=== PATIENT | male | born 1955 | race Caucasian/White ===

== ENCOUNTER 2020-05-22 19:19 | Day surgery (SDC) | payer MEDICARE, SELFPAY ==
[2020-05-22] VITALS (9 sets, daily range): BP systolic 108–142; BP diastolic 71–85; PULSE 72–84; RESP 18–20; TEMP 36.3–36.9; O2SAT 94–98; BMI 25.7
--- NOTE | 2020-05-22 20:31 | XRR_ITS ---
PROCEDURE INFORMATION: Exam: XR Left Femur Exam date and time: 05/22/2020 8:34 PM Age: 64 years old Clinical indication: Injury or trauma; Other: Chainsaw injury; Laceration; Thigh or upper leg; Left; Foreign body involvement not specified; Additional info: Chainsaw injury to left thigh. Laceration TECHNIQUE: Imaging protocol: XR Left femur. Views: 2 views. COMPARISON: No relevant prior studies available. FINDINGS: Bones/joints: No acute fracture or dislocation. Soft tissues: There is soft tissue edema and subcutaneous emphysema lateral left thigh. No foreign body. XR/XR femur LT min 2V* [id number] IMPRESSION: There is soft tissue edema and subcutaneous emphysema lateral left thigh. No foreign body.
[2020-05-22] MEDS: tetanus-dipt-pertussis 0.5 mL SDV IM (20:50)
[2020-05-22] MEDS: ondansetron 2 mg/ML SDV 2 mL 4 MG IVP (21:21)
[2020-05-22] MEDS: HYDROmorphone 1 mg/mL INJ 1 mL IVP (21:21)
--- NOTE | 2020-05-22 21:55 | W.ED.WOUNDLC ---
Documented by User: KEON Alvarez 05/22/20 22:53 HPI - Wound/Laceration General: Chief Complaint: Wound/Laceration Stated Complaint: LEFT LEG LAC Time Seen by Provider: 05/22/20 20:47 History of Present Illness: HPI narrative: Patient is a 64-year-old male comes to the ED with laceration to left thigh due to chainsaw. Patient says he was using a chainsaw cutting some wood and it kicked back and chainsaw struck his left upper thigh. He rates his pain an 8 out of 10. Patient said chainsaw slipped and cut into his left thigh. He says the laceration is deep and he could see that he cut through the muscle and thinks he could see bone. Patient taped wound to close up and minimize bleeding and then came to the ED. Patient needs an updated tetanus shot. Patient tetanus UTD: No Associated symptoms: Denies chills, fever(s), nausea or vomiting Review of Systems Const: Denies: fever(s), chills or fatigue Eyes: Denies: change in vision or eye discomfort ENMT: Denies: throat pain, odynophagia, nasal discharge or nasal congestion Card: Denies: chest pain, palpitations, edema, swelling of feet/ankles, dyspnea on exertion or orthopnea Resp: Denies: dyspnea, productive cough or non-productive cough GI: Denies: abdominal pain, nausea, vomiting, diarrhea, constipation or hematochezia : Denies: flank pain, difficulty urinating, dysuria or hematuria Musc: Reports: extremity pain (left thigh); Denies: neck pain, back pain or extremity swelling Skin/Breast: Reports: new lesions (left thigh deep laceration); Denies: rash Neuro: Denies: headache(s), numbness in extremities or weakness in extremities PFS ED PFSH: Medical History (Updated 05/22/20 @ 23:04 by Kalyan Segal MD) DJD (degenerative joint disease) H/O renal cell cancer Surgical History (Updated 05/22/20 @ 23:04 by Kalyan Segal MD) H/O hand surgery H/O laceration repair (05/22/20) H/O skin graft S/p nephrectomy Physical Exam Const: COMMON NORMALS: patient oriented x3 and alert GENERAL APPEARANCE: cooperative; not comfortable (uncomfortable due to pain) HENMT: COMMON NORMALS: normocephalic HEAD & SCALP: normocephalic MOUTH: Normal oral and palatal mucosa present THROAT: posterior oropharynx normal and uvula midline Neck/C-Spine: COMMON NORMALS: supple GENERAL: Yes normal visual inspection Resp: COMMON NORMALS: normal respiratory effort, No retractions, No use of accessory muscles and clear to auscultation bilaterally AUSCULTATION: clear to auscultation bilaterally Cardio: COMMON NORMALS: regular rate, regular rhythm, S1 normal heart sound present, S2 normal heart sound present, No gallops present (Cardio), No clicks present (Cardio), No murmurs present (Cardio) and Peripheral pulses 2+ throughout RATE: regular rate RHYTHM: regular rhythm HEART SOUNDS: S1 normal heart sound present and S2 normal heart sound present PERIPHERAL PULSES: Peripheral pulses 2+ throughout GI: COMMON NORMALS: Normal to inspection, nondistended, normoactive bowel sounds present, Soft to palpation, non-tender and no masses PALPATION: Yes Soft to palpation : COMMON NORMALS: Yes no CVA tenderness BLADDER/KIDNEY EXAM: Yes no CVA tenderness Back/Pelvis: COMMON NORMALS: no CVA tenderness Extremity: NARRATIVE EXTREMITY EXAM: Deep 14 cm linear laceration to the left upper thigh. It involves the muscle tissue. GENERAL: Yes normal exam except as noted Neuro: COMMON NORMALS: patient oriented x3 and moves all extremities SENSORIUM/ORIENTATION: Yes alert Skin: GENERAL SKIN EXAM: dry skin TRAUMA: laceration (14 cm linear deep laceration) linear, actively bleeding (minimal), contaminated (possibly contaminated with wood), involves subcutaneous tissue and involves muscle tissue Course Vital Signs: Vital signs: Vital Signs Temperature 98.5 F 05/22/20 22:31 Pulse Rate 76 05/22/20 22:33 Respiratory Rate 20 H 05/22/20 22:33 Blood Pressure 116/74 05/22/20 22:33 Pulse Oximetry 97 05/22/20 22:33 MDM - Wound/Laceration Imaging Data^: Xray Ortho: Attestation: I personally reviewed and interpreted this imaging study as follows: Radiologist's impression: [address] [address] XRay Report Signed Patient: Ezequiel Davis Unit #: [id number] : 1955 Age/Sex: 64 / M ADM Date: 05/22/20 Loc: ER Room/Bed: Attending Dr: Ordering Provider/Ordering MD: Misael Shaw Date of Service: 05/22/20 Procedure(s): XR femur LT min 2V* [id number] Accession Number(s): [id number] Report Number: [id number] PROCEDURE INFORMATION: Exam: XR Left Femur Exam date and time: 05/22/2020 8:34 PM Age: 64 years old Clinical indication: Injury or trauma; Other: Chainsaw injury; Laceration; Thigh or upper leg; Left; Foreign body involvement not specified; Additional info: Chainsaw injury to left thigh. Laceration TECHNIQUE: Imaging protocol: XR Left femur. Views: 2 views. COMPARISON: No relevant prior studies available. FINDINGS: Bones/joints: No acute fracture or dislocation. Soft tissues: There is soft tissue edema and subcutaneous emphysema lateral left thigh. No foreign body. XR/XR femur LT min 2V* [id number] IMPRESSION: There is soft tissue edema and subcutaneous emphysema lateral left thigh. No foreign body. Dictated By: Nohemi Valerio Signed By: Nohemi Valerio Signed Date/Time: 05/22/202099 DD/ 57 Discharge Plan Discharge Patient Disposition: Admitted As Inpatient Condition: Stable Discharge Diet: Advance as tolerated Discharge Activity: Increase activity as tolerated Coding Level of Care Code ED Memorial Adviser for Chg Fwd Exam Comprehensive Documented by User: Sanna Goldberg MD 05/22/20 23:18 HPI - Wound/Laceration General: Chief Complaint: Wound/Laceration Stated Complaint: LEFT LEG LAC Time Seen by Provider: 05/22/20 20:47 PFSH ED PFSH: Medical History (Updated 05/22/20 @ 23:04 by Kalyan Segal MD) DJD (degenerative joint disease) H/O renal cell cancer Surgical History (Updated 05/22/20 @ 23:04 by Kalyan Segal MD) H/O hand surgery H/O laceration repair (05/22/20) H/O skin graft S/p nephrectomy Procedures Nerve Block Nerve Block 1: Time out performed: Yes Local Anesthetic: lidocaine 1% Amount of anesthesia used (mL): 20 Side: left Nerve Blocks: femoral Procedure Successful: No (partial anesthesia to the thigh, but inadequate for procedure) Patient Tolerated Procedure: well and no complications Complications: none Course ED course: I saw this patient with KEON Alvarez. The lac is on the anterior thigh and is approx 20 cm in length - transverse to the leg. No bone involvement. Approx 1/2 - 3/4 of the quadriceps is cut. Many wood chips in the wood. I was not able to get adequate anesthesia to the wound to get adequate cleaning. Discussed with Dr. Londono - veterans rehabilitation counselor for ortho but as the bone was not involved he asked met [facility] general surgery. Dr. Segla will take him to the OR tonight. Vital Signs: Vital signs: Vital Signs Temperature 98.5 F 05/22/20 22:31 Pulse Rate 76 05/22/20 22:33 Respiratory Rate 20 H 05/22/20 22:33 Blood Pressure 116/74 05/22/20 22:33 Pulse Oximetry 97 05/22/20 22:33 Discharge Plan Discharge Patient Disposition: Admitted As Inpatient Condition: Stable Discharge Diet: Advance as tolerated Discharge Activity: Increase activity as tolerated Coding Level of Care Code ED Memorial Adviser for Chantale Fwd Exam Comprehensive
--- NOTE | 2020-05-22 22:38 | PM.HP ---
Providers/Chief Complaint Chief Complaint: LEFT LEG LAC History of Present Illness Ezequiel Davis is a 64 year old male who had a chainsaw accident around 6 PM and presented to the ER for further evaluation. Patient denies any history of alcohol consumption. He had a small amount of bleeding which subsequently stopped. Denies any loss of consciousness or any other injuries. X-ray of the left thigh did not reveal any bony injuries. An attempt was made at closure of the wound in the ER but was unsuccessful due to difficulty with pain control. Patient planes of pain but is able to bend his knee and denies any loss of sensation distal to the laceration. Review of Systems General: Reports: 10 or more systems reviewed and unremarkable except in HPI and below Medications/Allergies Allergies Allergy/AdvReac Type Severity Reaction Status Date / Time fentanyl Allergy ALGY-Rash Verified 05/22/20 21:05 morphine Allergy ALGY-Hives Verified 05/22/20 21:05 PFSH Acute PFSH: Medical History (Updated 05/22/20 @ 22:38 by Kalyan Segal MD) DJD (degenerative joint disease) H/O renal cell cancer Surgical History (Updated 05/22/20 @ 22:38 by Kalyan Segal MD) H/O hand surgery H/O skin graft S/p nephrectomy Vitals/I&O/Wt Last Vital Signs Temp 98.5 F 05/22/20 22:31 Pulse 76 05/22/20 22:33 Resp 20 H 05/22/20 22:33 BP 116/74 05/22/20 22:33 Pulse Ox 97 05/22/20 22:33 Weight last 48 hrs Weight 200 lb Physical Exam Narrative: EXAM NARRATIVE: HEENT: Normocephalic Eye: Sclera /conjunctiva normal Respiratory and chest: Bilateral clear breath sounds on auscultation Cardiovascular: Normal S1 and S2 heart sounds Abdomen: Soft to palpation, multiple scars, skin graft to the abdominal wall Neurological: Oriented to place person and time Skin: Intact, 20 cm laceration on the anterior aspect of the left thigh, no significant hematoma or cellulitis noted A&P Assessment and plan (1) Laceration: 64-year-old male with traumatic laceration on the left thigh from a chainsaw. Patient is currently hemodynamically stable Plan for washout and closure of left thigh wound under MAC today Procedure, risks, benefits and alternatives have been discussed with the patient who wishes to proceed with surgery. Status: Acute Attestations Medical Necessity Statement*: Left thigh laceration requiring surgery Coding Level of Care Code Acute Guest Service Host for Chantale Soria Diagnoses Laceration
--- NOTE | 2020-05-22 22:50 | ANES.PREANE2 ---
Pre-Anesthetic Assessment Pre-Anesthetic Assessment: Height/Weight: Height 1.88 m Weight 90.718 kg Temp Pulse Resp BP Pulse Ox 98.5 F 76 20 H 116/74 97 05/22/20 22:31 05/22/20 22:33 05/22/20 22:33 05/22/20 22:33 05/22/20 22:33 Preop Diagnosis: Laceration left leg Proposed Procedure: Operation Date: 05/22/20 22:45 Proposed Procedures p Laceration Repair Lower Extremity(Left) - Kalyan Segal MD Was Beta Clara taken within 24 hours: N/A Last intake: Intake Last Liquid Date 05/22/20 Last Liquid Time 11:00 Last Solid Date 05/22/20 Last Solid Time 11:00 Last Intake: 10:00 Social: Social History: Tobacco and No alcohol Exam: Pre-Anes Outpt Exam: alert, oriented x 3, clear to auscultation bilaterally and regular rate & rhythm Airway: Submandibular: WNL Cervical ROM: WNL MP: 2 Additional comments: Poor dentition Pulmonary: Pulmonary: COPD Anesthetic Plan: ASA status: 2E Anesthesia: General Risk of > 500 ml blood loss (7ml/kg in children): No PFSH Anesthesia PFSH: Medical History (Updated 05/22/20 @ 22:38 by Kalyan Segal MD) DJD (degenerative joint disease) H/O renal cell cancer Surgical History (Updated 05/22/20 @ 22:38 by Kalyan Segal MD) H/O hand surgery H/O skin graft S/p nephrectomy Data Anesthesia Cardiac Studies: No Data to Display
--- NOTE | 2020-05-22 23:04 | PM.OP ---
Operative Report Date of procedure: May 22, 2020 Pre-op Diagnosis: Laceration left thigh measuring 15 x 3 cm Post-op Diagnosis: Laceration left thigh measuring by 10 x 3 cm Laceration involving the rectus femoris muscle Procedure Done: Washout and repair of laceration left thigh measuring 15 x 3 x 5 cm Pathology: none sent Surgeon: Kalyan Segal Anesthesia: General Condition: stable Disposition: PACU Procedure: The patient was taken to the operating room and intubated under general anesthesia after IV antibiotic had been administered. The wound was irrigated with 6 L of saline using a Pulsavac. There is no significant bleeding noted. Examination of the laceration revealed a wound measuring 15 x 3 x 5 cm involving the mid thigh. The laceration extended through the rectus femoris muscle. The fascia of the rectus femoris muscle was closed using [id number] 0 Vicryl suture and the subcutaneous tissues approximated using interrupted 0 Vicryl suture and skin was closed with adams. Antibiotic cream, Telfa, ABD, Kerlix gauze and Farrukh wrap was used to cover the incision. The patient was transferred to recovery room in stable condition.
--- NOTE | 2020-05-22 23:55 | SUR.PHASEI ---
0093 PT VERY AWAKE ALERT ON RA PT TALKATIVE WITH STAFF , ASKING APPROP QUESTIONS TAKING SIPS OF SODA, VSS NO DISTRESS NOTED FAMILY IN TO OPS ROOM.
[2020-05-23 00:04] VITALS: BP 125/81; PULSE 74; RESP 18; O2SAT 94
[2020-05-23] MEDS: HYDROcodone-acetaminophen 5-325 mg Tablet 3 TAB PO (00:05)
--- NOTE | 2020-05-24 07:58 | ANE.PACU2 ---
Inpatient post-anesthesia follow up: Airway intact: Yes Vital signs: Temperature 98.5 F Pulse Rate [Left R adial] 72 Pulse Rate 74 Respiratory Rate 18 Blood Pressure [Ri ght Arm] 108/71 Blood Pressure 125/81 Pulse Oximetry 94 Oxygen Delivery Me thod Room Air Oxygen Flow Rate 8 Fraction of Inspir ed Oxygen Hydration adequate: Yes Nausea and vomiting: No Pain level: 1 Mental status: Baseline
== END 2020-05-23 00:24 | disposition home or self-care (01) ==
LOC: ER 20:50 → OPS 23:00
PROVIDERS: Emergency Provider Emergency Medicine; Family Provider Family Medicine; Visit Provider Surgery
PROC: (CPT 12035; principal; 2020-05-22 22:45)
DX: S71.112A Laceration without foreign body, left thigh, initial encounter (principal); W29.3XXA Contact with powered garden and outdoor hand tools and machinery, initial encounter; M19.90 Unspecified osteoarthritis, unspecified site
CPT/HCPCS: 12035; 12345; 73552; 90471; 90715; 99282; J0131; J0690; J1100; J1170; J2405; J2704; J3010; J3490

== ENCOUNTER → 2023-07-17 14:00 | Outpatient (BNVA) | payer MEDICARE, SELFPAY | PROVIDERS: Family Provider Family Medicine; PCP Family Medicine; Visit Provider Nurse Practitioner Family | DX: K21.9 Gastro-esophageal reflux disease without esophagitis | CPT/HCPCS: 80053; 85025 ==

== ENCOUNTER 2023-07-22 13:13 | Emergency (ER) | payer MEDICARE, SELFPAY ==
[2023-07-22 13:19] VITALS: BP 131/98; PULSE 109; RESP 18; TEMP 36.4; O2SAT 94
--- NOTE | 2023-07-22 13:29 | ED_ITS ---
HPI - Abdominal Pain 2 General: Chief Complaint: Abdominal Pain Stated Complaint: blood in stool, fall Time Seen by Provider: 07/22/23 13:16 Source: patient Mode of arrival: wheelchair Limitations: no limitations History of Present Illness: Patient is a 67-year-old male who presents to ED today along with his friend for concerns of upper abdominal pain as well as other worrisome symptoms. Patient states he is having severe acid reflux. No prior history of this per patient. He has a history of a hernia mesh in his abdomen. He states approximately 1.5 weeks ago he tripped and fell while he was unloading a motorcycle. He states immediately after the fall he felt like something in his abdomen knotted up and he has had significant discomfort since-feels like he messed up my mesh . He feels like most of his pain is epigastric region but states it radiates into his chest. Patient states he has not been able to eat or drink anything as he immediately vomits it up. He has not been passing much stool or gas although admitting has not ate much. He has had small amounts of stool that he describes as black and tarry. His friend that accompanies him states that patient has been bed bound over the past week as he is getting weak secondary to not eating. He states he has lost close to 20 pounds. He arrives tachycardic but otherwise with stable vitals. He was seen at a clinic on 07/16 and given Pantoprazole and Carafate which he states he has been taking. MD elicited complaint: abdominal pain Pertinent past history: other (acid reflux, hernia mesh) Onset (ago): day(s) Pain Consistency: constant Location: Diffuse, Chest and Epigastric Severity: severe Quality: sharp Radiation: none Migration to: no migration Exacerbating factors: eating Relieving factors: nothing Associated Symptoms: Reports change in bowel habits, melena, nausea and vomiting; Denies chills, dysuria, fever(s), hematemesis and syncope Review of Systems 2 Const: Denies: fever(s), chills, body aches, fatigue or malaise Card: Reports: chest pain; Denies: palpitations, irregular heart rhythm, edema, swelling of feet/ankles, lightheadedness, syncope, pre-syncope, dyspnea on exertion, orthopnea, leg pain with exertion or acrocyanosis Resp: Denies: dyspnea, productive cough, non-productive cough, wheezing, pain on inspiration, hemoptysis or chest congestion GI: Reports: abdominal pain, nausea, vomiting, change in bowel habits and melena; Denies: hematemesis : Denies: flank pain, difficulty urinating, dysuria, urinary frequency, urinary urgency or urinary hesitancy Musc: Denies: neck pain, back pain, extremity pain or joint pain Skin/Breast: Denies: rash Neuro: Reports: other (generalized weakness); Denies: headache(s), numbness in extremities, weakness in extremities, sensory changes or dizziness PFSH ED 2 PFSH: Medical History DJD (degenerative joint disease) H/O renal cell cancer Surgical History H/O laceration repair (05/22/20) H/O hand surgery S/p nephrectomy H/O skin graft Physical Exam 2 Const: COMMON NORMALS: average body habitus, patient oriented x3, healthy appearing, alert and well nourished GENERAL APPEARANCE: cooperative and in distress (appears weak/uncomfortable) HENMT: COMMON NORMALS: normocephalic and atraumatic HEAD & SCALP: normal to inspection, normocephalic and atraumatic Eye: COMMON NORMALS: no scleral icterus Neck/C-Spine: COMMON NORMALS: full ROM, no lymphadenopathy, supple and no meningeal signs Chest: COMMONS NORMALS: normal inspection of the chest Resp: COMMON NORMALS: normal respiratory effort and clear to auscultation bilaterally AUSCULTATION: clear to auscultation bilaterally Cardio: COMMON NORMALS: regular rate RATE: regular rate and tachycardic GI: COMMON NORMALS: No hepatosplenomegaly present and no masses INSPECTION: Yes normal to inspection and Yes scar (large-lower abdomen that he states is from previous skin graft) AUSCULTATION: Yes Absent bowel sounds PALPATION: Yes Tenderness to palpation present (GI) (across upper/mid abdomen ), No Guarding due to palpation present (GI), No Rigid due to palpation and Yes No hepatosplenomegaly present : COMMON NORMALS: Yes no CVA tenderness BLADDER/KIDNEY EXAM: Yes no CVA tenderness Back/Pelvis: COMMON NORMALS: no CVA tenderness and thoracic and lumbar spine normal to inspection Extremity: COMMON NORMALS: normal to inspection, capillary refill normal, no clubbing, cyanosis or edema, no calf tenderness and no pedal edema GENERAL: Y es normal exam except as noted Neuro: ELIAZAR COMA SCALE: document GCS findings Eliazar coma scale eye opening: Spontaneous Clancy coma scale verbal response: Orientated Clancy coma scale motor response: Obey commands Clancy coma scale total score: 15 COMMON NORMALS: patient oriented x3, moves all extremities, no focal motor deficits and no sensory deficits noted SENSORIUM/ORIENTATION: Yes alert MENINGEAL SIGNS: Yes no meningeal signs Skin: COMMON NORMALS: no rashes or lesions noted GENERAL SKIN EXAM: no rashes or lesions noted Course 2 Vital Signs: Vital signs: Vital Signs Temperature 97.6 F 07/22/23 13:19 Pulse Rate 97 07/22/23 16:29 Respiratory Rate 18 07/22/23 13:19 Blood Pressure 131/98 07/22/23 13:19 Pulse Oximetry 93 07/22/23 16:29 Oxygen Delivery Me thod Room Air 07/22/23 16:29 MDM - Abdominal Pain Medical Decision Making Patient is a 67-year-old male here for complaints of abdominal pain over the past week and a half or so. Also complaining of pain radiating into his chest. He feels like symptoms started following a fall. Because of history of trauma and nonimprovement on the PPI/Carafate he was placed in the walk-in clinic, CT imaging obtained to rule out more ominous etiology. CT scan is essentially normal apart from findings consistent with gastritis. Patient's blood work shows a normal white count. He does have elevations to his BUN/Cr 26/1.3 (unknown baseline but had labs done a few days ago while at the walk in clinic and these have not changed much). He does have a solitary kidney. He is reporting decreased urination due to lack of oral intake at home. Patient was given a liter of fluids here. He was given GI cocktail but vomited it up. Did hold down some water/applesauce. Given his entire clinical picture of non- improving/worsening gastritis despite PPI/Carafate and possibility of mild acute kidney injury (again no baseline labs) in the presence of a solitary kidney, I did recommend hospitalization but patient declines and would like to go home. Recommend he continue taking his pantoprazole (start taking twice daily if he has not already) and the Carafate. [place] liquid diet and advance as tolerated. If he is not significantly better in the next 24-48 he states he will return to ED. I will go ahead and place case management referral to get him set up with general surgery/GI for evaluation for endoscopy. Medical Records I reviewed the patient's medical records. Lab Data I reviewed the patient's lab results. 07/22/23 13:56 07/22/23 13:56 Labs/Radiology: Radiology Impressions Chest/Abdomen/Pelvis CT 07/22/23 13:32 IMPRESSION: No acute findings. IMPRESSION: Findings consistent with gastritis Laboratory Results WBC 8.74 10^3/uL (3.29-11.43) 07/22/23 13:56 RBC 5.26 10^6/uL (3.85-5.65) 07/22/23 13:56 Hgb 16.70 g/dL (11.27-16.99) 07/22/23 13:56 Hct 50.2 % (37-53) 07/22/23 13:56 MCV 95.4 fl (82-101) 07/22/23 13:56 MCH 31.7 pg (27-33) 07/22/23 13:56 MCHC 33.3 g/dL (30-55) 07/22/23 13:56 RDW 12.4 % (12.1-15.1) 07/22/23 13:56 Plt Count 448 10^3/cmm (157-399) H 07/22/23 13:56 MPV 10.5 fL (7.4-10.4) H 07/22/23 13:56 Neut % (Auto) 67.4 % 07/22/23 13:56 Lymph % (Auto) 21.2 % 07/22/23 13:56 Dewitt % (Auto) 6.3 % 07/22/23 13:56 Eos % (Auto) 3.8 % 07/22/23 13:56 Baso % (Auto) 0.8 % 07/22/23 13:56 Neut # (Auto) 5.90 10^3/uL (1.8-7.7) 07/22/23 13:56 Lymph # (Auto) 1.9 10^3/uL (0.8-4.8) 07/22/23 13:56 Dewitt # (Auto) 0.6 10^3/uL (0.2-0.9) 07/22/23 13:56 Eos # (Auto) 0.3 10^3/uL (0.0-0.8) 07/22/23 13:56 Baso # (Auto) 0.1 10^3/uL (0.0-0.1) 07/22/23 13:56 Nucleated RBC % (auto) 0 % 07/22/23 13:56 Nucleated RBCs # 0.0 /100WBC 07/22/23 13:56 PT 13.40 SECONDS (12.1-14.9) 07/22/23 13:56 INR 0.99 (0.8-1.2) 07/22/23 13:56 APTT 28.2 SECONDS (23.9-36.7) 07/22/23 13:56 Sodium 135 mmol/L (136-145) L 07/22/23 13:56 Potassium 4.0 mmol/L (3.5-5.1) 07/22/23 13:56 Chloride 96 mmol/L (98-107) L 07/22/23 13:56 Carbon Dioxide 21 mmol/L (22-29) L 07/22/23 13:56 Anion Gap 22.0 (5-19) H 07/22/23 13:56 BUN 26 mg/dL (8-23) H 07/22/23 13:56 Creatinine 1.3 mg/dL (0.7-1.2) H 07/22/23 13:56 GFR Calculation 54.9 mL/min (90-130) L 07/22/23 13:56 Glucose 100 mg/dL (65-115) 07/22/23 13:56 Calculated Osmolality 285 mOsm/kg (285-295) 07/22/23 13:56 Lactic Acid 1.6 mmol/L (0.5-2.2) 07/22/23 13:56 Calcium 9.8 mg/dL (8.5-10.5) 07/22/23 13:56 Total Bilirubin 0.5 mg/dL (0.15-1.2) 07/22/23 13:56 AST 11 U/L (0-40) 07/22/23 13:56 ALT 11 U/L (0-41) 07/22/23 13:56 Alkaline Phosphatase 163 U/L (40-130) H 07/22/23 13:56 Total Protein 8.2 g/dL (6.6-8.7) 07/22/23 13:56 Albumin 4.3 g/dL (3.5-5.2) 07/22/23 13:56 Globulin 3.9 g/dL (1.3-4.6) 07/22/23 13:56 Lipase 35 U/L (13-60) 07/22/23 13:56 All radiology interpretation(s) finalized by discharge Discharge Plan Discharge Patient Disposition: Home Clinical Impression: Gastritis Qualifiers: Gastritis type: unspecified gastritis Chronicity: acute Gastritis bleeding: w ithout bleeding Qualified Code(s): K29.00 - Acute gastritis without bleeding Condition: Stable Prescriptions: No Action sucralfate [Carafate] 1 gram tablet 1 g PO TID 30 Days Qty: 90 0RF ondansetron 4 mg tablet,disintegrating 4 mg PO QID PRN (Reason: nausea and vomiting) Qty: 30 0RF pantoprazole [Protonix] 40 mg tablet,delayed release (DR/EC) 40 mg PO BID Qty: 60 0RF Discharge Orders: Discharge ED (Routine); Ordered 07/22/23 Ordered By: Rosana Muñiz Referrals: Jodie Marshall MD [Primary Care Provider] - Patient Instructions: Gastritis (DC) Activity Restrictions/Additional Instructions: As we discussed continue your medications as directed. I want you to do a bland liquid diet over the next 48 hours and slowly advance as tolerated. As we discussed I have recommended admission into the hospital but you have declined and would like to go home at this time. If over the next 24 to 48 hours he did not notice any significant improvement in your symptoms you need to return to the emergency department which you said you are agreeable to. Coding Level of Care Code ED Revenue Accountant for Chantael Soria
--- NOTE | 2023-07-22 13:32 | CTR_ITS ---
PROCEDURE INFORMATION: Exam: CT Chest With Contrast; Diagnostic Exam date and time: 07/22/2023 2:53 PM Age: 67 years old Clinical indication: Abdominal pain; Generalized; Chest wall pain; Prior surgery; Surgery date: 6+ months; Surgery type: Kidney, hernia, appy; Additional info: Fall, chest/abdominal pain; N/v, not passing much stool/gas TECHNIQUE: Imaging protocol: Diagnostic computed tomography of the chest with contrast. Radiation optimization: All CT scans at this facility use at least one of these dose optimization techniques: automated exposure control; mA and/or kV adjustment per patient size (includes targeted exams where dose is matched to clinical indication); or iterative reconstruction. Contrast material: OMNI 350; Contrast volume: 100 ml; Contrast route: INTRAVENOUS (IV); COMPARISON: NM bone scan whole body* [id number] 04/12/2017 9:49 AM RADIATION DOSE METRICS: Total DLP (mGy-cm): 1191.11 FINDINGS: Lungs: Unremarkable. No consolidation. No masses. Pleural spaces: Unremarkable. No pneumothorax. No pleural effusion. Heart: Unremarkable. No cardiomegaly. No pericardial effusion. Lymph nodes: Unremarkable. No enlarged lymph nodes. Vasculature: Unremarkable. No aortic aneurysm. Bones/joints: Multiple old left-sided rib fractures are noted but I see no new rib fracture. Soft tissues: Unremarkable. PROCEDURE INFORMATION: Exam: CT Abdomen And Pelvis With Contrast Exam date and time: 07/22/2023 2:53 PM Age: 67 years old Clinical indication: Abdominal pain; Generalized; Chest wall pain; Prior surgery; Surgery date: 6+ months; Surgery type: Kidney, hernia, appy; Additional info: Fall, chest/abdominal pain; N/v, not passing much stool/gas TECHNIQUE: Imaging protocol: Computed tomography of the abdomen and pelvis with contrast. Radiation optimization: All CT scans at this facility use at least one of these dose optimization techniques: automated exposure control; mA and/or kV adjustment per patient size (includes targeted exams where dose is matched to clinical indication); or iterative reconstruction. Contrast material: OMNI 350; Contrast volume: 100 ml; Contrast route: INTRAVENOUS (IV); COMPARISON: CT abdomen pelvis w con* [id number] 02/28/2017 2:01 PM RADIATION DOSE METRICS: Total DLP (mGy-cm): 1191.11 FINDINGS: Lungs: Lung bases are clear. No pleural effusion. Liver: Normal. No mass. Gallbladder and bile ducts: Normal. No calcified stones. No ductal dilation. Pancreas: Normal. No ductal dilation. Spleen: Normal. No splenomegaly. Adrenal glands: Normal. No mass. Kidneys and ureters: There is surgical absence of the left kidney. Stomach and bowel: There is inflammation involving the wall of the distal stomach. Appendix: No evidence of appendicitis. Intraperitoneal space: Unremarkable. No free air. No significant fluid collection. Vasculature: Unremarkable. No abdominal aortic aneurysm. Lymph nodes: Unremarkable. No enlarged lymph nodes. Urinary bladder: Unremarkable as visualized. Reproductive: Unremarkable as visualized. Bones/joints: Unremarkable. No acute fracture. Soft tissues: Unremarkable. CT/CT chest abdpel w/*[id number] IMPRESSION: No acute findings. IMPRESSION: Findings consistent with gastritis
--- NOTE | 2023-07-22 13:44 | ECG_ITS ---
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 Measurements Intervals [place] Rate: 98 P: 72 NM: 155 QRS: 55 QRSD: 106 T: 77 QT: 351 QTc: 449 Interpretive Statements SINUS RHYTHM No previous ECG available for comparison Electronically Signed On 07-23-2023 21:46:42 CDT by Chinmay Schroeder M.D. [id number]
[2023-07-22 14:11] LABS: Basophils # 0.1 10^3/uL (0.0-0.1); Basophils % 0.8 %; Eosinophils # 0.3 10^3/uL (0.0-0.8); Eosinophils % 3.8 %; Hematocrit 50.2 % (37-53); Lymphocytes # 1.9 10^3/uL (0.8-4.8); Lymphocytes % 21.2 %; Mean Corpuscular HGB Conc 33.3 g/dL (30-55); Mean Corpuscular Hemoglobin 31.7 pg (27-33); Mean Corpuscular Volume 95.4 fl (82-101); Mean Platelet Volume 10.5 fL (7.4-10.4); Monocytes # 0.6 10^3/uL (0.2-0.9); Monocytes % 6.3 %; Neutrophils % 67.4 %; Nucleated Red Blood Cells % 0 %; Platelet Count 448 10^3/cmm (157-399); Red Blood Count 5.26 10^6/uL (3.85-5.65); Red Cell Distribution Width 12.4 % (12.1-15.1); White Blood Count 8.74 10^3/uL (3.29-11.43)
[2023-07-22] MEDS: ondansetron 2 mg/ML SDV 2 mL 4 MG IVP (14:21)
[2023-07-22] MEDS: sodium chloride 0.9% 1,000 ML 999 ML IV (14:22)
[2023-07-22 14:26] LABS: INR 0.99 (0.8-1.2)
[2023-07-22 14:27] LABS: Partial Thromboplastin Time 28.2 SECONDS (23.9-36.7)
[2023-07-22 14:35] LABS: Alanine Aminotransferase 11 U/L (0-41); Albumin Level 4.3 g/dL (3.5-5.2); Alkaline Phosphatase 163 U/L (40-130); Aspartate Amino Transferase 11 U/L (0-40); Blood Urea Nitrogen 26 mg/dL (8-23); Calcium 9.8 mg/dL (8.5-10.5); Carbon Dioxide 21 mmol/L (22-29); Chloride 96 mmol/L (98-107); Globulin 3.9 g/dL (1.3-4.6); Glomerular Filtration Rate 54.9 mL/min (90-130); Glucose 100 mg/dL (65-115); Lactic Sepsis W/Reflex 1.6 mmol/L (0.5-2.2); Lipase 35 U/L (13-60); Osmolality Calculated 285 mOsm/kg (285-295); Sodium 135 mmol/L (136-145); Total Bilirubin 0.5 mg/dL (0.15-1.2); Total Protein 8.2 g/dL (6.6-8.7)
[2023-07-22 14:40] LABS: Creatinine Clr Calc Pharmacy 66.8289
[2023-07-22] MEDS: iohexol 350 mg/mL 500 mL Btl (per mL) IV (14:52)
[2023-07-22] MEDS: lidocaine 2% viscous 15 ML, aluminum-mag hydrox-simethicon 30 ML, sucralfate oral liq 1 GM PO (15:42)
[2023-07-22] MEDS: pantoprazole 40 mg SDV IVP (15:42)
[2023-07-22 16:29] VITALS: PULSE 97; O2SAT 93
--- NOTE | 2023-07-24 07:40 | DCPLANNER ---
A message was sent to general surgery on 07/24/23 at 0740. [facility] to contact patient
== END 2023-07-22 17:12 | disposition home or self-care (01) ==
PROVIDERS: Emergency Provider Physician Assistant; PCP Family Medicine
DX: K29.00 Acute gastritis without bleeding (principal); Z85.528 Personal history of other malignant neoplasm of kidney
CPT/HCPCS: 36415; 71260; 74177; 80053; 83605; 83690; 85025; 85610; 85730; 93005; 96374; 96375; 99285; C9113; J2405; J7030; Q9967

== ENCOUNTER → 2023-07-25 13:05 | Outpatient (BNVA) | payer MEDICARE, SELFPAY | PROVIDERS: PCP Family Medicine; Referring Provider Physician Assistant; Visit Provider Surgery | DX: K29.00 Acute gastritis without bleeding (principal) | CPT/HCPCS: 99204; 99214 ==

== ENCOUNTER 2023-07-27 11:33 | Inpatient (IN) | payer MEDICARE, SELFPAY ==
[2023-07-27] VITALS (9 sets, daily range): BP systolic 124–146; BP diastolic 82–100; PULSE 88–124; RESP 14–18; TEMP 36.4–36.7; O2SAT 91–99; BMI 24.1
--- NOTE | 2023-07-27 12:08 | ED_ITS ---
HPI - Nausea/Vomiting/Diarrhea 2 General: Chief complaint: Nausea/Vomiting/Diarrhea Stated complaint: N/V, not eating, abd pain Time Seen by Provider: 07/27/23 11:54 Source: patient Mode of arrival: ambulatory History of Present Illness: 59-year-old male presents emergency room with nausea vomiting vague abdominal discomfort this been going on for several weeks he reports he is lost about 50 pounds in that time. He had very minimal urine output in the last 48 hours he estimates he is only had 200 out. He has a history of a left renal cell carcinoma and underwent left nephrectomy. Denies chest pain he does have some mild shortness of breath with exertion. No fever sweats or chills denies hematochezia melena hematemesis coffee-ground emesis or hematuria. MD elicited complaint: nausea and vomiting Onset (ago): week(s) (1) Description of vomiting: watery and bilious Description of diarrhea: watery Associated nausea: Yes Associated abdominal pain: Yes Location of pain: Epigastric and RUQ Quality: aching Exacerbating factors: eating and vomiting Relieving factors: none Associated symtoms: Reports nausea; Denies altered mental status, anxiety, bloating, change in vision, chest pain, cough, diaphoresis, decreased urine output, dizziness, dysuria, epistaxis, fatigue, fecal incontinence, fevers/chills, headache(s), anorexia, malaise, myalgias, numbness, palpitations, rash, short of breath, syncope, tenesmus, tinnitus or weakness Review of Systems 2 Const: Denies: fever(s), chills, fatigue, malaise or diaphoresis Eyes: Denies: change in vision ENMT: Denies: tinnitus or epistaxis Card: Denies: chest pain, palpitations or syncope Resp: Denies: dyspnea GI: Reports: nausea; Denies: abdominal pain, bloating or fecal incontinence : Denies: dysuria, urinary frequency or urinary urgency Musc: Denies: neck pain or back pain Skin/Breast: Denies: rash Neuro: Denies: headache(s) or dizziness Psych: Denies: anxiety PFSH ED 2 PFSH: Medical History (Updated 07/27/23 @ 17:14 by Alan Monterroso DO) Broken fibula Broken tibia DJD (degenerative joint disease) H/O renal cell cancer Surgical History (Updated 07/27/23 @ 15:32 by Darren Palacios MD) Hx of colonoscopy 2005 [place] H/O laceration repair (05/22/20) H/O hand surgery S/p nephrectomy Left-sided nephrectomy H/O skin graft Family History Father Cancer stomach Social History Smoking and tobacco/nicotine status: current every day tobacco/nicotine user cigarettes Alcohol intake: never Physical Exam 2 Const: COMMON NORMALS: no acute distress EXAM LIMITATIONS: no altered mental status GENERAL APPEARANCE: cooperative and comfortable O RIENTATION/CONSCIOUSNESS: Yes awake, Yes oriented to person, Yes oriented to place and Yes oriented to time HENMT: COMMON NORMALS: normocephalic, atraumatic and hearing grossly normal bilaterally HEAD & SCALP: normocephalic and atraumatic Resp: COMMON NORMALS: normal respiratory effort, No retractions, No use of accessory muscles and clear to auscultation bilaterally AUSCULTATION: clear to auscultation bilaterally Cardio: COMMON NORMALS: regular rate, regular rhythm and No murmurs present (Cardio) RATE: regular rate RHYTHM: regular rhythm GI: COMMON NORMALS: Soft to palpation and No hepatosplenomegaly present A USCULTATION: Yes normoactive bowel sounds PALPATION: Yes Soft to palpation, No Tenderness to palpation present (GI), No Guarding due to palpation present (GI) and Yes No hepatosplenomegaly present Extremity: COMMON NORMALS: normal to inspection, capillary refill normal, no clubbing, cyanosis or edema, no calf tenderness and no pedal edema Neuro: SENSORIUM/ORIENTATION: Yes oriented to person, Yes oriented to place and Yes oriented to time Skin: COMMON NORMALS: no rashes or lesions noted GENERAL SKIN EXAM: no rashes or lesions noted Course 2 Vital Signs: Vital signs: Vital Signs Temperature 97.6 F 07/27/23 11:43 Pulse Rate 89 07/27/23 15:40 Respiratory Rate 14 07/27/23 15:40 Blood Pressure 132/82 07/27/23 17:10 Pulse Oximetry 91 07/27/23 15:40 Oxygen Delivery Me thod Room Air 07/27/23 12:29 MDM - Nausea/Vomiting/Diarrhea Medical Decision Making Acute kidney injury. Additionally some thickening of the stomach. Patient is reporting significant weight loss that should likely have EGD to further evaluate. Discussed with hospitalist orders written IV fluids initiated. Lactic acid and anion gap are elevated. Suspect the lactic acid is due to his dehydration which is also the cause of his acute renal injury. Discussed with Dr. Palacios. Medical Records I reviewed the patient's medical records. Lab Data I reviewed the patient's lab results. 07/27/23 12:24 07/27/23 12:24 Radiology Impressions Abdomen/Pelvis CT 07/27/23 13:23 IMPRESSION: 1. No acute findings. 2. Stable thickening of wall gastric antrum. This is likely due gastritis. Laboratory Results WBC 13.72 10^3/uL (3.29-11.43) H 07/27/23 12:24 RBC 6.36 10^6/uL (3.85-5.65) H 07/27/23 12:24 Hgb 20.10 g/dL (11.27-16.99) H 07/27/23 12:24 Hct 60.0 % (37-53) H 07/27/23 12:24 MCV 94.3 fl (82-101) 07/27/23 12:24 MCH 31.6 pg (27-33) 07/27/23 12:24 MCHC 33.5 g/dL (30-55) 07/27/23 12:24 RDW 12.7 % (12.1-15.1) 07/27/23 12:24 Plt Count 442 10^3/cmm (157-399) H 07/27/23 12:24 MPV 11.5 fL (7.4-10.4) H 07/27/23 12:24 Neut % (Auto) 82.3 % 07/27/23 12:24 Lymph % (Auto) 12.2 % 07/27/23 12:24 [place] % (Auto) 4.5 % 07/27/23 12:24 Eos % (Auto) 0.2 % 07/27/23 12:24 Baso % (Auto) 0.4 % 07/27/23 12:24 Neut # (Auto) 11.27 10^3/uL (1.8-7.7) H 07/27/23 12:24 Lymph # (Auto) 1.7 10^3/uL (0.8-4.8) 07/27/23 12:24 [place] # (Auto) 0.6 10^3/uL (0.2-0.9) 07/27/23 12:24 Eos # (Auto) 0.0 10^3/uL (0.0-0.8) 07/27/23 12:24 Baso # (Auto) 0.1 10^3/uL (0.0-0.1) 07/27/23 12:24 Nucleated RBC % (auto) 0 % 07/27/23 12:24 Nucleated RBCs # 0.0 /100WBC 07/27/23 12:24 Sodium 146 mmol/L (136-145) H 07/27/23 12:24 Potassium 4.5 mmol/L (3.5-5.1) 07/27/23 12:24 Chloride 96 mmol/L (98-107) L 07/27/23 12:24 Carbon Dioxide 27 mmol/L (22-29) 07/27/23 12:24 Anion Gap 27.5 (5-19) H 07/27/23 12:24 BUN 86 mg/dL (8-23) H* D 07/27/23 12:24 Creatinine 3.8 mg/dL (0.7-1.2) H 07/27/23 12:24 GFR Calculation 15.9 mL/min (90-130) L 07/27/23 12:24 Glucose 149 mg/dL (65-115) H 07/27/23 12:24 Calculated Osmolality 331 mOsm/kg (285-295) H 07/27/23 12:24 Lactic Acid 3.2 mmol/L (0.5-2.2) H 07/27/23 12:24 Calcium 10.7 mg/dL (8.5-10.5) H 07/27/23 12:24 Total Bilirubin 0.6 mg/dL (0.15-1.2) 07/27/23 12:24 AST 14 U/L (0-40) 07/27/23 12:24 ALT 10 U/L (0-41) 07/27/23 12:24 Alkaline Phosphatase 174 U/L (40-130) H 07/27/23 12:24 Total Protein 9.7 g/dL (6.6-8.7) H 07/27/23 12:24 Albumin 5.1 g/dL (3.5-5.2) 07/27/23 12:24 Globulin 4.6 g/dL (1.3-4.6) 07/27/23 12:24 Lipase 63 U/L (13-60) H 07/27/23 12:24 All radiology interpretation(s) finalized by discharge Discharge Plan Discharge Patient Disposition: Admitted As Inpatient Admit Provider: Darren Palacios Clinical Impression: Acute renal failure, Hypernatremia, Gastritis, Abdominal pain, High anion gap metabolic acidosis, Dehydration, Elevated lactic acid level Condition: Stable Coding Level of Care Code ED Him Coder for Chantale Soria
--- NOTE | 2023-07-27 12:11 | PC.PHAR ---
PT STATES HE TAKES BOTH LIQUID AND TABLET FORM OF SUCRALFATE AND HAS TAKEN ALL 4 OF HIS MEDICATIONS TODAY.
[2023-07-27 12:31] LABS: Basophils # 0.1 10^3/uL (0.0-0.1); Basophils % 0.4 %; Eosinophils % 0.2 %; Lymphocytes # 1.7 10^3/uL (0.8-4.8); Lymphocytes % 12.2 %; Mean Corpuscular HGB Conc 33.5 g/dL (30-55); Mean Corpuscular Hemoglobin 31.6 pg (27-33); Mean Corpuscular Volume 94.3 fl (82-101); Mean Platelet Volume 11.5 fL (7.4-10.4); Monocytes # 0.6 10^3/uL (0.2-0.9); Monocytes % 4.5 %; Neutrophils # 11.27 10^3/uL (1.8-7.7); Neutrophils % 82.3 %; Nucleated Red Blood Cells % 0 %; Platelet Count 442 10^3/cmm (157-399); Red Blood Count 6.36 10^6/uL (3.85-5.65); Red Cell Distribution Width 12.7 % (12.1-15.1); White Blood Count 13.72 10^3/uL (3.29-11.43)
[2023-07-27 12:50] LABS: Lactic Sepsis W/Reflex 3.2 mmol/L (0.5-2.2)
[2023-07-27 12:53] LABS: Alanine Aminotransferase 10 U/L (0-41); Albumin Level 5.1 g/dL (3.5-5.2); Alkaline Phosphatase 174 U/L (40-130); Anion Gap 27.5 (5-19); Aspartate Amino Transferase 14 U/L (0-40); Calcium 10.7 mg/dL (8.5-10.5); Carbon Dioxide 27 mmol/L (22-29); Chloride 96 mmol/L (98-107); Creatinine Clr Calc Pharmacy 21.3534; Globulin 4.6 g/dL (1.3-4.6); Glomerular Filtration Rate 15.9 mL/min (90-130); Glucose 149 mg/dL (65-115); Lipase 63 U/L (13-60); Osmolality Calculated 331 mOsm/kg (285-295); Potassium 4.5 mmol/L (3.5-5.1); Sodium 146 mmol/L (136-145); Total Bilirubin 0.6 mg/dL (0.15-1.2); Total Protein 9.7 g/dL (6.6-8.7)
[2023-07-27 12:56] LABS: Blood Urea Nitrogen 86 mg/dL (8-23)
--- NOTE | 2023-07-27 13:23 | CTR_ITS ---
PROCEDURE INFORMATION: Exam: CT Abdomen And Pelvis Without Contrast Exam date and time: 07/27/2023 1:31 PM Age: 67 years old Clinical indication: Nausea and vomiting; Abdominal pain; Localized; Right lower quadrant (rlq); Prior surgery; Surgery date: 6+ months; Surgery type: Kidney TECHNIQUE: Imaging protocol: Computed tomography of the abdomen and pelvis without contrast. Radiation optimization: All CT scans at this facility use at least one of these dose optimization techniques: automated exposure control; mA and/or kV adjustment per patient size (includes targeted exams where dose is matched to clinical indication); or iterative reconstruction. COMPARISON: CT chest abdpel w/*[id number] 07/22/2023 2:53 PM RADIATION DOSE METRICS: Total DLP (mGy-cm): 557.23 FINDINGS: Liver: Normal. No mass. Gallbladder and bile ducts: Normal. No calcified stones. No ductal dilation. Pancreas: Normal. No ductal dilation. Spleen: Normal. No splenomegaly. Adrenal glands: Normal. No mass. Kidneys and ureters: Left nephrectomy. Stomach and bowel: Stable thickening of the wall of the gastric antrum. The adjacent mild inflammatory stranding has resolved. Appendix: No evidence of appendicitis. Intraperitoneal space: Unremarkable. No free air. No significant fluid collection. Vasculature: Unremarkable. No abdominal aortic aneurysm. Lymph nodes: Unremarkable. No enlarged lymph nodes. Urinary bladder: Unremarkable as visualized. Reproductive: Unremarkable as visualized. Bones/joints: Unremarkable. No acute fracture. Soft tissues: See Stomach and bowel finding. CT/CT abdomen pelvis con [id number] IMPRESSION: 1. No acute findings. 2. Stable thickening of wall gastric antrum. This is likely due gastritis.
[2023-07-27 14:16] LABS: Reflex Lactate Order REFLEX LACTIC ORDERD
[2023-07-27] MEDS: diphenhydrAMINE 50 mg/mL SDV 1mL 25 MG IVP (14:23)
[2023-07-27] MEDS: sodium chloride 0.9% 1,000 ML 999 ML IV ×3 (14:23→18:29)
[2023-07-27] MEDS: ondansetron 2 mg/ML SDV 2 mL 4 MG IVP (14:24)
[2023-07-27] MEDS: morphine 4 mg/mL SDV 1 mL 2 MG IVP (14:24)
--- NOTE | 2023-07-27 15:26 | P.HP_ITS ---
Providers/Chief Complaint 2 Primary Care Provider: Jodie Marshall MD Chief Complaint: N/V, not eating, abd pain History of Present Illness Ezequiel Davis is a 67 year old male with no significant past medical history other than renal cell carcinoma post left nephrectomy, gastritis presented to the ER because of unable to maintain oral intake for last 3 weeks because of nausea and vomiting, epigastric fullness leading to decreased urine output and difficulty in passing urine. Also gives history of weight loss of up to 50 pounds in the last 3 weeks as per the patient. Denies any chest pain, diarrhea, headache, dizziness, weakness in arms or limbs, swelling in his lower limbs. In the ER patient was found to have electrolyte abnormalities along with acute kidney injury Review of Systems 2 General: Reports: 10 or more systems reviewed and unremarkable except in HPI and below Const: Denies: fever(s), chills, body aches, change in appetite, change in weight, malaise, night sweats, diaphoresis, change in sleep pattern, daytime sleepiness or snoring Eyes: Denies: change in vision, blurry vision, photophobia, eye discomfort or eye discharge ENMT: Denies: throat pain, enlarged tonsils, hoarseness, mouth pain, oral sores, dry mouth, tinnitus, nasal congestion or post nasal drip Card: Denies: chest pain, palpitations, irregular heart rhythm, edema, swelling of feet/ankles, lightheadedness, syncope, pre-syncope, dyspnea on exertion, orthopnea, leg pain with exertion or acrocyanosis Resp: Denies: dyspnea, productive cough, non-productive cough, wheezing, stridor, pain on inspiration, change in phlegm color, hemoptysis or chest congestion GI: Denies: abdominal pain, nausea, vomiting, hematemesis, coffee ground emesis, dysphagia, heartburn, diarrhea, constipation, bloating, GI cramping, change in bowel habits, pain on defecation, hematochezia or melena : Denies: flank pain, difficulty urinating, dysuria, urinary frequency, urinary urgency, urinary hesitancy, urinary dribbling, difficulty starting urination, change in urine stream, nocturia or hematuria Musc: Denies: neck pain, back pain, extremity pain, joint pain, joint swelling, joint redness, joint stiffness or limited range of motion Neuro: Denies: headache(s), numbness in extremities, weakness in extremities, sensory changes, lack of coordination, difficulty walking, frequent falls, dizziness, vertigo, confusion, Slurred speech present, difficulty communicating thoughts or seizure-like activity Psych: Denies: anxiety, depression, mood swings, panic attacks, hopelessness or irritability Endo: Denies: polyuria, polydipsia, tired all the time, cold intolerance, excessive sweating, flushing or heat intolerance Efe/Lymph: Denies: easy bruising or easy bleeding All/Imm: Denies: tongue swelling, facial swelling or acute wheezing Medications/Allergies Home Medications Medication Instructions Recorded Confirmed Last Taken Type sucralfate 1 gram tablet (Carafate) 1 g PO TID 30 days #90 tabs 07/17/23 07/27/23 07/27/23 Rx pantoprazole 40 mg tablet,delayed 40 mg PO BID #60 tabs 07/21/23 07/27/23 07/27/23 Rx release (Protonix) ondansetron 4 mg disintegrating 4 mg PO QID PRN nausea and 07/25/23 07/27/23 07/27/23 Rx tablet vomiting #30 tabs sucralfate 100 mg/mL oral 10 ml PO BID 30 days #840 mL 07/25/23 07/27/23 07/27/23 Rx suspension Allergies Allergy/AdvReac Type Severity Reaction Status Date / Time fentanyl Allergy ALGY-Rash Verified 07/25/23 13:18 morphine Allergy ALGY-Hives Verified 07/25/23 13:18 oxycodone Allergy unknown Verified 07/25/23 13:18 PFSH Acute 2 PFSH: Medical History (Updated 07/27/23 @ 17:26 by Darren Palacios MD) Single kidney Broken fibula Broken tibia DJD (degenerative joint disease) H/O renal cell cancer Surgical History (Updated 07/27/23 @ 15:32 by Darren Palacios MD) Hx of colonoscopy 2005 [place] H/O laceration repair (05/22/20) H/O hand surgery S/p nephrectomy Left-sided nephrectomy H/O skin graft Family History Father Cancer stomach Social History (Reviewed 07/27/23 @ 12:09 by GLORIA Ugalde Smoking and tobacco/nicotine status: current every day tobacco/nicotine user cigarettes Alcohol intake: never Vitals/I&O/Wt Last Vital Signs Temp 97.6 F 07/27/23 11:43 Pulse 107 H 07/27/23 12:29 Resp 18 07/27/23 12:29 BP 124/83 07/27/23 11:43 Pulse Ox 97 07/27/23 12:29 O2 Del Method Room Air 07/27/23 12:29 Weight last 48 hrs Weight 83.007 kg Physical Exam 2 Narrative: General: No acute distress, AO x3, ill-appearing, dehydrated HEENT: PERRLA, pupils bilaterally equal and reactive Chest: Normal vesicular breath sounds, no added sounds, equal good air entry bilaterally CVS: S1-S2 regular, no murmurs, no tachycardia, no gallops, no rubs Abdomen: Soft, nontender, no organomegaly, bowel sounds present Neuro: No focal deficits, no facial deformity, AO x3, power 5/5 in all limbs Data 07/27/23 12:24 07/27/23 12:24 Micro: Microbiology 07/27/23 14:04 Blood Culture - Preliminary Blood SPECIMEN COLLECTED A&P Assessment and plan (1) Acute renal failure: RUBI on CKD. Baseline creatinine seems to be running from 1.3-1.4. Single kidney. Left nephrectomy for RCC. Most likely in setting of dehydration from poor oral intake. D5 NS at 75 cc/h. CT abdomen pelvis negative for obstructive nephropathy Check urinalysis, urine lites, urine creatinine, urine eosinophils. Monitor BMP daily. Acute renal failure along with hypernatremia, uremia, high anion gap metabolic acidosis (2) Hypernatremia: Fluid as above. Repeat BMP in AM. (3) Nausea and vomiting: In setting of severe gastritis. Appreciate CT abdomen pelvis which showed persistent thickening of gastric antrum. No history of malignancy. Patient would benefit from endoscopy once clinically stable to rule out malignancy. Check H. pylori. Protonix 40 mg IV twice daily. Carafate before meals and at bedtime as home dose. Clear liquid diet. (4) Dehydration: Due to poor oral intake from nausea and vomiting. Evident due to hemoconcentration leading to hemoglobin of 20, hypernatremia, uremia, RUBI along with lactic acidosis, hypercalcemia, elevated protein up to 10. Will monitor all of these numbers with IV hydration. (5) Elevated lactic acid level: (6) High anion gap metabolic acidosis: (7) Single kidney: Plan CODE STATUS: Discussed in detail with the patient. Full code. Clear liquid diet. Renal nondialysis diet. Protonix will be sufficient for PUD prophylaxis Heparin 5000 every 12 hourly for DVT prophylaxis Attestations 2 Medical Necessity Statement*: Admission for more than 2 midnights for management of renal failure leading to hypernatremia secondary to dehydration from poor oral intake in setting of gastritis Diagnoses Acute renal failure N17.9 Hypernatremia E87.0 Nausea and vomiting R11.2 Dehydration E86.0 Elevated lactic acid level R79.89 High anion gap metabolic acidosis E87.29 Single kidney Z90.5
[2023-07-27 16:01] LABS: Lactic Acid level (Lactate) 2.7 mmol/L (0.5-2.2)
[2023-07-27] MEDS: dextrose 5%-sod chloride 0.9% 1,000 ML 75 ML IV (16:15)
[2023-07-27 16:51] LABS: Amphetamines Screen Urine Positive (Negative); Barbiturates Screen Urine Negative (Negative); Benzodiazepines Screen Urine Negative (Negative); Cocaine Screen Urine Negative (Negative); Opiate Screen Urine Positive (Negative); PCP Screen Urine Negative (Negative); THC Screen Urine Negative (Negative)
[2023-07-27 17:36] LABS: Potassium, Radom Urine 79 mmol/L; Urine Random Sodium 40 mmol/L
[2023-07-27 17:42] LABS: Urine Random Chloride < 10 mmol/L
[2023-07-27] MEDS: pantoprazole 40 mg SDV 80 MG IVP (17:46)
[2023-07-27] MEDS: heparin 5,000 unit/mL INJ 1 mL 5000 UNIT SUBCUT (17:47)
[2023-07-27 19:12] LABS: Add Urine Microscopic? YES; Bilirubin Urine 1+ (Negative); Blood Urine Neg (Negative); Glucose Urine UA Norm (Normal); Ketones Urine 1+ (Negative); Leukocyte Esterase Urine Negative (Negative); Nitrate Urine Negative (Negative); Protein Urine Trace (Negative); Specific Gravity, Urine 1.025 (1.005-1.030); Urine Appearance SL Hazy (CLEAR); Urine Color Yellow (Yellow); Urobilinogen Urine Norm (Negative); pH Urine 5 (5-7)
[2023-07-27 19:19] LABS: Iron 91 ug/dL (59-158); Percent Saturation 28.7 % (20-50); Thyroid Stimulating Hormone 1.33 uIU/mL (0.27-4.20); Total Iron Binding Capacity 317 mcg/dl; Unsaturated Iron Binding 226 ug/dL (112-347); Vitamin B12 1249 pg/mL (232-1245)
[2023-07-27 19:23] LABS: Urine Creatinine 282 mg/dL (39-259)
[2023-07-27 19:23] LABS: H. Pylori IgG Antibody Negative (Negative)
[2023-07-27 19:24] LABS: Bacteria Urine 2+ /hpf; Mucus Urine 1+ /hpf; Squamous Epithelial Cell Urine 0-4 /hpf (0-5); WBC Urine RARE /hpf (0-5)
[2023-07-27 19:25] LABS: Add Urine Culture? No
[2023-07-28] VITALS (8 sets, daily range): BP systolic 130–142; BP diastolic 87–95; PULSE 80–99; RESP 15–18; TEMP 36.3–37.1; O2SAT 91–97; BMI 23.7
[2023-07-28] MEDS: heparin 5,000 unit/mL INJ 1 mL 5000 UNIT SUBCUT ×2 (04:41→18:04)
[2023-07-28] MEDS: dextrose 5%-sod chloride 0.9% 1,000 ML 75 ML IV (04:42)
[2023-07-28] MEDS: pantoprazole 40 mg SDV IVP ×2 (04:42→18:03)
[2023-07-28 05:15] LABS: Basophils # 0.1 10^3/uL (0.0-0.1); Basophils % 0.4 %; Eosinophils # 0.1 10^3/uL (0.0-0.8); Eosinophils % 0.5 %; Hematocrit 52.7 % (37-53); Lymphocytes # 1.6 10^3/uL (0.8-4.8); Lymphocytes % 10.6 %; Mean Corpuscular Hemoglobin 31.4 pg (27-33); Mean Corpuscular Volume 95.1 fl (82-101); Mean Platelet Volume 12.1 fL (7.4-10.4); Monocytes # 0.9 10^3/uL (0.2-0.9); Neutrophils # 12.07 10^3/uL (1.8-7.7); Nucleated Red Blood Cells % 0 %; Platelet Count 383 10^3/cmm (157-399); Red Blood Count 5.54 10^6/uL (3.85-5.65); Red Cell Distribution Width 12.8 % (12.1-15.1); White Blood Count 14.74 10^3/uL (3.29-11.43)
[2023-07-28 05:33] LABS: Chol HDL Ratio 3.37 mg/dL (1.0-5.00); Cholesterol 192 mg/dL (0-200); HDL Cholesterol 57 mg/dL (60-100); LDL Cholesterol Calculated 114 mg/dL (50-129); Triglycerides 105 mg/dL (0-150)
[2023-07-28 05:34] LABS: Alanine Aminotransferase 9 U/L (0-41); Albumin Level 4.2 g/dL (3.5-5.2); Alkaline Phosphatase 140 U/L (40-130); Blood Urea Nitrogen 78 mg/dL (8-23); Calcium 9.4 mg/dL (8.5-10.5); Carbon Dioxide 27 mmol/L (22-29); Chloride 105 mmol/L (98-107); Creatinine Clr Calc Pharmacy 28.7853; Globulin 3.6 g/dL (1.3-4.6); Glomerular Filtration Rate 22.6 mL/min (90-130); Glucose 111 mg/dL (65-115); Magnesium 3.1 mg/dL (1.7-2.3); Osmolality Calculated 330 mOsm/kg (285-295); Phosphorus 4.2 mg/dL (2.5-4.5); Sodium 148 mmol/L (136-145); Total Bilirubin 0.6 mg/dL (0.15-1.2); Total Protein 7.8 g/dL (6.6-8.7)
[2023-07-28 05:40] LABS: Estmated Average Glucose 105; Hemoglobin A1C 5.3 % (4.0-6.0)
[2023-07-28 05:44] LABS: Anion Gap 19.5 (5-19); Aspartate Amino Transferase 11 U/L (0-40); Potassium 3.5 mmol/L (3.5-5.1)
[2023-07-28 05:53] LABS: Folate Level 9.5 ng/mL (4.5-32.2)
[2023-07-28] MEDS: ondansetron 2 mg/ML SDV 2 mL 4 MG IVP ×2 (06:12→18:12)
[2023-07-28] MEDS: dextrose 5%-sod chloride 0.45% 1,000 ML 75 ML IV (09:03)
--- NOTE | 2023-07-28 09:04 | PC.CHAP ---
Pastoral Care Encounter/Spiritual Assessment Type of Contact [] Declined safe deposit clerk visit [] Patient/Family/Request visit [] Outpatient visit [] Follow-up visit [] Physician referral [] Code/Alert [x] Routine visit [] Staff referral [] Actively dying [] Patient sleeping [] Family support [] [] Out of room [] Palliative care [] [] Receiving care in room [] Pre-surgical visit [] Trauma [] Long length of stay [] ICU visit [] Other: Relational/Emotional Strength [x] Patient feels connected with others/family/visitors/staff [] Distress [] Loneliness/isolation [] Abandonment Spirituality of Patient [] Person of Trupti [] Attends Christian of their [place]i [x] Believes in Prayer [] Reads Bible or Episcopal materials [] There are Spiritual issues to be addressed Outbound Supervisor Interventions [x] Prayer [x] Active listening [x] Non-anxious presence [x] Spiritual/emotional support [] Crisis/trauma care [] Spiritual counseling [] Bereavement support [] Provided bereavement packet [] Provided Bible/devotional materials [] Provided toy/stuffed animal, coloring book to patient or family member [] Provided Communion [] Anointing/[place] [] Salvation [x] Completed spiritual assessment [] Other: Impact on Illness or Injury [] Angry [] Fearful [] Anxious [] Often cries [] Exhaustion [] Unable to work [] Unable to attend latter day [] Unable to walk/stand [] Unable to read [] Unable to drive [] Unable to eat/drink [] Unable to sleep [] Unable to be with family [] Patient intubated [] Other: Summary Time spent with patient 5 min
[2023-07-28] MEDS: sucralfate 1 gm/10 mL Oral Liq UDC PO ×3 (11:40→20:16)
--- NOTE | 2023-07-28 12:15 | P.PN_ITS ---
Subjective 2 Subjective: Patient continues to have nausea and episodes of vomiting but he states he is feeling hungry and wants to continue with a trial of liquid diet. Overall he states he is feeling better. Denies any diarrhea, headache, chest pain. Vitals/I&O/Wt Last Vital Signs Temp 98.6 F 07/28/23 12:00 Pulse 80 07/28/23 12:00 Resp 15 07/28/23 12:00 BP 130/91 07/28/23 12:00 Pulse Ox 91 07/28/23 12:00 O2 Del Method Room Air 07/28/23 12:00 07/27/23 07/28/23 07/28/23 22:59 06:59 14:59 Intake Total 3600 / 3600 2613.75 / 6213.75 453.75 / 453.75 Output Total 300 / 300 2600 / 2900 Balance 3300 / 3300 13.75 / 3313.75 453.75 / 453.75 Weight last 48 hrs Weight 81.647 kg Weight 83.007 kg Physical Exam 2 Narrative: General: No acute distress, AO x3, ill-appearing, dehydrated HEENT: PERRLA, pupils bilaterally equal and reactive Chest: Normal vesicular breath sounds, no added sounds, equal good air entry bilaterally CVS: S1-S2 regular, no murmurs, no tachycardia, no gallops, no rubs Abdomen: Soft, nontender, no organomegaly, bowel sounds present Neuro: No focal deficits, no facial deformity, AO x3, power 5/5 in all limbs Urinary Catheter Management: Mcgraw: Cath Placed During This Visit: yes Reason for Continuing Indwelling Catheter: Other Urinary Catheter Date of Insertion: 07/27/23 Urinary Catheter Time of Insertion: 16:20 Data 07/28/23 04:15 07/28/23 04:15 Micro: Microbiology 07/27/23 16:18 Bacterial Antigens - Final Urine Kidney 07/27/23 15:24 Blood Culture - Preliminary Blood SPECIMEN COLLECTED 07/27/23 14:04 Blood Culture - Preliminary Blood SPECIMEN COLLECTED A&P Assessment and plan (1) Acute renal failure: RUBI on CKD. Baseline creatinine seems to be running from 1.3-1.4. Single kidney. Left nephrectomy for RCC. Most likely in setting of dehydration from poor oral intake. Hypernatremia slightly worsened today. Switch to D5 half NS at 75 cc/h. CT abdomen pelvis negative for obstructive nephropathy Appreciate urinalysis, urine lites, urine creatinine, urine eosinophils. Fena 0.3% consistent with prerenal Monitor BMP daily. Acute renal failure along with hypernatremia, uremia, high anion gap metabolic acidosis (2) Hypernatremia: Fluid as above. Repeat BMP in evening. May need to continue monitor sodium levels. (3) Nausea and vomiting: In setting of severe gastritis along with amphetamines found in urine drug screen. Appreciate CT abdomen pelvis which showed persistent thickening of gastric antrum. No history of malignancy. Patient would benefit from endoscopy once clinically stable to rule out malignancy. H. pylori negative. Protonix 40 mg IV twice daily. Carafate before meals and at bedtime as home dose. Continue with clear liquid diet. Counseled patient about multiple small meals. (4) Dehydration: Due to poor oral intake from nausea and vomiting. Evident due to hemoconcentration leading to hemoglobin of 20, hypernatremia, uremia, RUBI along with lactic acidosis, hypercalcemia, elevated protein up to 10. Will monitor all of these numbers with IV hydration. (5) Elevated lactic acid level: Repeat lactate today. (6) High anion gap metabolic acidosis: Resolved. (7) Single kidney: (8) Amphetamine abuse, episodic: Patient states he uses amphetamines very occasionally. Usually smokes. Usually smokes once a month. Check HIV, alcohol level on admission (9) Gastritis: Qualifiers: Chronicity: acute Gastritis bleeding: without bleeding Gastritis type: unspecified gastritis Qualified Code(s): K29.00 - Acute gastritis without bleeding Plan CODE STATUS: Discussed in detail with the patient. Full code. Clear liquid diet. Renal nondialysis diet. Protonix will be sufficient for PUD prophylaxis Heparin 5000 every 12 hourly for DVT prophylaxis Attestations 2 Medical Necessity Statement*: Requires further hospitalization for management of RUBI on CKD along with uremia, hypernatremia and gastritis leading to poor oral intake persistent nausea and vomiting Diagnoses Acute renal failure N17.9 Hypernatremia E87.0 Nausea and vomiting R11.2 Dehydration E86.0 Elevated lactic acid level R79.89 High anion gap metabolic acidosis E87.29 Single kidney Z90.5 Amphetamine abuse, episodic F15.10 Gastritis K29.00 Chronicity: acute Gastritis bleeding: without bleeding Gastritis type: unspecified gastritis
[2023-07-28 13:32] LABS: Alcohol Level < 10 mg/dL (0-10)
[2023-07-28 13:39] LABS: HIV 1 & 2 Antibody Non-Reactive (Non-Reactiv); HIV 1 & 2 Antigen Non-Reactive (Non-Reactiv)
--- NOTE | 2023-07-28 14:05 | PC.SOCIAL ---
IMM Update pg 2 of IMM updated and reviewed w/ patient. Copy provided and copy dated, initialed and placed in chart.
[2023-07-28 15:16] LABS: Eosinophil Urine No Eosinophils Seen
[2023-07-28 18:06] LABS: Anion Gap 15.1 (5-19); Blood Urea Nitrogen 66 mg/dL (8-23); Calcium 9.3 mg/dL (8.5-10.5); Carbon Dioxide 31 mmol/L (22-29); Chloride 109 mmol/L (98-107); Creatinine Clr Calc Pharmacy 32.2395; Glomerular Filtration Rate 25.8 mL/min (90-130); Glucose 102 mg/dL (65-115); Osmolality Calculated 331 mOsm/kg (285-295); Potassium 4.1 mmol/L (3.5-5.1); Sodium 151 mmol/L (136-145)
[2023-07-28] MEDS: dextrose 5% 1,000 ML 100 ML IV (22:07)
[2023-07-29] VITALS (9 sets, daily range): BP systolic 124–150; BP diastolic 71–95; PULSE 74–100; RESP 17–18; TEMP 36.6–36.8; O2SAT 97–98
[2023-07-29 05:12] LABS: Basophils # 0.1 10^3/uL (0.0-0.1); Basophils % 0.5 %; Eosinophils # 0.1 10^3/uL (0.0-0.8); Eosinophils % 1.2 %; Lymphocytes # 1.4 10^3/uL (0.8-4.8); Lymphocytes % 14.6 %; Mean Corpuscular HGB Conc 31.9 g/dL (30-55); Mean Corpuscular Hemoglobin 31.1 pg (27-33); Mean Corpuscular Volume 97.4 fl (82-101); Mean Platelet Volume 11.8 fL (7.4-10.4); Monocytes # 0.7 10^3/uL (0.2-0.9); Monocytes % 7.2 %; Neutrophils # 7.38 10^3/uL (1.8-7.7); Neutrophils % 76.2 %; Nucleated Red Blood Cells % 0 %; Platelet Count 334 10^3/cmm (157-399); Red Blood Count 5.44 10^6/uL (3.85-5.65); Red Cell Distribution Width 12.7 % (12.1-15.1)
[2023-07-29 05:51] LABS: Alanine Aminotransferase 10 U/L (0-41); Albumin Level 4.2 g/dL (3.5-5.2); Alkaline Phosphatase 132 U/L (40-130); Anion Gap 14.8 (5-19); Aspartate Amino Transferase 12 U/L (0-40); Blood Urea Nitrogen 56 mg/dL (8-23); Calcium 9.3 mg/dL (8.5-10.5); Carbon Dioxide 30 mmol/L (22-29); Chloride 111 mmol/L (98-107); Creatinine Clr Calc Pharmacy 36.6358; Globulin 3.2 g/dL (1.3-4.6); Glomerular Filtration Rate 29.9 mL/min (90-130); Glucose 108 mg/dL (65-115); Osmolality Calculated 330 mOsm/kg (285-295); Potassium 3.8 mmol/L (3.5-5.1); Sodium 152 mmol/L (136-145); Total Bilirubin 0.4 mg/dL (0.15-1.2); Total Protein 7.4 g/dL (6.6-8.7)
[2023-07-29] MEDS: pantoprazole 40 mg SDV IVP ×2 (06:05→17:59)
[2023-07-29] MEDS: sucralfate 1 gm/10 mL Oral Liq UDC PO ×4 (06:06→20:38)
[2023-07-29] MEDS: heparin 5,000 unit/mL INJ 1 mL 5000 UNIT SUBCUT ×2 (06:06→17:59)
--- NOTE | 2023-07-29 08:09 | PC.NURSE ---
Patient is asking for sprite and other soda this morning. Stephens tub was emptied from emesis which contained dark liquid. Two empty coke cans were thrown away as well. This nurse gave some ice water to patient.
[2023-07-29] MEDS: dextrose 5% 1,000 ML 100 ML IV ×2 (08:39→17:58)
--- NOTE | 2023-07-29 16:08 | P.PN_ITS ---
Subjective 2 Subjective: No acute events overnight. Patient continues to have episodes of nausea and vomiting. As per the nurse he is drinking a lot of shoulder. Had around 2 to 3, 12 packs of soda overnight. Patient getting agitated when told to hold off on any further soda. Patient himself denies any nausea. States he is feeling better. Vitals/I&O/Wt Last Vital Signs Temp 98.2 F 07/29/23 12:00 Pulse 90 07/29/23 12:00 Resp 17 07/29/23 12:00 BP 132/91 07/29/23 12:00 Pulse Ox 98 07/29/23 12:00 O2 Del Method Room Air 07/29/23 12:00 07/29/23 07/29/23 07/29/23 06:59 14:59 22:59 Intake Total 3356 / 3356 Output Total 150 / 750 2450 / 2450 Balance -150 / 903.75 906 / 906 Weight last 48 hrs Weight 87.345 kg Weight 81.647 kg Physical Exam 2 Narrative: General: No acute distress, AO x3, ill-appearing, dehydrated HEENT: PERRLA, pupils bilaterally equal and reactive Chest: Normal vesicular breath sounds, no added sounds, equal good air entry bilaterally CVS: S1-S2 regular, no murmurs, no tachycardia, no gallops, no rubs Abdomen: Soft, nontender, no organomegaly, bowel sounds present Neuro: No focal deficits, no facial deformity, AO x3, power 5/5 in all limbs Urinary Catheter Management: Mcgraw: Cath Placed During This Visit: yes Reason for Continuing Indwelling Catheter: Acute Urinary Retention or Obstruction Urinary Catheter Date of Insertion: 07/27/23 Urinary Catheter Time of Insertion: 16:20 Data 07/29/23 04:36 07/29/23 04:36 Micro: Microbiology 07/27/23 15:24 Blood Culture - Preliminary Blood NEGATIVE TO DATE 07/27/23 14:04 Blood Culture - Preliminary Blood NEGATIVE TO DATE A&P Assessment and plan (1) Acute renal failure: RUBI on CKD. Baseline creatinine seems to be running from 1.3-1.4. Single kidney. Left nephrectomy for RCC. Most likely in setting of dehydration from poor oral intake. Slowly improving. Creatinine down to 2.2, BUN improving to 56. Hypernatremia continues to worsen most likely in setting of excessive soda intake. Switch fluid to D5W at 75 cc/h. Monitor BMP every 12 hours. Restrict soda intake. Discussed in detail with the patient and he is agreeable. CT abdomen pelvis negative for obstructive nephropathy Appreciate urinalysis, urine lites, urine creatinine, urine eosinophils. Fena 0.3% consistent with prerenal Monitor BMP daily. Acute renal failure along with hypernatremia, uremia, high anion gap metabolic acidosis (2) Hypernatremia: Fluid as above. Repeat BMP in evening. May need to continue monitor sodium levels. (3) Nausea and vomiting: In setting of severe gastritis along with amphetamines found in urine drug screen. Appreciate CT abdomen pelvis which showed persistent thickening of gastric antrum. No history of malignancy. Patient would benefit from endoscopy once clinically stable to rule out malignancy. H. pylori negative. Protonix 40 mg IV twice daily. Carafate before meals and at bedtime as home dose. Continue with clear liquid diet. Counseled patient about multiple small meals. (4) Dehydration: Due to poor oral intake from nausea and vomiting. Evident due to hemoconcentration leading to hemoglobin of 20, hypernatremia, uremia, RUBI along with lactic acidosis, hypercalcemia, elevated protein up to 10. Currently improving slowly. Leukocytosis has resolved. Hemoglobin down to 16.9. (5) Elevated lactic acid level: Repeat lactate today. (6) High anion gap metabolic acidosis: Resolved. (7) Single kidney: (8) Amphetamine abuse, episodic: Patient states he uses amphetamines very occasionally. Usually smokes. Usually smokes once a month. Check HIV, alcohol level on admission (9) Gastritis: Qualifiers: Chronicity: acute Gastritis bleeding: without bleeding Gastritis type: unspecified gastritis Qualified Code(s): K29.00 - Acute gastritis without bleeding Plan CODE STATUS: Discussed in detail with the patient. Full code. Clear liquid diet. Renal nondialysis diet. Protonix will be sufficient for PUD prophylaxis Heparin 5000 every 12 hourly for DVT prophylaxis Attestations 2 Medical Necessity Statement*: Requires further hospitalization for management of nausea and vomiting in setting of extreme gastritis, RUBI in setting of poor oral intake, hypernatremia Diagnoses Acute renal failure N17.9 Hypernatremia E87.0 Nausea and vomiting R11.2 Dehydration E86.0 Elevated lactic acid level R79.89 High anion gap metabolic acidosis E87.29 Single kidney Z90.5 Amphetamine abuse, episodic F15.10 Gastritis K29.00 Chronicity: acute Gastritis bleeding: without bleeding Gastritis type: unspecified gastritis
[2023-07-29 20:09] LABS: Anion Gap 14.3 (5-19); Blood Urea Nitrogen 41 mg/dL (8-23); Calcium 9.1 mg/dL (8.5-10.5); Carbon Dioxide 28 mmol/L (22-29); Chloride 111 mmol/L (98-107); Creatinine Clr Calc Pharmacy 46.0433; Glomerular Filtration Rate 37.7 mL/min (90-130); Glucose 97 mg/dL (65-115); Osmolality Calculated 320 mOsm/kg (285-295); Potassium 3.3 mmol/L (3.5-5.1); Sodium 150 mmol/L (136-145)
[2023-07-29] MEDS: guaiFENesin-dextromethorphan UDC 10 mL 5 ML PO (21:59)
[2023-07-30] VITALS: BP 146/97; PULSE 89; RESP 17; TEMP 36.8; O2SAT 95
[2023-07-30 03:48] LABS: Basophils # 0.1 10^3/uL (0.0-0.1); Basophils % 0.5 %; Eosinophils # 0.2 10^3/uL (0.0-0.8); Eosinophils % 1.4 %; Hematocrit 51.4 % (37-53); Lymphocytes # 1.9 10^3/uL (0.8-4.8); Lymphocytes % 12.8 %; Mean Corpuscular HGB Conc 32.9 g/dL (30-55); Mean Corpuscular Hemoglobin 31.4 pg (27-33); Mean Corpuscular Volume 95.5 fl (82-101); Mean Platelet Volume 12.5 fL (7.4-10.4); Monocytes # 0.9 10^3/uL (0.2-0.9); Monocytes % 5.7 %; Neutrophils # 12.05 10^3/uL (1.8-7.7); Neutrophils % 79.2 %; Nucleated Red Blood Cells % 0 %; Platelet Count 312 10^3/cmm (157-399); Red Blood Count 5.38 10^6/uL (3.85-5.65); Red Cell Distribution Width 12.6 % (12.1-15.1)
[2023-07-30 04:00] VITALS: BP 135/84; PULSE 82; RESP 18; TEMP 36.4; O2SAT 94
[2023-07-30 04:12] LABS: Alanine Aminotransferase 13 U/L (0-41); Albumin Level 4.1 g/dL (3.5-5.2); Alkaline Phosphatase 134 U/L (40-130); Anion Gap 16.4 (5-19); Aspartate Amino Transferase 16 U/L (0-40); Blood Urea Nitrogen 37 mg/dL (8-23); Calcium 9.2 mg/dL (8.5-10.5); Carbon Dioxide 27 mmol/L (22-29); Chloride 109 mmol/L (98-107); Creatinine Clr Calc Pharmacy 48.7518; Globulin 3.3 g/dL (1.3-4.6); Glomerular Filtration Rate 40.3 mL/min (90-130); Glucose 115 mg/dL (65-115); Osmolality Calculated 318 mOsm/kg (285-295); Potassium 3.4 mmol/L (3.5-5.1); Sodium 149 mmol/L (136-145); Total Bilirubin 0.5 mg/dL (0.15-1.2); Total Protein 7.4 g/dL (6.6-8.7)
[2023-07-30] MEDS: dextrose 5% 1,000 ML 100 ML IV (04:28)
[2023-07-30] MEDS: ondansetron 2 mg/ML SDV 2 mL 4 MG IVP (04:55)
[2023-07-30] MEDS: pantoprazole 40 mg SDV IVP (06:06)
[2023-07-30] MEDS: sucralfate 1 gm/10 mL Oral Liq UDC PO ×2 (06:07→11:30)
[2023-07-30] MEDS: heparin 5,000 unit/mL INJ 1 mL 5000 UNIT SUBCUT (06:07)
[2023-07-30 06:42] VITALS: PULSE 75
[2023-07-30 07:53] VITALS: BP 130/87; PULSE 97; RESP 19; TEMP 36.3; O2SAT 92
--- NOTE | 2023-07-30 11:25 | P.CONIM_ITS ---
Providers/Reason For Consult 2 Consulting Physician/Specialty*: General surgery Reason for Consult*: Gastritis Attending Physician: Darren Palacios MD Primary Care Provider: Jodie Marshall MD History of Present Illness History of Present Illness Ezequiel Davis is a 67 year old male who I have previously seen in the clinic with acute gastritis and was planned for upper endoscopy earlier this week, due to patient not feeling well he decided to cancel his endoscopy and later presented to the emergency department with significant vomit and laboratory workup showing acute kidney injury. Patient has been treated for these and kidney injuries steadily improving but I have been consulted for evaluation for possible endoscopy. Per patient report he continues to throw everything that he eats. Review of Systems 2 General: Reports: 10 or more systems reviewed and unremarkable except in HPI and below Medications/Allergies Home Medications Medication Instructions Recorded Confirmed Last Taken Type sucralfate 1 gram tablet (Carafate) 1 g PO TID 30 days #90 tabs 07/17/23 07/27/23 07/27/23 Rx pantoprazole 40 mg tablet,delayed 40 mg PO BID #60 tabs 07/21/23 07/27/23 07/27/23 Rx release (Protonix) ondansetron 4 mg disintegrating 4 mg PO QID PRN nausea and 07/25/23 07/27/23 07/27/23 Rx tablet vomiting #30 tabs sucralfate 100 mg/mL oral 10 ml PO BID 30 days #840 mL 07/25/23 07/27/23 07/27/23 Rx suspension Allergies Allergy/AdvReac Type Severity Reaction Status Date / Time fentanyl Allergy ALGY-Rash Verified 07/25/23 13:18 morphine Allergy ALGY-Hives Verified 07/25/23 13:18 oxycodone Allergy unknown Verified 07/25/23 13:18 Current Medications Generic Name Dose Route Start Last Admin Trade Name Freq PRN Reason Stop Dose Admin Guaifenesin/Dextromethorphan 5 ml 07/29/23 21:37 07/29/23 21:59 Guaifenesin-Dextromethorphan Udc 10 Ml PO 5 ml Q4H PRN Administration COUGH Heparin Sodium (Porcine) 5,000 unit 07/27/23 17:16 07/30/23 06:07 Heparin 5,000 Unit/Ml Inj 1 Ml SUBCUT 5,000 unit Q12H ALLEN Administration Dextrose 1,000 mls @ 100 mls/hr 07/28/23 21:45 07/30/23 04:28 D5w IV 100 mls/hr .Q10H ALLEN Administration Ondansetron HCl 4 mg 07/27/23 17:16 07/30/23 04:55 Ondansetron 2 Mg/Ml Sdv 2 Ml IVP 4 mg Q8H PRN Administration vomiting, or N/V if npo Pantoprazole Sodium 40 mg 07/27/23 17:16 07/30/23 06:06 Pantoprazole 40 Mg Sdv IVP 40 mg Q12H ALLEN Administration Sucralfate 1 gm 07/28/23 11:00 07/30/23 06:07 Sucralfate 1 Gm/10 Ml Oral Liq Udc PO 1 gm AC&BEDTIME ALLEN Administration PFSH Acute 2 PFSH: Medical History (Updated 07/28/23 @ 12:18 by Darren Palacios MD) Single kidney Broken fibula Broken tibia DJD (degenerative joint disease) H/O renal cell cancer Surgical History (Updated 07/27/23 @ 15:32 by Darren Palacios MD) Hx of colonoscopy 2005 [place] H/O laceration repair (05/22/20) H/O hand surgery S/p nephrectomy Left-sided nephrectomy H/O skin graft Family History Father Cancer stomach Social History Smoking and tobacco/nicotine status: current every day tobacco/nicotine user cigarettes Alcohol intake: never Vitals/I&O/Wt Last Vital Signs Temp 97.3 F L 07/30/23 07:53 Pulse 97 07/30/23 07:53 Resp 19 H 07/30/23 07:53 BP 130/87 07/30/23 07:53 Pulse Ox 92 07/30/23 07:53 O2 Del Method Room Air 07/30/23 07:53 07/29/23 07/30/23 07/30/23 22:59 06:59 14:59 Intake Total 3539.667 / 7255.667 5630 / 94176.667 480 / 480 Output Total 4075 / 8850 6450 / 18796 500 / 500 Balance -535.333 / -1594.333 -820 / -2414.333 -20 / -20 Weight last 48 hrs Weight 196 lb 7 oz Weight 196 lb 7 oz Weight 192 lb 9 oz Physical Exam 2 Narrative: General : Patient is well developed , no acute distress, oriented x3 Head : Normal cephalic, a-traumatic. Nose : Mucous membranes are without erythema. Lungs : Equal chest rise bilaterally, no use of accessory muscles, trachea is midline. CV : Rate and rhythm are normal. Abdomen : Soft, ND, NT, no g/r/m Extremities : No edema. Upper extremities are normal bilaterally. Back : non-tender to palpation, no CVA tenderness. Urinary Catheter Management: Mcgraw: Cath Placed During This Visit: yes Reason for Continuing Indwelling Catheter: Acute Urinary Retention or Obstruction Urinary Catheter Date of Insertion: 07/27/23 Urinary Catheter Time of Insertion: 16:20 Data 07/30/23 02:55 07/30/23 02:55 A&P Assessment and plan (1) Gastritis: Qualifiers: Chronicity: acute Gastritis bleeding: without bleeding Gastritis type: unspecified gastritis Qualified Code(s): K29.00 - Acute gastritis without bleeding (2) Nausea and vomiting: Plan After complete history, physical examination and review of all available clinical data the following is my assessment. Patient will require upper endoscopy for evaluation of distal antral thickening and possible gastritis. Have discussed all the risk and benefits with the patient including the risk of perforation of the esophagus stomach and duodenum requiring surgical intervention and transfer to higher level of care. Patient shows understanding and wishes to proceed. Patient will be made n.p.o. after midnight for endoscopy tomorrow. Coding Level of Care Code 56081 Diagnoses Gastritis K29.00 Chronicity: acute Gastritis bleeding: without bleeding Gastritis type: unspecified gastritis Nausea and vomiting R11.2
[2023-07-30 11:28] VITALS: BP 110/79; PULSE 100; RESP 20; TEMP 36.4; O2SAT 94
[2023-07-30] MEDS: potassium chloride ER 20 mEq Tablet 40 MEQ PO (11:30)
--- NOTE | 2023-07-30 13:52 | P.PN_ITS ---
Subjective 2 Subjective: No acute events overnight. Patient continues to have excessive amount of oral intake with liquid. He is not agreeable or consistent with decreased oral intake or multiple small meals. He has not consumed much soda overnight. Otherwise denies any abdominal pain. Concerned with significant amount of gastritis symptoms. He feels as if there is acid coming up in his feeding tube. Has remained hemodynamically stable and afebrile otherwise. Vitals/I&O/Wt Last Vital Signs Temp 97.5 F L 07/30/23 11:28 Pulse 100 07/30/23 11:28 Resp 20 H 07/30/23 11:28 BP 110/79 07/30/23 11:28 Pulse Ox 94 07/30/23 11:28 O2 Del Method Room Air 07/30/23 11:28 07/29/23 07/30/23 07/30/23 22:59 06:59 14:59 Intake Total 3539.667 / 7255.667 5630 / 69212.667 960 / 960 Output Total 4075 / 8850 6450 / 01297 500 / 500 Balance -535.333 / -1594.333 -820 / -2414.333 460 / 460 Weight last 48 hrs Weight 89.103 kg Weight 89.103 kg Weight 87.345 kg Physical Exam 2 Narrative: General: No acute distress, AO x3, occasional episodes of agitation HEENT: PERRLA, pupils bilaterally equal and reactive Chest: Normal vesicular breath sounds, no added sounds, equal good air entry bilaterally CVS: S1-S2 regular, no murmurs, no tachycardia, no gallops, no rubs Abdomen: Soft, nontender, no organomegaly, bowel sounds present Neuro: No focal deficits, no facial deformity, AO x3, power 5/5 in all limbs Urinary Catheter Management: Mcgraw: Cath Placed During This Visit: yes Reason for Continuing Indwelling Catheter: Acute Urinary Retention or Obstruction Urinary Catheter Date of Insertion: 07/27/23 Urinary Catheter Time of Insertion: 16:20 Data 07/30/23 02:55 07/30/23 02:55 A&P Assessment and plan (1) Acute renal failure: RUBI on CKD. Baseline creatinine seems to be running from 1.3-1.4. Single kidney. Left nephrectomy for RCC. Most likely in setting of dehydration from poor oral intake. Slowly improving. Creatinine down to 2.2, BUN improving to 56. Hypernatremia continues to worsen most likely in setting of excessive soda intake. Switch fluid to D5W at 75 cc/h. Monitor BMP every 12 hours. Restrict soda intake. Discussed in detail with the patient and he is agreeable. CT abdomen pelvis negative for obstructive nephropathy Appreciate urinalysis, urine lites, urine creatinine, urine eosinophils. Fena 0.3% consistent with prerenal Monitor BMP daily. Acute renal failure along with hypernatremia, uremia, high anion gap metabolic acidosis (2) Hypernatremia: Fluid as above. Repeat BMP in evening. May need to continue monitor sodium levels. (3) Nausea and vomiting: In setting of severe gastritis along with amphetamines found in urine drug screen. Appreciate CT abdomen pelvis which showed persistent thickening of gastric antrum. No history of malignancy. Patient would benefit from endoscopy once clinically stable to rule out malignancy. H. pylori negative. Protonix 40 mg IV twice daily. Carafate before meals and at bedtime as home dose. Continue with clear liquid diet. Counseled patient about multiple small meals. (4) Dehydration: Due to poor oral intake from nausea and vomiting. Evident due to hemoconcentration leading to hemoglobin of 20, hypernatremia, uremia, RUBI along with lactic acidosis, hypercalcemia, elevated protein up to 10. Currently improving slowly. Leukocytosis has resolved. Hemoglobin down to 16.9. (5) Elevated lactic acid level: Repeat lactate today. (6) High anion gap metabolic acidosis: Resolved. (7) Single kidney: (8) Amphetamine abuse, episodic: Patient states he uses amphetamines very occasionally. Usually smokes. Usually smokes once a month. Check HIV, alcohol level on admission (9) Gastritis: Qualifiers: Chronicity: acute Gastritis bleeding: without bleeding Gastritis type: unspecified gastritis Qualified Code(s): K29.00 - Acute gastritis without bleeding Plan CODE STATUS: Discussed in detail with the patient. Full code. Clear liquid diet. Renal nondialysis diet. Protonix will be sufficient for PUD prophylaxis Heparin 5000 every 12 hourly for DVT prophylaxis Plan for the day: Patient continues to have significant amount of GERD with concerns of subjective feeling of acid reflux. Not compliant with conservative treatment with decreased clear liquid diet or multiple small meals. Continues to take multiple large amount of water or liquid diet. Now more agreeable with no soda intake. Continue with IV Protonix and Carafate. When consult surgery for possible need of endoscopy for further evaluation and to rule out malignancy. Patient is agreeable. N.p.o. after midnight as possible. Renal functions continue to improve. Creatinine down to 1.7 with BUN of 37. Continue with current IV fluids. Replace 40 mg of oral potassium. Sodium slightly improved down to 149. Continue with fluid as above. Attestations 2 Medical Necessity Statement*: Requires further hospitalization for management of GERD requiring endoscopy while gastric malignancy is ruled out, acute kidney injury and hypernatremia in setting of poor oral intake and dehydration Diagnoses Acute renal failure N17.9 Hypernatremia E87.0 Nausea and vomiting R11.2 Dehydration E86.0 Elevated lactic acid level R79.89 High anion gap metabolic acidosis E87.29 Single kidney Z90.5 Amphetamine abuse, episodic F15.10 Gastritis K29.00 Chronicity: acute Gastritis bleeding: without bleeding Gastritis type: unspecified gastritis
--- NOTE | 2023-07-30 14:24 | PC.NURSE ---
pt leaving ama, paperwork signed, iv removed and olivares removed per pt request, notified
--- OUTSIDE RECORDS SUMMARY | 2023-08-08 12:55 | XMS_ITS | Continuity of Care Document ---
Author Name Unknown Organization [facility] Address [address] 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 Name Role Phone NO REF PHYS, NO REF PHYS Primary Care Physician Unavailable Encounter [employer] Number [id number] Date(s): 04/14/23 - 04/15/23 [facility] [address] [place] [phone] Encounter Diagnosis Tibia/fibula fracture(Discharge Diagnosis) - 04/14/23 Unspecified fracture of shaft of unspecified fibula, initial encounter for closed fracture(Discharge Diagnosis) - 04/14/23 Discharge Disposition: .Discharge to Home (Routine) Attending Physician: Oscar Mendes MD Admitting Physician: Oscar Mendes MD Allergies, Adverse Reactions, Alerts No Known Medication Allergies Assessment and Plan Extracted from: Title:Instructions to Patients Author:Vilma Chamorro Date:04/15/23 [facility] Intramedullary Nailing of Tibial Shaft Fracture Intramedullary (IM) nailing of tibial shaft fracture is a procedure in which a metal john or wire (nail) is placed inside the tibia. The tibia is a bone in the lower leg. The nail holds the broken bone (fracture) in place while it heals. After this procedure, you will not need a cast, and you may be able to put some weight on your leg right away (partial weight-bearing). The bone may take up to 4? 6 months to heal. This procedure is usually done when a large force, such as from a car crash or sports accident, has fractured the tibia. Often, the other bone in the lower leg (fibula) is fractured at the same time. Tell a health care provider about: ? ? Any allergies you have. ? ? All medicines you are taking, including vitamins, herbs, eye drops, creams, and jstn-esf-usgwofe medicines. ? ? Any problems you or family members have had with anesthetic medicines. ? ? Any blood disorders you have. ? ? Any surgeries you have had. ? ? Any medical conditions you have. ? ? Whether you are or may be . What are the risks? Generally, this is a safe procedure. However, problems may occur, including: ? ? Infection. ? ? Allergic reactions to medicines. ? ? Damage to nearby structures, such as nerves or blood vessels. ? ? Blood clots. ? ? Scarring. ? ? Failure of the bone to heal properly (nonunion). ? ? Needing another procedure to remove the IM nail if it causes pain. ? ? Severe swelling and pain in the injured leg (compartment syndrome). What happens before the procedure? Staying hydrated Follow instructions from your health care provider about hydration, which may include: ? ? Up to 2 hours before the procedure ? you may continue to drink clear liquids, such as water, clear fruit juice, black coffee, and plain tea. Eating and drinking restrictions Follow instructions from your health care provider about eating and drinking, which may include: ? ? 8 hours before the procedure ? stop eating heavy meals or foods, such as meat, fried foods, or fatty foods. ? ? 6 hours before the procedure ? stop eating light meals or foods, such as toast or cereal. ? ? 6 hours before the procedure ? stop drinking milk or drinks that contain milk. ? ? 2 hours before the procedure ? stop drinking clear liquids. Medicines Ask your health care provider about: ? ? Changing or stopping your regular medicines. This is especially important if you are taking diabetes medicines or blood thinners. ? ? Taking medicines such as aspirin and ibuprofen. These medicines can thin your blood. Do not take these medicines unless your health care provider tells you to take them. ? ? Taking fkpa-umj-qduazse medicines, vitamins, herbs, and supplements. General instructions ? ? Do not use any products that contain nicotine or tobacco for as long as told before the procedure. These products include cigarettes, e-cigarettes, and chewing tobacco. If you need help quitting, ask your health care provider. ? ? You may have a physical exam. It is important that you tell your health care provider how your injury occurred and if you have other pains or think you may have other injuries. ? ? You may have imaging tests, such as X-rays or a CT scan. ? ? Ask your health care provider: ? ? How your surgery site will be marked. ? ? What steps will be taken to help prevent infection. These steps may include: ? ? Removing hair at the surgery site. ? ? Washing skin with a germ-killing soap. ? ? Receiving antibiotic medicine. ? ? Plan to have responsible adult take you home from the hospital or clinic. ? ? Plan to have a responsible adult care for you for the time you are told after you leave the hospital or clinic. This is important. What happens during the procedure? ? ? An IV will be inserted into one of your veins. ? ? You will be given one or both of the following: ? ? A medicine to help you relax (sedative). ? ? A medicine to make you fall asleep (general anesthetic). ? ? An incision will be made below the knee on the front side of the leg. ? ? Skin and tissue will be moved out of the way with a surgical device. ? ? A metal john may be placed in the canal of the tibia across the fracture to keep the fractured section of bone in place. ? ? An X-ray or a series of X-rays may be done to make sure that the john is in the correct place. ? ? The IM nail will be screwed into place on either side of the fracture to keep the bone in position and allow the bone to heal. ? ? An X-ray will be done to make sure that the IM nail is in the correct place. ? ? Tendons and other tissue will be closed with stitches (sutures) that do not need to be removed. ? ? Your incision will be closed with sutures. ? ? A bandage (dressing) may be placed over your incision. ? ? A removable splint may be placed over the dressing. The procedure may vary among health care providers and hospitals. What happens after the procedure? ? ? Your blood pressure, heart rate, breathing rate, and blood oxygen level will be monitored until you leave the hospital or clinic. ? ? You may continue to receive fluids and medicines through an IV. ? ? You will have some leg pain. You will be given medicines as needed. ? ? You will be encouraged to do deep breathing exercises. ? ? Do not drive until your health care provider says that it is safe. Summary ? ? Intramedullary (IM) nailing of tibial shaft fracture is a procedure in which a metal john or wire (nail) is placed inside the tibia. The tibia is a bone in the lower leg. The bone may take up to 4? 6 months to heal. ? ? After this procedure, you will not need a cast, and you may be able to put some weight on your leg right away (partial weight-bearing). ? ? You should not use any products that contain nicotine or tobacco for as long as told before your procedure. This information is not intended to replace advice given to you by your health care provider. Make sure you discuss any questions you have with your health care provider. Document Revised: 10/07/2020 Document Reviewed: 10/07/2020 [employer] Patient Education ?? 2021 [employer] Intramedullary Nailing of Tibial Shaft Fracture, Care After This sheet gives you information about how to care for yourself after your procedure. Your health care provider may also give you more specific instructions. If you have problems or questions, contact your health care provider. What can I expect after the procedure? After the procedure, it is common to have pain and swelling in your lower leg. Follow these instructions at home: Medicines ? ? Take oqxr-ajc-xxphqxh and prescription medicines only as told by your health care provider. ? ? If you were prescribed an antibiotic medicine, take it as told by your health care provider. Do not stop taking the antibiotic even if you start to feel better. ? ? Ask your health care provider if the medicine prescribed to you: ? ? Requires you to avoid driving or using machinery. ? ? Can cause constipation. You may need to take these actions to prevent or treat constipation: ? ? Drink enough fluid to keep your urine pale yellow. ? ? Take rvzo-wgo-uhambiq or prescription medicines. ? ? Eat foods that are high in fiber, such as beans, whole grains, and fresh fruits and vegetables. ? ? Limit foods that are high in fat and processed sugars, such as fried or sweet foods. If you have a splint: ? ? Wear the splint as told by your health care provider. Remove it only as told by your health care provider. ? ? Loosen the splint if your toes tingle, become numb, or turn cold and blue. ? ? Keep the splint clean and dry. ? ? Ask your health care provider when it is safe to drive. Bathing ? ? Do not take baths, swim, or use a hot tub until your health care provider approves. Ask your health care provider if you may take showers. You may only be allowed to take sponge baths. ? ? If the splint is not waterproof: ? ? Do not let it get wet. ? ? Cover it with a watertight covering when you take a bath or shower. ? ? Keep your bandage (dressing) dry. Incision care ? ? Follow instructions from your health care provider about how to take care of your incision. Make sure you: ? ? Wash your hands with soap and water for at least 20 seconds before and after you change your dressing. If soap and water are not available, use hand scrap sorter. ? ? Change your dressing as told by your health care provider. ? ? Leave stitches (sutures), skin glue, or adhesive strips in place. These skin closures may need to stay in place for 2 weeks or longer. If adhesive strip edges start to loosen and curl up, you may trim the loose edges. Do not remove adhesive strips completely unless your health care provider tells you to do that. ? ? Check your incision area every day for signs of infection. Check for: ? ? More redness, swelling, or pain. ? ? More fluid or blood. ? ? Warmth. ? ? Pus or a bad smell. Managing pain, stiffness, and swelling ? ? If directed, put ice on the injured area. To do this: ? ? If you have a removable splint, remove it as told by your health care provider. ? ? Put ice in a plastic bag. ? ? Place a towel between your skin and the bag. ? ? Leave the ice on for 20 minutes, 2? 3 times a day. ? ? Remove the ice if your skin turns bright red. This is very important. If you cannot feel pain, heat, or cold, you have a greater risk of damage to the area. ? ? Move your toes often to reduce stiffness and swelling. ? ? Raise (elevate) the injured area above the level of your heart while you are sitting or lying down. Activity ? ? Do not use the injured limb to support your full body weight until your health care provider says that you can. You may be able to put some weight on your leg (partial weight-bearing). Use crutches or a walker as told by your health care provider. ? ? Rest as told by your health care provider. ? ? Avoid sitting or lying for a long time without moving. Get up to take short walks every 1? 2 hours. This is important to improve blood flow and breathing. Ask for help if you feel weak or unsteady. You will be encouraged to walk with assistance as soon as you can. This will help prevent blood clots. ? ? Do exercises as told by your health care provider. It is important to do physical therapy to regain muscle strength and range of motion in your leg. ? ? Return to your normal activities as told by your health care provider. Ask your health care provider what activities are safe for you. General instructions ? ? Do not use any products that contain nicotine or tobacco, such as cigarettes, e-cigarettes, and chewing tobacco. These can delay bone healing. If you need help quitting, ask your health care provider. ? ? Take actions to prevent falls at home, such as removing throw rugs and tripping hazards. ? ? Keep all follow-up visits. This is important. Contact a health care provider if: ? ? You have more redness, swelling, or pain around your incision. ? ? You have more fluid or blood coming from your incision. ? ? Your incision feels warm to the touch. ? ? You have pus or a bad smell coming from your incision. ? ? You have a fever. Get help right away if: ? ? Your incision breaks open. ? ? You have red, painful, or swollen areas in one or both legs. ? ? You have severe pain that does not get better with medicine. Summary ? ? After your procedure, it is common to have pain and swelling in your lower leg. ? ? Check your incision area every day for signs of infection, such as more redness or swelling. ? ? Do not use the injured limb to support your full body weight until your health care provider says that you can. You may be able to put some weight on your leg (partial weight-bearing). Use crutches or a walker as told by your health care provider. ? ? Ask your health care provider what activities are safe for you while you recover. It is important to do physical therapy to regain strength and range of motion in your leg. ? ? Keep all follow-up visits. This is important. This information is not intended to replace advice given to you by your health care provider. Make sure you discuss any questions you have with your health care provider. Document Revised: 10/07/2020 Document Reviewed: 10/07/2020 [employer] Patient Education ?? 2021 [employer]. Medication Leaflets: oxycodone (ox i KOE done) Oxaydo, OxyCONTIN, Roxicodone, RoxyBond, Xtampza ER What is the most important information I should know about oxycodone? MISUSE OF OPIOID MEDICINE CAN CAUSE ADDICTION, OVERDOSE, OR . Keep the medication in a place where others cannot get to it. Taking opioid medicine during may cause life-threatening withdrawal symptoms in the . Fatal side effects can occur if you use opioid medicine with alcohol, or with other drugs that cause drowsiness or slow your breathing. What is oxycodone? Oxycodone is an opioid pain medication used to treat moderate to severe pain. The extended-release form of oxycodone is for zxfwxu-oej-jneap treatment of pain and should not be used on an as-needed basis for pain. Oxycodone may also be used for purposes not listed in this medication guide. What should I discuss with my healthcare provider before using oxycodone? You should not use oxycodone if you are allergic to it, or if you have: ? severe asthma or breathing problems; or ? ? a blockage in your stomach or intestines. You should not use oxycodone unless you are already using a similar opioid medicine and are tolerant to it. Most brands of oxycodone are not approved for use in people under 18. OxyContin should not be given to a child younger than 11 years old. Tell your doctor if you have ever had: ? breathing problems, sleep apnea; ? ? a head injury, or seizures; ? ? drug or alcohol addiction, or mental illness; ? ? liver or kidney disease; ? ? urination problems; or ? ? problems with your gallbladder, pancreas, or thyroid. If you use opioid medicine while you are , your baby could become dependent on the drug. This can cause life-threatening withdrawal symptoms in the baby after it is born. Babies born dependent on opioids may need medical treatment for several weeks. Ask a doctor before using opioid medicine if you are . Tell your doctor if you notice severe drowsiness or slow breathing in the nursing baby. How should I use oxycodone? Follow the directions on your prescription label and read all medication guides. Never use oxycodone in larger amounts, or for longer than prescribed. Tell your doctor if you feel an increased urge to take more of this medicine. Never share opioid medicine with another person, especially someone with a history of drug abuse or addiction. MISUSE CAN CAUSE ADDICTION, OVERDOSE, OR . Keep the medication in a place where others cannot get to it. Selling or giving away opioid medicine is against the law. Stop taking all other kwxlik-gop-cvipe opioid pain medicines when you start taking extended-release oxycodone. Take oxycodone with food. Swallow the capsule or tablet whole to avoid exposure to a potentially fatal overdose. Do not crush, chew, break, open, or dissolve. If you cannot swallow a capsule whole, open it and sprinkle the medicine into a spoonful of pudding or applesauce. Swallow the mixture right away without chewing. Do not save it for later use. Never crush or break an oxycodone pill to inhale the powder or mix it into a liquid to inject the drug into your vein. This can cause in . Measure liquid medicine carefully. Use the dosing syringe provided, or use a medicine dose-measuring device (not a kitchen spoon). You should not stop using oxycodone suddenly. Follow your doctor's instructions about tapering your dose. Store at room temperature, away from heat, moisture, and light. Keep track of your medicine. Oxycodone is a drug of abuse and you should be aware if anyone is using your medicine improperly or without a prescription. Do not keep leftover opioid medication. Just one dose can cause in someone using this medicine accidentally or improperly. Ask your pharmacist where to locate a drug take-back disposal program. If there is no take-back program, flush the unused medicine down the toilet. What happens if I miss a dose? Since oxycodone is used for pain, you are not likely to miss a dose. Skip any missed dose if it is almost time for your next dose. Do not use two doses at one time. What happens if I overdose? Seek emergency medical attention or call the Poison Help line at . An opioid overdose can be fatal, especially in a child or other person using the medicine without a prescription. Overdose symptoms may include severe drowsiness, pinpoint pupils, slow breathing, or no breathing. Your doctor may recommend you get naloxone (a medicine to reverse an opioid overdose) and keep it with you at all times. A person caring for you can give the naloxone if you stop breathing or don't wake up. Your caregiver must still get emergency medical help and may need to perform CPR (cardiopulmonary resuscitation) on you while waiting for help to arrive. Anyone can buy naloxone from a pharmacy or local health department. Make sure any person caring for you knows where you keep naloxone and how to use it. What should I avoid while using oxycodone? Do not drink alcohol. Dangerous side effects or could occur. Avoid driving or operating machinery until you know how oxycodone will affect you. Dizziness or severe drowsiness can cause falls or other accidents. Avoid medication errors. Always check the brand and strength of oxycodone you get from the pharmacy. What are the possible side effects of oxycodone? Get emergency medical help if you have signs of an allergic reaction: hives; difficult breathing; swelling of your face, lips, tongue, or throat. Opioid medicine can slow or stop your breathing, and may occur. A person caring for you should give naloxone and/or seek emergency medical attention if you have slow breathing with long pauses, blue colored lips, or if you are hard to wake up. Call your doctor at once if you have: ? noisy breathing, sighing, shallow breathing, breathing that stops during sleep; ? ? a slow heart rate or weak pulse; ? ? a light-headed feeling, like you might pass out; ? ? confusion, unusual thoughts or behavior; ? ? seizure (convulsions); ? ? low cortisol levels-- nausea, vomiting, loss of appetite, dizziness, worsening tiredness or weakness; or ? ? high levels of serotonin in the body--agitation, hallucinations, fever, sweating, shivering, fast heart rate, muscle stiffness, twitching, loss of coordination, nausea, vomiting, diarrhea. Serious breathing problems may be more likely in older adults and in those who are debilitated or have wasting syndrome or chronic breathing disorders. Common side effects may include: ? drowsiness, headache, dizziness, tiredness; or ? ? constipation, stomach pain, nausea, vomiting. This is not a complete list of side effects and others may occur. Call your doctor for medical advice about side effects. You may report side effects to FDA at 8-014-UNT-8854. What other drugs will affect oxycodone? You may have breathing problems or withdrawal symptoms if you start or stop taking certain other medicines. Tell your doctor if you also use an antibiotic, antifungal medication, heart or blood pressure medication, seizure medication, or medicine to treat HIV or hepatitis C. Opioid medication can interact with many other drugs and cause dangerous side effects or . Be sure your doctor knows if you also use: ? cold or allergy medicines, bronchodilator asthma/COPD medication, or a diuretic ('water pill'); ? ? medicines for motion sickness, irritable bowel syndrome, or overactive bladder; ? ? other opioids--opioid pain medicine or prescription cough medicine; ? ? a sedative like Valium--diazepam, alprazolam, lorazepam, Xanax, Klonopin, Versed, and others; ? ? drugs that make you sleepy or slow your breathing--a sleeping pill, muscle relaxer, medicine to treat mood disorders or mental illness; or ? ? drugs that affect serotonin levels in your body--a stimulant, or medicine for depression, Parkinson's disease, migraine headaches, serious infections, or nausea and vomiting. This list is not complete and many other drugs may affect oxycodone. This includes prescription and klkk-vtm-vqyniba medicines, vitamins, and herbal products. Not all possible drug interactions are listed here. Where can I get more information? Your pharmacist can provide more information about oxycodone. Remember, keep this and all other medicines out of the reach of children, never share your medicines with others, and use this medication only for the indication prescribed. Every effort has been made to ensure that the information provided by [employer] is accurate, up-to-date, and complete, but no guarantee is made to that effect. Drug information contained herein may be time sensitive. [employer] information has been compiled for use by healthcare practitioners and consumers in the [place] and therefore [employer] does not warrant that uses outside of the [place] are appropriate, unless specifically indicated otherwise. [employer] drug information does not endorse drugs, diagnose patients or recommend therapy. [employer] drug information is an informational resource designed to assist licensed healthcare practitioners in caring for their patients and/or to serve consumers viewing this service as a supplement to, and not a substitute for, the expertise, skill, knowledge and judgment of healthcare practitioners. The absence of a warning for a given drug or drug combination in no way should be construed to indicate that the drug or drug combination is safe, effective or appropriate for any given patient. [facility] does not assume any responsibility for any aspect of healthcare administered with the aid of information [facility] provides. The information contained herein is not intended to cover all possible uses, directions, precautions, warnings, drug interactions, allergic reactions, or adverse effects. If you have questions about the drugs you are taking, check with your doctor, nurse or pharmacist. Copyright 5927-5621 [facility]. Version: 16.. Revision Date: 12/09/2022. ondansetron (oral) (on SONJA se emmanuel) What is the most important information I should know about ondansetron? You should not use ondansetron if you are also using apomorphine (Apokyn). What is ondansetron? Ondansetron blocks the actions of chemicals in the body that can trigger nausea and vomiting. Ondansetron is used to prevent nausea and vomiting that may be caused by surgery, cancer chemotherapy, or radiation treatment. Ondansetron may be used for purposes not listed in this medication guide. What should I discuss with my health care provider before taking ondansetron? You should not use ondansetron if: ? you are also using apomorphine (Apokyn); or ? ? you are allergic to ondansetron or similar medicines (dolasetron, granisetron, palonosetron). To make sure ondansetron is safe for you, tell your doctor if you have: ? liver disease; ? ? an electrolyte imbalance (such as low levels of potassium or magnesium in your blood); ? ? congestive heart failure, slow heartbeats; ? ? a personal or family history of long QT syndrome; or ? ? a blockage in your digestive tract (stomach or intestines). Ondansetron is not expected to harm an unborn baby. Tell your doctor if you are . It is not known whether ondansetron passes into breast milk or if it could harm a nursing baby. Tell your doctor if you are breast-feeding a baby. Ondansetron is not approved for use by anyone younger than 4 years old. Ondansetron orally disintegrating tablets may contain phenylalanine. Tell your doctor if you have phenylketonuria (PKU). How should I take ondansetron? Follow all directions on your prescription label. Do not take this medicine in larger or smaller amounts or for longer than recommended. Ondansetron can be taken with or without food. The first dose of ondansetron is usually taken before the start of your surgery, chemotherapy, or radiation treatment. Follow your doctor's dosing instructions very carefully. Take the ondansetron regular tablet with a full glass of water. To take the orally disintegrating tablet (Zofran ODT): ? Keep the tablet in its blister pack until you are ready to take it. Open the package and peel back the foil. Do not push a tablet through the foil or you may damage the tablet. ? ? Use dry hands to remove the tablet and place it in your mouth. ? ? Do not swallow the tablet whole. Allow it to dissolve in your mouth without chewing. ? ? Swallow several times as the tablet dissolves. To use ondansetron oral soluble film (strip) (Zuplenz): ? Keep the strip in the foil pouch until you are ready to use the medicine. ? ? Using dry hands, remove the strip and place it on your tongue. It will begin to dissolve right away. ? ? Do not swallow the strip whole. Allow it to dissolve in your mouth without chewing. ? ? Swallow several times after the strip dissolves. If desired, you may drink liquid to help swallow the dissolved strip. ? ? Wash your hands after using Zuplenz. Measure liquid medicine with the dosing syringe provided, or with a special dose-measuring spoon or medicine cup. If you do not have a dose-measuring device, ask your pharmacist for one. Store at room temperature away from moisture, heat, and light. Store liquid medicine in an upright position. What happens if I miss a dose? Take the missed dose as soon as you remember. Skip the missed dose if it is almost time for your next scheduled dose. Do not take extra medicine to make up the missed dose. What happens if I overdose? Seek emergency medical attention or call the Poison Help line at . Overdose symptoms may include sudden loss of vision, severe constipation, feeling light-headed, or fainting. What should I avoid while taking ondansetron? Ondansetron may impair your thinking or reactions. Be careful if you drive or do anything that requires you to be alert. What are the possible side effects of ondansetron? Get emergency medical help if you have signs of an allergic reaction: rash, hives; fever, chills, difficult breathing; swelling of your face, lips, tongue, or throat. Call your doctor at once if you have: ? severe constipation, stomach pain, or bloating; ? ? headache with chest pain and severe dizziness, fainting, fast or pounding heartbeats; ? ? fast or pounding heartbeats; ? ? jaundice (yellowing of the skin or eyes); ? ? blurred vision or temporary vision loss (lasting from only a few minutes to several hours); ? ? high levels of serotonin in the body--agitation, hallucinations, fever, fast heart rate, overactive reflexes, nausea, vomiting, diarrhea, loss of coordination, fainting. Common side effects may include: ? diarrhea or constipation; ? ? headache; ? ? drowsiness; or ? ? tired feeling. This is not a complete list of side effects and others may occur. Call your doctor for medical advice about side effects. You may report side effects to FDA at 4-093-HFQ-0100. What other drugs will affect ondansetron? Ondansetron can cause a serious heart problem, especially if you use certain medicines at the same time, including antibiotics, antidepressants, heart rhythm medicine, antipsychotic medicines, and medicines to treat cancer, malaria, HIV or AIDS. Tell your doctor about all medicines you use, and those you start or stop using during your treatment with ondansetron. Taking ondansetron while you are using certain other medicines can cause high levels of serotonin to build up in your body, a condition called 'serotonin syndrome,' which can be fatal. Tell your doctor if you also use: ? medicine to treat depression; ? ? medicine to treat a psychiatric disorder; ? ? a narcotic (opioid) medication; or ? ? medicine to prevent nausea and vomiting. This list is not complete and many other drugs can interact with ondansetron. This includes prescription and lzmh-pom-iekrsra medicines, vitamins, and herbal products. Give a list of all your medicines to any healthcare provider who treats you. Where can I get more information? Your pharmacist can provide more information about ondansetron. Remember, keep this and all other medicines out of the reach of children, never share your medicines with others, and use this medication only for the indication prescribed. Every effort has been made to ensure that the information provided by [employer]. [employer]') is accurate, up-to-date, and complete, but no guarantee is made to that effect. Drug information contained herein may be time sensitive. [employer] information has been compiled for use by healthcare practitioners and consumers in the [place] and therefore [employer] does not warrant that uses outside of the [place] are appropriate, unless specifically indicated otherwise. [employer] drug information does not endorse drugs, diagnose patients or recommend therapy. [employer] drug information is an informational resource designed to assist licensed healthcare practitioners in caring for their patients and/or to serve consumers viewing this service as a supplement to, and not a substitute for, the expertise, skill, knowledge and judgment of healthcare practitioners. The absence of a warning for a given drug or drug combination in no way should be construed to indicate that the drug or drug combination is safe, effective or appropriate for any given patient. [employer] does not assume any responsibility for any aspect of healthcare administered with the aid of information [employer] provides. The information contained herein is not intended to cover all possible uses, directions, precautions, warnings, drug interactions, allergic reactions, or adverse effects. If you have questions about the drugs you are taking, check with your doctor, nurse or pharmacist. Copyright 9432-5754 [employer]. Version: 16.. Revision Date: 12/08/2022. aspirin (oral) ( pir in) Aspi-Cor, Abdullahi Plus, Durlaza, Ecotrin, Miniprin, Vazalore What is the most important information I should know about aspirin? Aspirin can cause Kera's syndrome, a serious and sometimes fatal condition in children. What is aspirin? Aspirin is a salicylate (vp-UQG-zh-ate) that is used to treat pain, and reduce fever or inflammation. Aspirin is sometimes used to treat or prevent heart attacks, strokes, and chest pain (angina). Aspirin should be used for these conditions only under the supervision of a doctor. Aspirin may also be used for purposes not listed in this medication guide. What should I discuss with my healthcare provider before taking aspirin? Using aspirin in a child or teenager with flu symptoms or chickenpox can cause a serious or fatal condition called Kera's syndrome. You should not use aspirin if you are allergic to it, or if you have: ? a recent history of stomach or intestinal bleeding; ? ? a bleeding disorder such as hemophilia; or ? ? if you have ever had an asthma attack or severe allergic reaction after taking aspirin or an NSAID (non-steroidal anti-inflammatory drug). Tell your doctor if you have ever had: ? asthma or seasonal allergies; ? ? stomach ulcers; ? ? liver disease; ? ? kidney disease; ? ? a bleeding or blood clotting disorder; ? ? gout; or ? ? heart disease, high blood pressure, or congestive heart failure. Taking aspirin during late may cause bleeding in the mother or the baby during delivery. Tell your doctor if you are or plan to become . You should not breastfeed while using this medicine. How should I take aspirin? Use exactly as directed on the label, or as prescribed by your doctor. Always follow directions on the medicine label about giving aspirin to a child. Take with food if aspirin upsets your stomach. You must chew the chewable tablet before you swallow it. Do not crush, chew, break, or open an enteric-coated or delayed/extended-release pill. Swallow it whole. Tell your doctor if you have a planned surgery. Store at room temperature away from moisture and heat. Do not use aspirin if you smell a strong vinegar odor in the aspirin bottle. The medicine may no longer be effective. What happens if I miss a dose? Aspirin is used when needed. If you are on a dosing schedule, skip any missed dose. Do not use two doses at one time. What happens if I overdose? Seek emergency medical attention or call the Poison Help line at . Overdose may cause stomach pain, vomiting, diarrhea, vision or hearing problems, fast or slow breathing, or confusion. What should I avoid while taking aspirin? Avoid alcohol. Heavy drinking can increase your risk of stomach bleeding. Avoid taking ibuprofen if you take aspirin to prevent stroke or heart attack. Ibuprofen can make aspirin less effective in protecting your heart and blood vessels. Ask your doctor how far apart your doses should be. Ask a doctor or pharmacist before using other medicines for pain, fever, swelling, or cold/flu symptoms. They may contain ingredients similar to aspirin (such as magnesium salicylate, ibuprofen, ketoprofen, or naproxen). What are the possible side effects of aspirin? Get emergency medical help if you have signs of an allergic reaction: hives; difficult breathing; swelling of your face, lips, tongue, or throat. Stop using aspirin and call your doctor at once if you have: ? ringing in your ears, confusion, hallucinations, rapid breathing, seizure (convulsions); ? ? severe nausea, vomiting, or stomach pain; ? ? bloody or tarry stools, coughing up blood or vomit that looks like coffee grounds; ? ? fever lasting longer than 3 days; or ? ? swelling, or pain lasting longer than 10 days. Common side effects may include: ? upset stomach, heartburn; ? ? drowsiness; or ? ? mild headache. This is not a complete list of side effects and others may occur. Call your doctor for medical advice about side effects. You may report side effects to FDA at 2-595-SRT-5506. What other drugs will affect aspirin? Ask your doctor before using aspirin if you take an antidepressant. Taking certain antidepressants with aspirin may cause you to bruise or bleed easily. Ask a doctor or pharmacist before using aspirin with any other medications, especially: ? a blood thinner (warfarin, Coumadin, Jantoven), or other medication used to prevent blood clots; or ? ? other salicylates such as Nuprin Backache Caplet, Kaopectate, KneeRelief, Pamprin Cramp Formula, Pepto-Bismol, Tricosal, Trilisate, and others. This list is not complete. Other drugs may affect aspirin, including prescription and keij-ihd-mmneiiq medicines, vitamins, and herbal products. Not all possible drug interactions are listed here. Where can I get more information? Your pharmacist can provide more information about aspirin. Remember, keep this and all other medicines out of the reach of children, never share your medicines with others, and use this medication only for the indication prescribed. Every effort has been made to ensure that the information provided by [employer] is accurate, up-to-date, and complete, but no guarantee is made to that effect. Drug information contained herein may be time sensitive. [employer] information has been compiled for use by healthcare practitioners and consumers in the [place] and therefore [employer] does not warrant that uses outside of the [place] are appropriate, unless specifically indicated otherwise. [facility]'s drug information does not endorse drugs, diagnose patients or recommend therapy. [facility] drug information is an informational resource designed to assist licensed healthcare practitioners in caring for their patients and/or to serve consumers viewing this service as a supplement to, and not a substitute for, the expertise, skill, knowledge and judgment of healthcare practitioners. The absence of a warning for a given drug or drug combination in no way should be construed to indicate that the drug or drug combination is safe, effective or appropriate for any given patient. [facility] does not assume any responsibility for any aspect of healthcare administered with the aid of information [facility] provides. The information contained herein is not intended to cover all possible uses, directions, precautions, warnings, drug interactions, allergic reactions, or adverse effects. If you have questions about the drugs you are taking, check with your doctor, nurse or pharmacist. Copyright [id number] [facility] [employer]. Version: 18.. Revision Date: 11/28/2022. senna (SEN nah) Ex-Lax Chocolated, Ex-Lax Maximum Strength, Ex-Lax Regular Strength Pills, Fletchers Cast[place], Alma-soraya, Innerclean, Senna, Senna Lax, Senna-Time, Senokot, Senokot Extra Strength, Senokot Laxative Gummies Blue Pomegranate, Senokot Laxative Gummies Mixed Berries, Senokot Tea, SenoSol, SenoSol-X What is the most important information I should know about senna? Follow all directions on the product label and package. Tell each of your healthcare providers about all your medical conditions, allergies, and all medicines you use. What is senna? Senna is an herb also known as Alexandrian Senna, Casse, Fan Brenda Ye, Senna, [place] Senna, Sen, [place], Sennae Folium, Sennae Fructus, Sennosides, Tinnevelly Senna, True Senna, and other names. Senna is likely effective in alternative medicine as an aid in treating occasional constipation in adults and children at least 2 years old. Senna has been used in alternative medicine as a possibly effective aid in emptying the bowel before a colonoscopy. Other uses not proven with research have included weight loss, irritable bowel syndrome, hemorrhoids, and other conditions. It is not certain whether senna is effective in treating any medical condition. Medicinal use of this product has not been approved by the FDA. Senna should not be used in place of medication prescribed for you by your doctor. Senna is often sold as an herbal supplement. There are no regulated manufacturing standards in place for many herbal compounds and some marketed supplements have been found to be contaminated with toxic metals or other drugs. Herbal/health supplements should be purchased from a reliable source to minimize the risk of contamination. Senna may also be used for purposes not listed in this product guide. What should I discuss with my healthcare provider before taking senna? You should not use senna if you are allergic to it, or if you have: ? diarrhea; ? ? hemorrhoids; ? ? stomach pain; ? ? a blockage in your intestines; ? ? inflammatory bowel disease; or ? ? appendicitis. Ask a doctor, pharmacist, or other healthcare provider if it is safe for you to use this product if you have ever had: ? an electrolyte imbalance (such as low levels of potassium in your blood); ? ? any change in bowel habits that has lasted longer than 2 weeks; ? ? long-term bowel problems; ? ? stomach pain, nausea, or vomiting; or ? ? if you are taking mineral oil. Ask a doctor before using this product if you are or . Do not give any herbal/health supplement to a child without medical advice. How should I take senna? When considering the use of senna, seek the advice of your doctor. You may also consider consulting a practitioner who is trained in the use of herbal/health supplements. If you choose to use senna, use it as directed on the package or as directed by your doctor, pharmacist, or other healthcare provider. Do not use more of this product than is recommended on the label. Swallow the tablet whole with a full glass of water and do not crush, chew, or break it. You must chew the chewable tablet before you swallow it. Measure liquid product with the supplied measuring device (not a kitchen spoon). Taking more than your recommended dose will not make this product more effective, and may cause serious side effects. Senna should produce a bowel movement within 6 to 12 hours after you take it. Do not use different forms of senna (tablets, liquids, and others) at the same time or you could have an overdose. Call your healthcare provider if your constipation does not improve after 1 week of using senna, or if constipation gets worse. Do not take senna for longer than 1 week, unless your healthcare provider has told you to. Store at room temperature away from moisture, heat, and light. What happens if I miss a dose? Skip the missed dose and take the next regularly scheduled dose. What happens if I overdose? Seek emergency medical attention or call the Poison Help line at . Overdose symptoms may include electrolyte imbalance (muscle spasms, changes in the shape of your fingers), muscle weakness, heart problems, liver damage, and other side effects. What should I avoid while taking senna? Avoid taking this product within 2 hours before or after you take other medicines. Senna can make it harder for your body to absorb certain medicines you take by mouth. Avoid using senna together with other herbal/health supplements that can lower potassium level. This includes horsetail, licorice, aloe, buckthorn, gossypol, rhubarb, and other stimulant laxative herbs. Do not use other laxatives while taking senna unless your doctor has told you to. What are the possible side effects of senna? Get emergency medical help if you have signs of an allergic reaction: hives, difficult breathing, swelling of your face, lips, tongue, or throat. Stop using senna and call your doctor at once if you have: ? rectal bleeding; ? ? no bowel movement within 12 hours after using senna; or ? ? low blood potassium--leg cramps, constipation, irregular heartbeats, fluttering in your chest, increased thirst or urination, numbness or tingling, muscle weakness or limp feeling. Common side effects may include: ? stomach pain, discomfort, or cramps; ? ? diarrhea, or an urgent need to have a bowel movement; ? ? nausea, gas; or ? ? discoloration of your urine. This is not a complete list of side effects and others may occur. Call your doctor for medical advice about side effects. You may report side effects to FDA at 3-365-SHR-3294. What other drugs will affect senna? Do not take senna without medical advice if you are using the following medications: ? warfarin (Coumadin, Jantoven); or ? ? a diuretic (water pill). This list is not complete. Other drugs may affect senna, including prescription and igbf-qic-jwudmdt medicines, vitamins, and herbal products. Not all possible drug interactions are listed here. Where can I get more information? Consult with a licensed healthcare professional before using any herbal/health supplement. Whether you are treated by a medical doctor or a practitioner trained in the use of natural medicines/supplements, make sure all your healthcare providers know about all of your medical conditions and treatments. Remember, keep this and all other medicines out of the reach of children, never share your medicines with others, and use this medication only for the indication prescribed. Every effort has been made to ensure that the information provided by [employer] is accurate, up-to-date, and complete, but no guarantee is made to that effect. Drug information contained herein may be time sensitive. [employer] information has been compiled for use by healthcare practitioners and consumers in the [place] and therefore [employer] does not warrant that uses outside of the [place] are appropriate, unless specifically indicated otherwise. [employer] drug information does not endorse drugs, diagnose patients or recommend therapy. [employer] drug information is an informational resource designed to assist licensed healthcare practitioners in caring for their patients and/or to serve consumers viewing this service as a supplement to, and not a substitute for, the expertise, skill, knowledge and judgment of healthcare practitioners. The absence of a warning for a given drug or drug combination in no way should be construed to indicate that the drug or drug combination is safe, effective or appropriate for any given patient. [employer] does not assume any responsibility for any aspect of healthcare administered with the aid of information [employer] provides. The information contained herein is not intended to cover all possible uses, directions, precautions, warnings, drug interactions, allergic reactions, or adverse effects. If you have questions about the drugs you are taking, check with your doctor, nurse or pharmacist. Copyright 9806-5320 [employer]. Version: 5.01. Revision Date: 02/28/2023. Accessing??[employer]??Express??Patient??Portal Access medications, test results, radiology reports, and more through [employer] secure patient portal. Please be patient if waiting on lab results, as these can take several days to process. [place] online at??[email or web address]??Use your community medical record number (CMRN) located below to verify your identity on the Self-Enrollment form.We also offer the ability for you to securely connect other health management apps to your health record. See the [facility] Connection link on the website above for more details. Watch [employer] Patient Education Videos and Access Resources anytime online! Visit [email or web address]. Extracted from: Title:Admission H&P Note Author:Oscar Mendes MD Date:04/14/23 Orders: ceFAZolin, 2 g, IVPB, Unscheduled, Start Date: 04/14/23 7:56:00 UX ARCHITECT, Duration: 14 Days, Stop date 04/28/23 7:55:00 UX ARCHITECT, Routine Consent, Exchange Intramedullary Nail Left Tibia Education/Teaching Education/Teaching FL C Arm Greater Than 1 Hour Initiate Plan, Orthopedic/Trauma Pre Admit 1 Initiate Plan, Orthopedic/Trauma Pre Admit 2. Initiate Ortho/Trauma Preadmit 1 if not already done Initiate Plan, Initiate Orthopedic/Trauma Pre Op Orders. Initiate Preadmit 1 & 2 if not already done. Notify Provider, Notify anesthesia of abnormal results. Call to abnormal results to surgeon. Nursing Communication Order, Initiate Anesthesia Preadmission 1 Orders Nursing Communication Order, If diabetic, instruct per Glycemic Management Pre Admission orders Nursing Communication Order, Stop Aspirin _3 or more___ prior to surgery. Nursing Communication Order, Other Medication Instructions - Nursing Communication Order, Stop NSAIDs __3 or more____ days prior to surgery. Nursing Communication Order, Stop Vitamins, Herbs, Minerals, Fish Oil and glucosamine 7 days prior to surgery. Nursing Communication Order, Stop weight loss supplements (including phentermine) 10 days prior to surgery. Nursing Communication Order, Initiate Anesthesia Preadmission 2 Orders. Initiate Anesthesia Preadmit 1 if not already done. Nursing Communication Order, Initiate Anesthesia Pre Op Orders. Initiate Preadmission Anesthesia Orders if not initiated. ? 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 Our plan today will be??to remove the IM nail??and replace??it with an antibiotic coated nail.?? We will send??cultures.?? I will keep??him in the hospital until??cultures are back??and??we can figure??out??what to??put him??on??for IV antibiotics.? Diagnostic Tests Pending * Fungus Culture 04/14/23 * Mycobacterium Culture 04/14/23 * Fungus Culture 04/14/23 * Mycobacterium Culture 04/14/23 Future Scheduled Tests Laboratory* CBC-d 03/13/23 * PTT 03/13/23 * PT/INR 03/13/23 * BMP 03/13/23 Medications aspirin 81 mg oral capsule 81 mg = 1 cap, By mouth, BID, # 60 cap, Refill(s) 0 Start Date: 04/15/23 Stop Date: 05/15/23 Status: Ordered oxyCODONE 5 mg oral tablet 5 mg, = 1 tab, By mouth, Q6H, PRN Pain Moderate (4-6) (2nd Line), 20 tab, 0, 0, Substitution Permitted, [facility], 73, Height (inches) (Clinical), 04/14/23 20:09:00 UX ARCHITECT, in, 102.3, Weight (kg) (Clinical), 04/15/23 3:14:00 UX ARCHITECT, kg Start Date: 04/15/23 Status: Ordered Senokot S oral tablet 2 tab, By mouth, at bedtime, Constipation, # 30 tab, Refill(s) 0, Print Requisition Start Date: 04/15/23 Status: Ordered Zofran 4 mg oral tablet 4 mg = 1 tab, By mouth, Q6H, PRN for nausea & vomiting, # 20 tab, Refill(s) 0 Start Date: 04/15/23 Status: Ordered Problem List Condition Confirmation Course Effective Dates Status Health atus Informant Distal radius fracture, left Confirmed Active Tibia/fibula fracture Confirmed Active Tobacco use Confirmed Active Procedures Procedure Date Related Diagnosis Body Site Status RPR NON/MAL TIBIA W/ILIAC/OTH AGRFT 04/14/23 Completed TX TIBL SHFT FX IMED IMPLT W /WO SCREWS&/CERCLA 04/14/23 Completed NASAL SURGERY 04/03/23 Completed IMN Left Tibia 09/07/22 Completed Appendectomy 1 Completed Bone graft of radius and ulna 2 Completed Nephrectomy 3 Completed [id number] 3nepherectomy left 2005 Results Laboratory List Name Date Magnesium Serum (Mg Serum) 04/15/23 Sed-Rate (ESR) 04/14/23 BMP 04/14/23 CRP 04/14/23 Hemogram 04/14/23 Most recent to oldest [Reference Range]: 1 Anion Gap [2-15 mEq/L] 6 mEq/L (04/14/23 7:58 AM) eGFR CKD-EPI [>=61 mL/min/1.73 m2] 87 mL /min/1.73 m2 (04/14/23 7:58 AM) Glucose, Serum/Plasma [70-100 mg/dL] 104 mg/dL *HI* (04/14/23 7:58 AM) WBC [4.8-10.8 Thous/mm3] 6.7 Thous/mm3 (04/14/23 7:58 AM) Hct [42.0-52.0 %] 40.6 % *LOW* (04/14/23 7:58 AM) Hgb [14.0-18.0 g/dL] 13.8 g/dL *LOW* (04/14/23 7:58 AM) RBC [4.60-6.20 Million/mm3] 4.37 Million /mm3 *LOW* (04/14/23 7:58 AM) MCV [80.0-100.0 fl] 92.9 fl (04/14/23 7:58 AM) MCH [26.0-34.0 pg] 31.6 pg (04/14/23 7:58 AM) MCHC [31.0-36.5 g/dL] 34.0 g/dL (04/14/23 7:58 AM) RDW [10.4-14.4 %] 12.6 % (04/14/23 7:58 AM) Platelets [130-440 Thous/mm3] 363 Thous/ mm3 (04/14/23 7:58 AM) MPV [9.4-12.4 fl] 10.4 fl (04/14/23 7:58 AM) Sodium [136-145 mEq/L] 140 mEq/L (04/14/23 7:58 AM) Potassium [3.5-5.1 mEq/L] 4.3 mEq/L (04/14/23 7:58 AM) Chloride [98-107 mEq/L] 107 mEq/L (04/14/23 7:58 AM) CO2 [21-32 mEq/L] 27 mEq/L (04/14/23 7:58 AM) BUN [7-18 mg/dL] 18 mg/dL (04/14/23 7:58 AM) Creatinine [0.73-1.18 mg/dL] 0.95 mg/dL (04/14/23 7:58 AM) Calcium [8.3-10.6 mg/dL] 9.2 mg/dL (04/14/23 7:58 AM) Magnesium [1.8-2.4 mg/dL] 1.7 mg/dL *LOW* (04/15/23 4:07 AM) CRP [0.00-1.00 mg/dL] 0.70 mg/dL (04/14/23 7:58 AM) ESR [0-15 mm/hr] 23 mm/hr *HI* (04/14/23 8:47 AM) Orders for Microbiology Reports Name Date Acid-Fast Stain (Acid-Fast Stain) 3 Anaerobic Culture (C Anaerobic) 04/14/23 Tissue Culture (C Tissue) 04/14/23 Acid-Fast Stain (Acid-Fast Stain) 3 Anaerobic Culture (C Anaerobic) 04/14/23 Tissue Culture (C Tissue) 04/14/23 Microbiology Reports TEST:Acid-Fast Stain STATUS:Auth (Verified) BODY SITE:Tibia SOURCE:Tissue COLLECTED DATE/TIME:04/14/23 10:48 AM FINAL REPORT No Acid Fast Bacilli observed TEST:Anaerobic Culture1 STATUS:Order in Progress BODY SITE:Tibia SOURCE:Tissue COLLECTED DATE/TIME:04/14/23 10:48 AM PRELIMINARY REPORT negative so far TEST:Tissue Culture STATUS:Order in Progress BODY SITE:Tibia SOURCE:Tissue COLLECTED DATE/TIME:04/14/23 10:48 AM PRELIMINARY REPORT No Growth so far STAIN REPORT Scant amount white blood cells No bacteria seen TEST:Acid-Fast Stain STATUS:Auth (Verified) BODY SITE:Tibia SOURCE:Tissue COLLECTED DATE/TIME:04/14/23 10:23 AM FINAL REPORT No Acid Fast Bacilli observed TEST:Tissue Culture STATUS:Order in Progress BODY SITE:Tibia SOURCE:Tissue COLLECTED DATE/TIME:04/14/23 10:23 AM PRELIMINARY REPORT No Growth so far STAIN REPORT Scant amount white blood cells No bacteria seen TEST:Anaerobic Culture2 STATUS:Order in Progress BODY SITE:Tibia SOURCE:Tissue COLLECTED DATE/TIME:04/14/23 10:23 AM PRELIMINARY REPORT negative so far INTERPRETIVE DATA 1Enhanced identification of organisms in anaerobic cultures due to new testing methodology 2Enhanced identification of organisms in anaerobic cultures due to new testing methodology Vital Signs Most recent to oldest [Reference Range]: 1 2 3 Blood Pressure 115/62 (04/15/23 11:53 AM) 100/60 (04/15/23 7:16 AM) Blood Pressure 100/61mmHg (04/15/23 3:14 AM) Height (inches) (Clinical) 73 in (04/14/23 8:09 PM) 73 in (04/14/23 7:41 AM) Weight (kg) (Clinical) 102.3 kg (04/15/23 3:14 AM) 98.4 kg (04/14/23 8:09 PM) 98.4 kg (04/14/23 7:41 AM) BMI (Clinical) 28.6 kg/m2 (04/14/23 8:09 PM) 28.6 kg/m2 (04/14/23 7:41 AM) Scale Type Bed (04/14/23 7:41 AM) Social History Social History Type Response Smoking Status Current every day sm oker; Smokeless tobacco use: Smokeless tobacco user within last 30 days; Former smoker last 30 days Former smoker < 30 days; Has the patient smoked in the last 365 days, even once? Yes; Type: Cigarettes; Tobacco use per day: 10 or more cigarettes (1/2 pack or more)/day in last 30 days entered on: 04/03/23 Sex Male Implantable Device List Procedure Provider Procedure Date Device Type Site Insertion Intramedullary Nail Tibia Unknown 04/14/23 Unknown Tibia, Left Device Identifier Serial Number Lot or Batch Number Manufacturing Date Expiration Date Distinct Identification Code MRI Safety Implantable Status Assigning Authority Unknown Unknown [id number] Unknown 10/05/32 Unknown Unknown Active Unk nown Procedure Provider Procedure Date Device Type Site Insertion Intramedullary Nail Tibia Unknown 04/14/23 Unknown Tibia, Left Device Identifier Serial Number Lot or Batch Number Manufacturing Date Expiration Date Distinct Identification Code MRI Safety Implantable Status Assigning Authority Unknown Unknown [id number] Unknown 05/07/32 Unknown Unknown Active Un known Procedure Provider Procedure Date Device Type Site Insertion Intramedullary Nail Tibia Unknown 04/14/23 Unknown Tibia, Left Device Identifier Serial Number Lot or Batch Number Manufacturing Date Expiration Date Distinct Identification Code MRI Safety Implantable Status Assigning Authority Unknown Unknown [id number] Unknown 11/04/32 Unknown Unknown Active Unk nown Procedure Provider Procedure Date Device Type Site Insertion Intramedullary Nail Tibia Unknown 04/14/23 Unknown Tibia, Right Device Identifier Serial Number Lot or Batch Number Manufacturing Date Expiration Date Distinct Identification Code MRI Safety Implantable Status Assigning Authority Unknown Unknown [id number] Unknown 10/05/32 Unknown Unknown Active Unk nown Procedure Provider Procedure Date Device Type Site Insertion Intramedullary Nail Tibia Unknown 04/14/23 Unknown Tibia, Left Device Identifier Serial Number Lot or Batch Number Manufacturing Date Expiration Date Distinct Identification Code MRI Safety Implantable Status Assigning Authority Unknown Unknown [id number] Unknown 04/06/32 Unknown Unknown Active Un known Procedure Provider Procedure Date Device Type Site Insertion Intramedullary Nail Tibia Unknown 04/14/23 Unknown Tibia, Left Device Identifier Serial Number Lot or Batch Number Manufacturing Date Expiration Date Distinct Identification Code MRI Safety Implantable Status Assigning Authority Unknown Unknown [id number] Unknown 10/05/32 Unknown Unknown Active Unk nown Procedure Provider Procedure Date Device Type Site Insertion Intramedullary Nail Tibia Unknown 04/14/23 Unknown Tibia, Left Device Identifier Serial Number Lot or Batch Number Manufacturing Date Expiration Date Distinct Identification Code MRI Safety Implantable Status Assigning Authority Unknown Unknown [id number] Unknown 10/05/32 Unknown Unknown Active Unk nown Procedure Provider Procedure Date Device Type Site Insertion Intramedullary Nail Tibia Unknown 04/14/23 Unknown Tibia, Left Device Identifier Serial Number Lot or Batch Number Manufacturing Date Expiration Date Distinct Identification Code MRI Safety Implantable Status Assigning Authority Unknown Unknown [id number] Unknown 08/06/31 Unknown Unknown Active Unk nown Procedure Provider Procedure Date Device Type Site Open Reduction Internal Fixa tion Radius Unknown 09/08/22 Unknown Radius, Left Device Identifier Serial Number Lot or Batch Number Manufacturing Date Expiration Date Distinct Identification Code MRI Safety Implantable Status Assigning Authority Unknown Unknown Unknown Unknown Unknown Unknown Unknown Active Unk nown Unknown Unknown Unknown Unknown Unknown Unknown Unknown Active Unk nown Unknown Unknown Unknown Unknown Unknown Unknown Unknown Active Unk nown Unknown Unknown Unknown Unknown Unknown Unknown Unknown Active Unk nown Unknown Unknown Unknown Unknown Unknown Unknown Unknown Active Unk nown Unknown Unknown Unknown Unknown Unknown Unknown Unknown Active Unk nown Procedure Provider Procedure Date Device Type Site Insertion Intramedullary Nail Tibia Unknown 09/07/22 Unknown Tibia, Left Device Identifier Serial Number Lot or Batch Number Manufacturing Date Expiration Date Distinct Identification Code MRI Safety Implantable Status Assigning Authority Unknown Unknown [id number] Unknown 03/07/32 Unknown Unknown Active Un known Unknown Unknown [id number] Unknown 03/07/32 Unknown Unknown Active Un known Unknown Unknown [id number] Unknown 02/05/32 Unknown Unknown Active Unk nown Unknown Unknown [id number] Unknown 10/06/31 Unknown Unknown Active Unk nown Unknown Unknown [id number] Unknown 11/05/31 Unknown Unknown Active Unk nown Unknown Unknown [id number] Unknown 03/07/32 Unknown Unknown Active Un known Unknown Unknown [id number] Unknown 05/07/32 Unknown Unknown Active Un known Unknown Unknown [id number] Unknown 05/07/32 Unknown Unknown Active Un known Hospital Discharge Instructions Patient Education 04/15/2023 15:34:19 Intramedullary Nailing of Tibial Shaft Fracture Intramedullary Nailing of Tibial Shaft Fracture Intramedullary (IM) nailing of tibial shaft fracture is a procedure in which a metal john or wire (nail) is placed inside the tibia. The tibia is a bone in the lower leg. The nail holds the broken bone (fracture) in place while it heals. After this procedure, you will not need a cast, and you may beable to put some weight on your leg right away (partial weight-bearing). The bone may take up to 4???6 months to heal. This procedure is usually done when a large force, such as from a car crash or sports accident, hasfractured the tibia. Often, the other bone in the lower leg (fibula) is fractured at the same time. Tell a health care provider about: ??? Any allergies you have. ??? All medicines you are taking, including vitamins, herbs, eye drops, creams, and arxp-mml-vnfdugt medicines. ??? Any problems you or family members have had with anesthetic medicines. ??? Any blood disorders you have. ??? Any surgeries you have had. ??? Any medical conditions you have. ??? Whether you are or may be . What are the risks? Generally, this is a safe procedure. However, problems may occur, including: ??? Infection. ??? Allergic reactions to medicines. ??? Damage to nearby structures, such as nerves or blood vessels. ??? Blood clots. ??? Scarring. ??? Failure of the bone to heal properly (nonunion). ??? Needing another procedure to remove the IM nail if it causes pain. ??? Severe swelling and pain in the injured leg (compartment syndrome). What happens before the procedure? Staying hydrated Follow instructions from your health care provider about hydration, which may include: ??? Up to 2 hours before the procedure ??? you may continue to drink clear liquids, such as water, clear fruit juice, black coffee, and plain tea. Eating and drinking restrictions Follow instructions from your health care provider about eating and drinking, which may include: ??? 8 hours before the procedure ??? stop eating heavy meals or foods, such as meat, fried foods, or fatty foods. ??? 6 hours before the procedure ??? stop eating light meals or foods, such as toast or cereal. ??? 6 hours before the procedure ??? stop drinking milk or drinks that contain milk. ??? 2 hours before the procedure ??? stop drinking clear liquids. Medicines Ask your health care provider about: ??? Changing or stopping your regular medicines. This is especially important if you are taking diabetes medicines or blood thinners. ??? Taking medicines such as aspirin and ibuprofen. These medicines can thin your blood. Do not take these medicines unless your health care provider tells you to take them. ??? Taking wmyk-lhm-dorqozd medicines, vitamins, herbs, and supplements. General instructions ??? Do not use any products that contain nicotine or tobacco for as long as told before the procedure. These products include cigarettes, e-cigarettes, and chewing tobacco. If you need help quitting,ask your health care provider. ??? You may have a physical exam. It is important that you tell your health care provider how your injury occurred and if you have other pains or think you may have other injuries. ??? You may have imaging tests, such as X-rays or a CT scan. ??? Ask your health care provider: ??? How your surgery site will be marked. ??? What steps will be taken to help prevent infection. These steps may include: ??? Removing hair at the surgery site. ??? Washing skin with a germ-killing soap. ??? Receiving antibiotic medicine. ??? Plan to have responsible adult take you home from the hospital or clinic. ??? Plan to have a responsible adult care for you for the time you are told after you leave the hospital or clinic. This is important. What happens during the procedure? An IV will be inserted into one of your veins. ??? You will be given one or both of the following: ??? A medicine to help you relax (sedative). ??? A medicine to make you fall asleep (general anesthetic). ??? An incision will be made below the knee on the front side of the leg. ??? Skin and tissue will be moved out of the way with a surgical device. ??? A metal john may be placed in the canal of the tibia across the fracture to keep the fractured section of bone in place. ??? An X-ray or a series of X-rays may be done to make sure that the john is in the correct place. ??? The IM nail will be screwed into place on either side of the fracture to keep the bone in position and allow the bone to heal. ??? An X-ray will be done to make sure that the IM nail is in the correct place. ??? Tendons and other tissue will be closed with stitches (sutures) that do not need to be removed. ??? Your incision will be closed with sutures. ??? A bandage (dressing) may be placed over your incision. ??? A removable splint may be placed over the dressing. The procedure may vary among health care providers and hospitals. What happens after the procedure? Your blood pressure, heart rate, breathing rate, and blood oxygen level will be monitored untilyou leave the hospital or clinic. ??? You may continue to receive fluids and medicines through an IV. ??? You will have some leg pain. You will be given medicines as needed. ??? You will be encouraged to do deep breathing exercises. ??? Do not drive until your health care provider says that it is safe. Summary ??? Intramedullary (IM) nailing of tibial shaft fracture is a procedure in which a metal john or wire (nail) is placed inside the tibia. The tibia is a bone in the lower leg. The bone may take up to 4???6 months to heal. ??? After this procedure, you will not need a cast, and you may be able to put some weight on your leg right away (partial weight-bearing). ??? You should not use any products that contain nicotine or tobacco for as long as told before your procedure. This information is not intended to replace advice given to you by your health care provider. Make sure you discuss any questions you have with your health care provider. Document Revised: 10/07/2020 Document Reviewed: 10/07/2020 [employer] Patient Education ?? 2021 [employer]. 04/15/2023 15:34:19 Intramedullary Nailing of Tibial Shaft Fracture, Care After Intramedullary Nailing of Tibial Shaft Fracture, Care After This sheet gives you information about how to care for yourself after your procedure. Your health care provider may also give you more specific instructions. If you have problems or questions, contact your health care provider. What can I expect after the procedure? After the procedure, it is common to have pain and swelling in your lower leg. Follow these instructions at home: Medicines ??? Take nfdv-psy-bvdqdlf and prescription medicines only as told by your health care provider. ??? If you were prescribed an antibiotic medicine, take it as told by your health care provider. Donot stop taking the antibiotic even if you start to feel better. ??? Ask your health care provider if the medicine prescribed to you: ??? Requires you to avoid driving or using machinery. ??? Can cause constipation. You may need to take these actions to prevent or treat constipation: ??? Drink enough fluid to keep your urine pale yellow. ??? Take klpe-yig-wqzecjw or prescription medicines. ??? Eat foods that are high in fiber, such as beans, whole grains, and fresh fruits and vegetables. ??? Limit foods that are high in fat and processed sugars, such as fried or sweet foods. If you have a splint: ??? Wear the splint as told by your health care provider. Remove it only as told by your health care provider. ??? Loosen the splint if your toes tingle, become numb, or turn cold and blue. ??? Keep the splint clean and dry. ??? Ask your health care provider when it is safe to drive. Bathing ??? Do not take baths, swim, or use a hot tub until your health care provider approves. Ask your health care provider if you may take showers. You may only be allowed to take sponge baths. ??? If the splint is not waterproof: ??? Do not let it get wet. ??? Cover it with a watertight covering when you take a bath or shower. ??? Keep your bandage (dressing) dry. Incision care ??? Follow instructions from your health care provider about how to take care of your incision. Make sure you: ??? Wash your hands with soap and water for at least 20 seconds before and after you change your dressing. If soap and water are not available, use hand scrap sorter. ??? Change your dressing as told by your health care provider. ??? Leave stitches (sutures), skin glue, or adhesive strips in place. These skin closures may need to stay in place for 2 weeks or longer. If adhesive strip edges start to loosen and curl up, you maytrim the loose edges. Do not remove adhesive strips completely unless your health care provider tells you to do that. ??? Check your incision area every day for signs of infection. Check for: ??? More redness, swelling, or pain. ??? More fluid or blood. ??? Warmth. ??? Pus or a bad smell. Managing pain, stiffness, and swelling ??? If directed, put ice on the injured area. To do this: ??? If you have a removable splint, remove it as told by your health care provider. ??? Put ice in a plastic bag. ??? Place a towel between your skin and the bag. ??? Leave the ice on for 20 minutes, 2???3 times a day. ??? Remove the ice if your skin turns bright red. This is very important. If you cannot feel pain, heat, or cold, you have a greater risk of damage to the area. ??? Move your toes often to reduce stiffness and swelling. ??? Raise (elevate) the injured area above the level of your heart while you are sitting or lying down. Activity ??? Do not use the injured limb to support your full body weight until your health care provider says that you can. You may be able to put some weight on your leg (partial weight-bearing). Use crutches or a walker as told by your health care provider. ??? Rest as told by your health care provider. ??? Avoid sitting or lying for a long time without moving. Get up to take short walks every 1???2 hours. This is important to improve blood flow and breathing. Ask for help if you feel weak or unsteady. You will be encouraged to walk with assistance as soon as you can. This will help prevent blood clots. ??? Do exercises as told by your health care provider. It is important to do physical therapy to regain muscle strength and range of motion in your leg. ??? Return to your normal activities as told by your health care provider. Ask your health care provider what activities are safe for you. General instructions ??? Do not use any products that contain nicotine or tobacco, such as cigarettes, e-cigarettes, andchewing tobacco. These can delay bone healing. If you need help quitting, ask your health care provider. ??? Take actions to prevent falls at home, such as removing throw rugs and tripping hazards. ??? Keep all follow-up visits. This is important. Contact a health care provider if: ??? You have more redness, swelling, or pain around your incision. ??? You have more fluid or blood coming from your incision. ??? Your incision feels warm to the touch. ??? You have pus or a bad smell coming from your incision. ??? You have a fever. Get help right away if: ??? Your incision breaks open. ??? You have red, painful, or swollen areas in one or both legs. ??? You have severe pain that does not get better with medicine. Summary ??? After your procedure, it is common to have pain and swelling in your lower leg. ??? Check your incision area every day for signs of infection, such as more redness or swelling. ??? Do not use the injured limb to support your full body weight until your health care provider says that you can. You may be able to put some weight on your leg (partial weight-bearing). Use crutches or a walker as told by your health care provider. ??? Ask your health care provider what activities are safe for you while you recover. It is important to do physical therapy to regain strength and range of motion in your leg. ??? Keep all follow-up visits. This is important. This information is not intended to replace advice given to you by your health care provider. Make sure you discuss any questions you have with your health care provider. Document Revised: 10/07/2020 Document Reviewed: 10/07/2020 [employer] Patient Education ?? 2021 [employer] Follow Up Care 03/15/2023 12:18:07 With:Oscar Mendes Address: [address] [place] [id number] [facility] (1) When:05/06/2023 10:44:00 Comments:Please call the office and make a post-op appointment in 3 weeks. Surgical operation note * Oscar Mendes MD: PERFORM Event Display: Operative Report Authored Date: Date of Surgery:?April 14, 2023 ?? 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 Post-operative diagnosis:?Same ?? Operative Procedure:? Exchange??IM nail??left tibia Debridement??nonunion??and placement??of??biologic left tibia? Attending Surgeon:? Oscar Mendes MD? Field Marketing Manager:?Torsten Zabala MD? Indications:?The patient is a??67-year-old??white male??who does smoke??and sustained??a fracture??of his left??tibia.?? This??was initially??a closed but comminuted fracture.?? Over??the course of the next??seven months he has developed increasing??pain??in the leg.?? He has??had??no signs or symptoms??of infection??but??today??did show??up with??increased swelling??and some??erythema??distally.?His sed rate??was??23 but his CRP was??0.7. ? Operative technique:?? The operative site was marked in the holding area. The consent was verified and all questions were answered.? The patient was taken to the operating room and placed in a??supine??position. After satisfactory general anesthesia, a timeout procedure was conducted to ensure that all persons of the operative team concurred as to the nature of the procedure, laterality, allergies, antibiotics and post-operativeplan.? The left lower??extremity?? was prepped and draped in a sterile fashion. ??Began by??making an incision through??the previous infrapatellar??incision.?? We dissected??through the??scar tissue??down to the tendon.?? We incised the tendon vertically.?? We??used a combination of fluoroscopy??and??curette to probe find??the proximal into the nail.?? We then began??removing the locking??screws.?? Using??the previous incisions,??we used a combination??of touch??and fluoroscopy??to identify??the screws??and removed them.?? We placed??a curette??and one of the distal screws??in order??to control??rota tion??and length??when we attached the??extraction bolt.?? We then??placed??a guidewire??down the??nail under fluoroscopic??guidance.?? We used??the initial??Reamer??to ream??down??on top of that.?? A curette??and small rongeur??were used??to help??clear way??the top of the nail.?? We then??attached the extraction bolt??to that.?? The nail??was removed??without??much??difficulty.?? We then??placed a??5 mm blocking screw??on the lateral??side??of the two proximal fragment??near the fracture site??to help??translate the proximal??fragment??more??laterally.?? We placed a guidewire down the canal??under fluoroscopic??guidance.?? We reamed??to a??12.5 mm size.?? 11 x 375 mm Synthes??IM nail??wasplaced??down the canal??and??we purposely??advanced it more distally??by at least??half a cm.?? We used freehand??technique to place two distal locking??screws??through??separate holes??than the initial screws.?? We then backslapped??the tibia??fairly hard to try??to compress it.?? We then??placed??a single??screw in the dynamic hole??proximally.?? We used the compression device??inside the nail??to compress??that even further.?? We placed??a static??locking screw??proximally.?? We then??openedthe fracture site??directly.?? We removed??what appeared to be??piece of displaced bone??anteriorly.?? We used a curette to clean??out??the fracture site??and??irrigated.?? Again no evidence??of infection??was found.?? We??did send some??of??this for culture.?? We also??sent??some of the 1st reamings??of the canal as well??as??tissue??from the membrane of the nail??for culture.?? We irrigated??this wound with??normal saline??and packed??it with??5 cc of??ViviGen.?? We placed an??additional proximal??locking screw??using??the targeting??jig??and a single??anterior-posterior screw??in the distal fragment.?? Our alignment??and length??as well??as??rotation??appeared to be good.?? The wounds were then??irrigated with normal saline??and closed??using??0 Vicryl, 2-0 Monocryl and 3-0??nylon??suture.?? A sterile dressing??was applied.?? The patient was awakened??and taken to recovery room??in??stable condition.?? Her? Attending attestation:?I was present for the villatoro and essential portion of the case which included the entire case except??for closure??. I actively supervised and/or participated in the villatoro portions of the case and was immediately available for the closure and placement of the dressing. ?? Specimens:? none? Drains:? none EBL:? 100 cc? Sponge Count:? Correct? Findings:?No evidence of purulence ? Post-operative plan:?I will allow him??to weight bear as tolerated immediately.?? I will see him back??in about??three weeks??for suture removal.?? We do not plan??to send him??home with??antibiotics??unless??cultures come??back later.?? I will discharge him when??he is cleared??PT.? Weightbearing status:?WBAT ? DVT prophylaxis:?None? Oscar Mendes MD Department of Orthopedic Surgery This dictation was completed using voice recognition software. Correctional Cook variances may occur. Electronically signed by:Oscar Mendes MD 04/14/23 13:01 History and physical note * Oscar Mendes MD: PERFORM Event Display: History and Physicals Authored Date: [id number] Chief Complaint INSERTION INTRAMEDULLARY NAIL TIBIA (LEFT,EXCHANGE). Care Team Primary Care Physician??- NO REF PHYS, NO REF PHYS Admitting Physician - Oscar Mendes MD Attending Physician - Oscar Mendes MD Arrival Date/Time??- 04/14/2023 06:09:00 History of Present Illness The patient is a??67-year-old??white male??who sustained??a fracture??of his??left tibia??and underwent IM nail??fixation??in September.?? Since??that time, he has had increasing pain??and now swelling??and redness??in the leg.?? Today, he presents with??erythema and swelling??of the lower tibia.?? 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 The patient is??a smoker.?? He has also had??a nephrectomy in the past. ? Review of Systems He denies fever, chills, nausea, vomiting, shortness of breath, chest??pain.? Physical Exam Vitals & Measurements T:??97.3?F?? HR:??74?? RR:??20?? BP:??138/82?? SpO2:??95%?? WT:??98.4??kg?? General:?well developed, well-nourished white male in no acute distress HEENT:?normocephalic, atraumatic head;?pupils equal, round Neck:?soft and supple;?? negative Lhermitte???s and Spurling???s Psychiatric:?normal mood and affect; alert and oriented x 3 Chest:?normal respiratory pattern CVS:?pulses 2+ and equal bilaterally, regular rate and rhythm Neurologic:?He has good sensation??leg distally. ?? Musc:?He has pain at the knee??although??knee range of motion??is good.?? He has pain near the ankle??which??I think is due??to swelling. ? Skin:?There is no drainage, but??there is erythema and swelling??in the distal part of the leg. ? Radiographs??of the tibia??demonstrate??a nonunion??with??some??lucency at the fracture??soon? Assessment/Plan Orders: ceFAZolin, 2 g, IVPB, Unscheduled, Start Date: 04/14/23 7:56:00 UX ARCHITECT, Duration: 14 Days, Stop date 04/28/23 7:55:00 UX ARCHITECT, Routine Consent, Exchange Intramedullary Nail Left Tibia Education/Teaching Education/Teaching FL C Arm Greater Than 1 Hour Initiate Plan, Orthopedic/Trauma Pre Admit 1 Initiate Plan, Orthopedic/Trauma Pre Admit 2. Initiate Ortho/Trauma Preadmit 1 if not already done Initiate Plan, Initiate Orthopedic/Trauma Pre Op Orders. Initiate Preadmit 1 & 2 if not alreadydone. Notify Provider, Notify anesthesia of abnormal results. Call to abnormal results to surgeon. Nursing Communication Order, Initiate Anesthesia Preadmission 1 Orders Nursing Communication Order, If diabetic, instruct per Glycemic Management Pre Admission orders Nursing Communication Order, Stop Aspirin _3 or more___ prior to surgery. Nursing Communication Order, Other Medication Instructions - Nursing Communication Order, Stop NSAIDs __3 or more____ days prior to surgery. Nursing Communication Order, Stop Vitamins, Herbs, Minerals, Fish Oil and glucosamine 7 days prior to surgery. Nursing Communication Order, Stop weight loss supplements (including phentermine) 10 days prior to surgery. Nursing Communication Order, Initiate Anesthesia Preadmission 2 Orders. Initiate Anesthesia Preadmit 1 if not already done. Nursing Communication Order, Initiate Anesthesia Pre Op Orders. Initiate Preadmission Anesthesia Orders if not initiated. ? 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 Our plan today will be??to remove the IM nail??and replace??it with an antibiotic coated nail.?? We will send??cultures.?? I will keep??him in the hospital until??cultures are back??and??we can figure??out??what to??put him??on??for IV antibiotics.? Problem List/Past Medical History Ongoing Distal radius fracture, left Tibia/fibula fracture Tobacco use Historical No qualifying data Procedure/Surgical History ???NASAL SURGERY (04/03/2023)???IMN Left Tibia (09/07/2022)???Appendectomy???Bone graft of radius and ulna???Nephrectomy Medications No qualifying data available Allergies No Known Medication Allergies Social History Social History Alcohol ??Denies Substance Abuse ??Current, Type: Marijuana. ??1-2 times per month Tobacco ??Smoking Status: Current every day smoker. ??Smokeless tobacco use: Smokeless tobacco user within last 30 days. ??Former smoker last 30 days: Former smoker < 30 days. ?Type: Cigarettes. ??Tobacco use per day: 10 or more cigarettes (1/2 pack or more)/day in last 30 days. Lab Results No qualifying data available Diagnostic Results No clinical data available for specified time frame. Electronically signed by:Oscar Mendes MD 04/14/23 08:25 Patient Care team information Care Team Personnel Name: Lex Keating Position: Inpatient-Midlevel Member Role: Nurse Practitioner Address: Address: [facility] Name: NO REF PHYS, NO REF PHYS Position: 2 Restricted Providers Member Role: Primary Care Physician Name: Vilma Chamorro Position: Nurse (MAR) Member Role: Nurse Name: Pee Senior Position: Patient Post Office Markup Clerk (E) Member Role: Nurse Field Marketing Manager Name: Almita Villeda Position: Patient Post Office Markup Clerk (E) Member Role: Nurse Field Marketing Manager Name: Chris Cornell RN Position: Nurse (MAR) Member Role: Nurse Name: Oscar Mendes MD Position: PX Physician - Orthopedics Med Service: [facility] Member Role: Ordering Physician Address: Address: [address] Care Team Related Persons Name: LIAT BROOKS Name: PIERRE FELIZ
== END 2023-07-30 14:27 | disposition left against medical advice (07) | DRG 392 ==
LOC: ER 12:11 → MEDSURG 17:12
PROVIDERS: Admitting Provider Student in an Organized Health Care Education/Training Program; Emergency Provider Family Medicine; PCP Family Medicine; Visit Provider Student in an Organized Health Care Education/Training Program
DX: K29.70 Gastritis, unspecified, without bleeding (principal); E87.0 Hyperosmolality and hypernatremia; E87.20 Acidosis, unspecified; N17.9 Acute kidney failure, unspecified; K21.9 Gastro-esophageal reflux disease without esophagitis; E86.0 Dehydration; E87.5 Hyperkalemia; F15.10 Other stimulant abuse, uncomplicated; Z72.0 Tobacco use; N18.9 Chronic kidney disease, unspecified; Z85.528 Personal history of other malignant neoplasm of kidney; Z90.5 Acquired absence of kidney
CPT/HCPCS: 36415; 51702; 74176; 80048; 80053; 80061; 80306; 80307; 81001; 82436; 82570; 82607; 82746; 83036; 83540; 83550; 83605; 83690; 83735; 84100; 84133; 84300; 84443; 85025; 85999; 86403; 86677; 87040; 87806; 94664; 96361; 96372; 96374; 96375; 99214; 99285; C9113; J1200; J1644; J2270; J2405; J7030; J7042; J7070; J7799

== ENCOUNTER 2023-08-03 20:17 | Inpatient (IN) | payer MEDICARE, SELFPAY ==
[2023-08-03 20:23] VITALS: BP 123/100; PULSE 102; RESP 16; TEMP 35; BMI 21.1
[2023-08-03 21:03] VITALS: BP 98/66; PULSE 98; RESP 16; O2SAT 95
[2023-08-03 21:05] LABS: Basophils % 0.2 %; Eosinophils % 0.1 %; Hematocrit 62.3 % (37-53); Lymphocytes % 6.2 %; Mean Corpuscular HGB Conc 33.4 g/dL (30-55); Mean Corpuscular Hemoglobin 31.7 pg (27-33); Mean Corpuscular Volume 94.8 fl (82-101); Mean Platelet Volume 13.4 fL (7.4-10.4); Monocytes # 0.4 10^3/uL (0.2-0.9); Monocytes % 2.5 %; Neutrophils # 14.98 10^3/uL (1.8-7.7); Neutrophils % 90.1 %; Nucleated Red Blood Cells % 0 %; Platelet Count 399 10^3/cmm (157-399); Red Blood Count 6.57 10^6/uL (3.85-5.65); Red Cell Distribution Width 12.7 % (12.1-15.1); White Blood Count 16.61 10^3/uL (3.29-11.43)
[2023-08-03 21:16] LABS: INR 1.33 (0.8-1.2)
[2023-08-03 21:21] LABS: Alanine Aminotransferase 31 U/L (0-41); Albumin Level 4.7 g/dL (3.5-5.2); Alkaline Phosphatase 188 U/L (40-130); Anion Gap 38.1 (5-19); Aspartate Amino Transferase 15 U/L (0-40); Calcium 10.8 mg/dL (8.5-10.5); Carbon Dioxide 20 mmol/L (22-29); Chloride 98 mmol/L (98-107); Creatinine Clr Calc Pharmacy 13.7446; Globulin 4.9 g/dL (1.3-4.6); Glomerular Filtration Rate 10.2 mL/min (90-130); Glucose 168 mg/dL (65-115); Potassium 4.1 mmol/L (3.5-5.1); Sodium 152 mmol/L (136-145); Total Protein 9.6 g/dL (6.6-8.7)
--- NOTE | 2023-08-03 21:30 | CTR_ITS ---
PROCEDURE INFORMATION: Exam: CT Head Without Contrast Exam date and time: 08/03/2023 10:04 PM Age: 67 years old Clinical indication: Pain; Headache; Additional info: Trauma/fall TECHNIQUE: Imaging protocol: Computed tomography of the head without contrast. Radiation optimization: All CT scans at this facility use at least one of these dose optimization techniques: automated exposure control; mA and/or kV adjustment per patient size (includes targeted exams where dose is matched to clinical indication); or iterative reconstruction. COMPARISON: [place] bone scan whole body* [id number] 04/12/2017 9:49 AM RADIATION DOSE METRICS: Total DLP (mGy-cm): 1109.6 FINDINGS: Brain: Subcortical and periventricular white matter changes consistent with small-vessel ischemic disease in the appropriate clinical setting. Small-vessel ischemic disease. Cerebral ventricles: No ventriculomegaly. Paranasal sinuses: Visualized sinuses are unremarkable. No fluid levels. Mastoid air cells: Visualized mastoid air cells are well aerated. Bones/joints: Unremarkable. No acute fracture. Soft tissues: Unremarkable. CT/CT head wo con* [id number] IMPRESSION: 1. No acute intracranial abnormality. 2. Small-vessel ischemic disease.
--- NOTE | 2023-08-03 21:30 | CTR_ITS ---
PROCEDURE INFORMATION: Exam: CT Cervical Spine Without Contrast Exam date and time: 08/03/2023 10:04 PM Age: 67 years old Clinical indication: Neck pain; Additional info: Trauma/fall TECHNIQUE: Imaging protocol: Computed tomography of the cervical spine without contrast. Radiation optimization: All CT scans at this facility use at least one of these dose optimization techniques: automated exposure control; mA and/or kV adjustment per patient size (includes targeted exams where dose is matched to clinical indication); or iterative reconstruction. COMPARISON: [place] bone scan whole body* [id number] 04/12/2017 9:49 AM RADIATION DOSE METRICS: Total DLP (mGy-cm): 619.2 FINDINGS: Bones/joints: No acute fracture. Normal alignment. No significant disc bulge or herniation. No severe spinal canal stenosis. No significant neural foraminal narrowing. Lungs: Lung apices are normal. Soft tissues: Unremarkable. CT/CT cervical spin wo con* [id number] IMPRESSION: No acute cervical spine fracture or listhesis.
--- NOTE | 2023-08-03 21:31 | XRR_ITS ---
PROCEDURE INFORMATION: Exam: XR Chest Exam date and time: 08/03/2023 10:13 PM Age: 67 years old Clinical indication: Pain; Chest pressure; Additional info: Weakness/fall TECHNIQUE: Imaging protocol: Radiologic exam of the chest. Views: 1 view. COMPARISON: CT chest abdpel w/*[id number] 07/22/2023 2:53 PM FINDINGS: Lungs: Moderately hyperinflated lungs. Mild linear scarring in the left lung base. Calcified hilar granulomas again noted. Pleural spaces: Unremarkable. No pleural effusion. No pneumothorax. Heart/Mediastinum: Unremarkable. No cardiomegaly. Bones/joints: Remote fracture deformity of the posterior left 4th-7th ribs. XR/XR chest 1V portable [id number] IMPRESSION: Moderate hyperinflation due to underlying emphysema. No confluent consolidation.
[2023-08-03 21:33] LABS: Osmolality Calculated 356 mOsm/kg (285-295)
[2023-08-03 21:34] LABS: Blood Urea Nitrogen 120 mg/dL (8-23); Lactic Sepsis W/Reflex 6.1 mmol/L (0.5-2.2)
[2023-08-03] MEDS: meropenem 1,000 MG in sodium chloride 0.9% (plus) 50 ML 100 MG IV (22:29)
[2023-08-03] MEDS: sodium chloride 0.9% 2,177.25 ML 2177.25 ML IV (22:38)
--- NOTE | 2023-08-03 22:43 | P.HP_ITS ---
Providers/Chief Complaint 2 Primary Care Provider: Jodie Marshall MD Chief Complaint: WEAKNESS History of Present Illness Ezequiel Davis is a 67 year old male who recently left A when endoscopy was recommended for his persistent nausea and vomiting, there was concern for gastritis, patient was upset because he was not able to drink soda anymore and he left the hospital, since his discharge she has been experiencing generalized weakness, fatigue, nausea and vomiting, family found him on the floor which prompted his visit to the ER for further evaluation, in the ER he has sepsis related to gastritis, CT abdomen pelvis showing gastritis, he has acute on chronic kidney disease, significant leukocytosis, hypothermia. General surgery has been consulted, he had received septic bolus along meropenem. Patient is stating that he used marijuana today and methamphetamine 3 days ago, he has not been able to eat much, anytime he tries to eat he would vomit, endorsing subjective fevers, stating that he does not have thermometer at home, endorsing rigors, chills, stating that he was so weak today that he could not bear his weight, fell on the floor and had no strength at all to get up on his feet he did not lose consciousness, he did not experience chest pain. Because of poor p.o. intake he has had no bowel movement in last few days Review of Systems 2 Const: Reports: chills, body aches, fatigue and malaise; Denies: fever(s) Eyes: Denies: change in vision ENMT: Denies: throat pain Card: Denies: chest pain Resp: Denies: dyspnea GI: Reports: abdominal pain, nausea and vomiting : Denies: flank pain Musc: Reports: extremity pain; Denies: neck pain Skin/Breast: Denies: rash Medications/Allergies Home Medications Medication Instructions Recorded Confirmed Last Taken Type sucralfate 1 gram tablet (Carafate) 1 g PO TID 30 days #90 tabs 07/17/23 07/27/23 07/27/23 Rx pantoprazole 40 mg tablet,delayed 40 mg PO BID #60 tabs 07/21/23 07/27/23 07/27/23 Rx release (Protonix) ondansetron 4 mg disintegrating 4 mg PO QID PRN nausea and 07/25/23 07/27/23 07/27/23 Rx tablet vomiting #30 tabs sucralfate 100 mg/mL oral 10 ml PO BID 30 days #840 mL 07/25/23 07/27/23 07/27/23 Rx suspension Allergies Allergy/AdvReac Type Severity Reaction Status Date / Time fentanyl Allergy ALGY-Rash Verified 07/25/23 13:18 morphine Allergy ALGY-Hives Verified 07/25/23 13:18 oxycodone Allergy unknown Verified 07/25/23 13:18 PFSH Acute 2 PFSH: Medical History Single kidney Broken fibula Broken tibia DJD (degenerative joint disease) H/O renal cell cancer Surgical History Hx of colonoscopy 2005 [place] H/O laceration repair (05/22/20) H/O hand surgery S/p nephrectomy Left-sided nephrectomy H/O skin graft Family History Father Cancer stomach Social History Smoking and tobacco/nicotine status: current every day tobacco/nicotine user cigarettes Alcohol intake: never Vitals/I&O/Wt Last Vital Signs Temp 95.0 F L 08/03/23 20:23 Pulse 98 08/03/23 21:03 Resp 16 08/03/23 21:03 BP 98/66 08/03/23 21:03 Pulse Ox 95 08/03/23 21:03 Weight last 48 hrs Weight 72.575 kg Physical Exam 2 Narrative: Patient is awake and alert GCS 15 Nonfocal neuroexam Hypothermic Has Stuart hugger's Hypertensive Currently on room air Abdomen soft No sign of peritonitis guarding or rigidity No audible stridor or wheezing Data 08/03/23 20:54 08/03/23 20:54 Micro: Microbiology 08/03/23 20:57 Blood Culture - Preliminary Blood SPECIMEN COLLECTED 08/03/23 20:54 Blood Culture - Preliminary Blood SPECIMEN COLLECTED A&P Assessment and plan (1) Amphetamine abuse, episodic: (2) GERD (gastroesophageal reflux disease): Qualifiers: Esophagitis presence: esophagitis presence not specified Qualified Code(s): K21.9 - Gastro-esophageal reflux disease without esophagitis (3) Gastritis: Qualifiers: Chronicity: acute Gastritis bleeding: without bleeding Gastritis type: unspecified gastritis Qualified Code(s): K29.00 - Acute gastritis without bleeding (4) Nausea and vomiting: (5) Abdominal pain: Qualifiers: Abdominal location: epigastric Qualified Code(s): R10.13 - Epigastric pain (6) Acute renal failure: (7) Single kidney: (8) Hypernatremia: (9) Dehydration: (10) High anion gap metabolic acidosis: (11) Sepsis: Plan Sepsis Criteria met with hypothermia tachycardia tachypnea leukocytosis high lactic acid endorgan damage Patient has been given septic bolus He is has Stuart hugger's He is hypertensive No sign of septic shock CT abdomen pelvis showing gastritis Start Zosyn He has received meropenem in the ER Blood cultures taken No sepsis induced encephalopathy No skin mottling noted Patient will need an EGD, general surgery consulted I will keep patient n.p.o. start sucralfate and Protonix There is no sign of gastric ulcer perforation I do not see air under the diaphragm on x-ray Acute on chronic kidney disease related to dehydration Anticipate improvement with IV fluid Hypernatremia related to dehydration Start dextrose normal saline at 75 mill per hour Next BMP will be at 4 AM Polysubstance abuse Drug screen Patient Dors to THC and meth Full code N.p.o. DVT prophylaxis on hold in anticipation of possible EGD in the morning Attestations 2 Medical Necessity Statement*: More than 2 midnights anticipated Diagnoses Amphetamine abuse, episodic F15.10 Gastroesophageal reflux disease, unspecified whether esophagitis present K21.9 Esophagitis presence: esophagitis presence not specified Gastritis K29.00 Chronicity: acute Gastritis bleeding: without bleeding Gastritis type: unspecified gastritis Nausea and vomiting R11.2 Epigastric pain R10.13 Abdominal location: epigastric Acute renal failure N17.9 Single kidney Z90.5 Hypernatremia E87.0 Dehydration E86.0 High anion gap metabolic acidosis E87.29 Sepsis A41.9
--- NOTE | 2023-08-03 22:43 | CTR_ITS ---
PROCEDURE INFORMATION: Exam: CT Abdomen And Pelvis Without Contrast Exam date and time: 08/03/2023 10:53 PM Age: 67 years old Clinical indication: Abdominal pain; Acute; Prior surgery; Surgery date: 6+ months; Surgery type: Nephrectomy; Additional info: Syncope, lactic TECHNIQUE: Imaging protocol: Computed tomography of the abdomen and pelvis without contrast. Radiation optimization: All CT scans at this facility use at least one of these dose optimization techniques: automated exposure control; mA and/or kV adjustment per patient size (includes targeted exams where dose is matched to clinical indication); or iterative reconstruction. COMPARISON: CT abdomen pelvis [facility] [id number] 07/27/2023 1:31 PM RADIATION DOSE METRICS: Total DLP (mGy-cm): 465.1 FINDINGS: Liver: Normal. No mass. Gallbladder and bile ducts: Normal. No calcified stones. No ductal dilation. Pancreas: Normal. No ductal dilation. Spleen: Normal. No splenomegaly. Adrenal glands: Normal. No mass. Kidneys and ureters: The left kidney is absent. No abnormal soft tissue in the nephrectomy bed. Stomach and bowel: There is apparent circumferential bowel wall thickening of the mid stomach with adjacent fat stranding which is nonspecific but can be seen in the setting of gastritis. Appendix: No evidence of appendicitis. Intraperitoneal space: Unremarkable. No free air. No significant fluid collection. Vasculature: Unremarkable. No abdominal aortic aneurysm. Lymph nodes: Unremarkable. No enlarged lymph nodes. Urinary bladder: Unremarkable as visualized. Reproductive: Unremarkable as visualized. Bones/joints: Unremarkable. No acute fracture. Soft tissues: See Kidneys and ureters finding. CT/CT abdomen pelvis [facility] [id number] IMPRESSION: 1. The left kidney is absent. No abnormal soft tissue in the nephrectomy bed. 2. There is apparent circumferential bowel wall thickening of the mid stomach with adjacent fat stranding which is nonspecific but can be seen in the setting of gastritis.
[2023-08-03 22:48] LABS: Reflex Lactate Order REFLEX LACTIC ORDERD
[2023-08-03 22:57] VITALS: BP 165/122; PULSE 95; RESP 16; O2SAT 100
[2023-08-03 23:01] LABS: Creatine Phosphokinase 84 U/L (39-308)
--- NOTE | 2023-08-03 23:28 | W.ED.GENADLT ---
HPI - General Adult General: Chief complaint: Fall Stated complaint: WEAKNESS Time Seen by Provider: 08/03/23 20:28 History of Present Illness: 67-year-old male presents emergency department via EMS personnel with complaints of increased weakness and fatigue and abdominal pain. Patient was recently admitted to the hospital on 07/27/2023 and was scheduled to have a EGD for concerns of severe gastritis and prior to the procedure the patient left AGAINST MEDICAL ADVICE on 07/26/2023. Patient returns today with complaints of 6 out of 10 abdominal pain to his epigastric region. He states that he was at home when he attempted to use the bathroom and became too weak and fell onto the floor. The patient was unable to get off the floor for a significant amount of time. He does appear acutely ill he is awake alert and oriented x 4. Patient does have a history of renal cell carcinoma with a left nephrectomy. Associated symptoms: Reports malaise and nausea Review of Systems General: Reports: 10 or more systems reviewed and unremarkable except in HPI and below Const: Reports: body aches, change in weight, fatigue and malaise GI: Reports: abdominal pain and nausea : Reports: oliguria Musc: Reports: back pain PFSH ED PFSH: Medical History (Updated 07/28/23 @ 12:18 by Darren Palacios MD) Single kidney Broken fibula Broken tibia DJD (degenerative joint disease) H/O renal cell cancer Surgical History (Updated 07/27/23 @ 15:32 by Darren Palacios MD) Hx of colonoscopy 2005 [place] H/O laceration repair (05/22/20) H/O hand surgery S/p nephrectomy Left-sided nephrectomy H/O skin graft Family History Father Cancer stomach Social History Smoking and tobacco/nicotine status: current every day tobacco/nicotine user cigarettes Alcohol intake: never Physical Exam Narrative: EXAM NARRATIVE: Constitutional: Frail, ill-appearing, in obvious distress. Unkept. Vital signs reviewed as documented. HENMT: Normocephalic, atraumatic. External ears normal appearance without drainage. Nose without drainage, normal appearance. Mucus membranes moist. Neck is supple, No jugular venous distension, trachea is midline, . No lymphadenopathy. No meningeal signs. Flexion, extension and lateral rotation is without pain. Eyes: Pupils are equal, round, reactive to light and accommodation. No scleral icterus. Extra-ocular movement are intact. Thorax is symmetrical and with equal rise and fall with respirations. Resp: Lungs are clear to auscultation. No wheezes, rales, crackles or ronchi at present. Cardio: Sinus tachycardia on the monitor. Positive S1, S2. No appreciable murmurs, rubs or gallops. GI: Abdominal exam reveals normal bowel sounds to all quadrants. Soft, tender to palpation to the epigastric region. Extremity: Extremities are non-edematous and both femoral and pedal pulses are 2+ and equal bilaterally. Moves all extremities well, sensation in all extremities. Neuro: Alert and oriented x4, person, place, time and situation. Cranial nerves II through XII are grossly intact, there is no focal neurological deficits that I can appreciate at present. Sensation intact to all extremities. 2-point discrimination intact. Light touch intact to all extremities. Motor strength in the upper and lower extremities are equal and bilateral 5/5. Psych: Cooperative, calm, normal thought process, appropriate judgment. Skin: No lesions, rashes. No gross abnormalities noted. Cold to touch. Purpleish discoloration to the back and posterior legs and arms. Back: Symmetrical, no obvious deformity, No CVA tenderness Course Vital Signs: Vital signs: Vital Signs Temperature 95.0 F L 08/03/23 20:23 Pulse Rate 95 08/03/23 22:57 Respiratory Rate 16 08/03/23 22:57 Blood Pressure 165/122 08/03/23 22:57 Pulse Oximetry 100 08/03/23 22:57 Oxygen Delivery Me thod Room Air 08/03/23 22:57 [facility] - General Adult Medical Decision Making Physical exam completed and documented I did obtain a CBC which demonstrated significantly elevated white blood cell count at 16.61, lactic acid was 6.1. Hemoglobin 20.8 hematocrit 62.3 consistent with hemoconcentration. His INR was elevated at 1.33. Patient's sodium is 152, bicarb is 20, anion gap of 38. BUN of 120, creatinine of 5.6 acute renal failure noted most likely secondary to dehydration his previous creatinine level was 1.7. His GFR today is 10.2 and previously was 40.3. His blood glucose is 168. His calcium level today is 10.8 previously was 9.2 I suspect this may be resultant from his immobility after his fall and his hemoconcentration. I did obtain a CT of the head and cervical spine without acute findings. I did complete a CT abdomen pelvis without contrast because of the patient's decreased renal function and it did show findings consistent with gastritis and circumferential bowel wall thickening of the mid stomach with adjacent fat stranding. I did provide the patient IV fluid hydration consistent with the sepsis protocol as well as IV antibiotics and contacted the hospital physician for admission to the medical floor. At the hospitalist request I also consulted the general surgeon. Differential Diagnosis Differential diagnosis includes sepsis, dehydration, acute kidney injury, electrolyte abnormality, bowel perforation, pancreatitis, gastroenteritis, hepatic failure, intracranial bleed, vertebral fracture, Medical Records I reviewed the patient's medical records. Lab Data I reviewed the patient's lab results. 08/03/23 20:54 08/03/23 20:54 Radiology Impressions Cervical Spine CT 08/03/23 21:30 IMPRESSION: No acute cervical spine fracture or listhesis. Head CT 08/03/23 21:30 IMPRESSION: 1. No acute intracranial abnormality. 2. Small-vessel ischemic disease. Chest X-Ray 08/03/23 21:31 IMPRESSION: Moderate hyperinflation due to underlying emphysema. No confluent consolidation. Abdomen/Pelvis CT 08/03/23 22:43 IMPRESSION: 1. The left kidney is absent. No abnormal soft tissue in the nephrectomy bed. 2. There is apparent circumferential bowel wall thickening of the mid stomach with adjacent fat stranding which is nonspecific but can be seen in the setting of gastritis. Laboratory Results WBC 16.61 10^3/uL (3.29-11.43) H 08/03/23 20:54 RBC 6.57 10^6/uL (3.85-5.65) H 08/03/23 20:54 Hgb 20.80 g/dL (11.27-16.99) H 08/03/23 20:54 Hct 62.3 % (37-53) H 08/03/23 20:54 MCV 94.8 fl (82-101) 08/03/23 20:54 MCH 31.7 pg (27-33) 08/03/23 20:54 MCHC 33.4 g/dL (30-55) 08/03/23 20:54 RDW 12.7 % (12.1-15.1) 08/03/23 20:54 Plt Count 399 10^3/cmm (157-399) 08/03/23 20:54 MPV 13.4 fL (7.4-10.4) H 08/03/23 20:54 Neut % (Auto) 90.1 % 08/03/23 20:54 Lymph % (Auto) 6.2 % 08/03/23 20:54 Cannon % (Auto) 2.5 % 08/03/23 20:54 Eos % (Auto) 0.1 % 08/03/23 20:54 Baso % (Auto) 0.2 % 08/03/23 20:54 Neut # (Auto) 14.98 10^3/uL (1.8-7.7) H 08/03/23 20:54 Lymph # (Auto) 1.0 10^3/uL (0.8-4.8) 08/03/23 20:54 Cannon # (Auto) 0.4 10^3/uL (0.2-0.9) 08/03/23 20:54 Eos # (Auto) 0.0 10^3/uL (0.0-0.8) 08/03/23 20:54 Baso # (Auto) 0.0 10^3/uL (0.0-0.1) 08/03/23 20:54 Nucleated RBC % (auto) 0 % 08/03/23 20:54 Nucleated RBCs # 0.0 /100WBC 08/03/23 20:54 PT 16.90 SECONDS (12.1-14.9) H 08/03/23 20:54 INR 1.33 (0.8-1.2) H 08/03/23 20:54 Sodium 152 mmol/L (136-145) H 08/03/23 20:54 Potassium 4.1 mmol/L (3.5-5.1) 08/03/23 20:54 Chloride 98 mmol/L (98-107) 08/03/23 20:54 Carbon Dioxide 20 mmol/L (22-29) L 08/03/23 20:54 Anion Gap 38.1 (5-19) H 08/03/23 20:54 BUN 120 mg/dL (8-23) H* D 08/03/23 20:54 Creatinine 5.6 mg/dL (0.7-1.2) H* 08/03/23 20:54 GFR Calculation 10.2 mL/min (90-130) L 08/03/23 20:54 Glucose 168 mg/dL (65-115) H 08/03/23 20:54 Calculated Osmolality 356 mOsm/kg (285-295) H 08/03/23 20:54 Lactic Acid 6.1 mmol/L (0.5-2.2) H* 08/03/23 20:54 Calcium 10.8 mg/dL (8.5-10.5) H 08/03/23 20:54 Total Bilirubin 1.0 mg/dL (0.15-1.2) 08/03/23 20:54 AST 15 U/L (0-40) 08/03/23 20:54 ALT 31 U/L (0-41) 08/03/23 20:54 Alkaline Phosphatase 188 U/L (40-130) H 08/03/23 20:54 Creatine Kinase 84 U/L (39-308) 08/03/23 20:54 Total Protein 9.6 g/dL (6.6-8.7) H 08/03/23 20:54 Albumin 4.7 g/dL (3.5-5.2) 08/03/23 20:54 Globulin 4.9 g/dL (1.3-4.6) H 08/03/23 20:54 All radiology interpretation(s) finalized by discharge Critical Care Time Critical Care Time: Critical Care Time: Yes Total Critical Care Time: 60 Attestation: The patients was emergently evaluated as this patient's presentation and case had a high probability of a clinically significant, sudden, or life threatening deterioration of this patient's initial critical presentation or condition which required my full and direct attention, intervention and personal management. Discharge Plan Discharge Admit Provider: Cesario De La Cruz Prescriptions: No Action sucralfate [Carafate] 1 gram tablet 1 g PO TID 30 Days Qty: 90 0RF sucralfate 100 mg/mL suspension 10 ml PO BID 30 Days Qty: 840 0RF ondansetron 4 mg tablet,disintegrating 4 mg PO QID PRN (Reason: nausea and vomiting) Qty: 30 0RF pantoprazole [Protonix] 40 mg tablet,delayed release (DR/EC) 40 mg PO BID Qty: 60 0RF Coding Level of Care Code ED [employer] Specialist for Chantale Soria
[2023-08-04] VITALS (87 sets, daily range): BP systolic 120–165; BP diastolic 87–129; PULSE 89–107; RESP 9–29; TEMP 34.5–36.4; O2SAT 80–100; BMI 23.3
[2023-08-04 00:36] LABS: Amphetamines Screen Urine Positive (Negative); Barbiturates Screen Urine Negative (Negative); Benzodiazepines Screen Urine Negative (Negative); Cocaine Screen Urine Negative (Negative); Opiate Screen Urine Negative (Negative); PCP Screen Urine Negative (Negative); THC Screen Urine Negative (Negative)
[2023-08-04 01:05] LABS: Lactic Acid level (Lactate) 3.3 mmol/L (0.5-2.2)
[2023-08-04 02:37] LABS: Calcium 9.2 mg/dL (8.5-10.5); Carbon Dioxide 22 mmol/L (22-29); Chloride 108 mmol/L (98-107); Creatinine Clr Calc Pharmacy 15.0922; Glomerular Filtration Rate 11.3 mL/min (90-130); Glucose 92 mg/dL (65-115); Sodium 153 mmol/L (136-145)
[2023-08-04] MEDS: ondansetron 2 mg/ML SDV 2 mL 4 MG IVP ×2 (02:41→23:10)
[2023-08-04 02:58] LABS: Anion Gap 27.2 (5-19); Osmolality Calculated 355 mOsm/kg (285-295); Potassium 4.2 mmol/L (3.5-5.1)
[2023-08-04 03:00] LABS: Blood Urea Nitrogen 124 mg/dL (8-23)
[2023-08-04] MEDS: dextrose 5%-sod chloride 0.9% 1,000 ML 75 ML IV (03:53)
--- NOTE | 2023-08-04 04:45 | PC.NURSE ---
Unable to get the 2.25 gm dose of Zosyn ordered. Will have to wait for pharmacy to get here. Dr De La Cruz notified and he said to wait.
[2023-08-04 06:45] LABS: Basophils % 0.1 %; Hematocrit 57.9 % (37-53); Lymphocytes # 1.1 10^3/uL (0.8-4.8); Lymphocytes % 5.9 %; Mean Corpuscular HGB Conc 32.3 g/dL (30-55); Mean Corpuscular Hemoglobin 31.1 pg (27-33); Mean Corpuscular Volume 96.3 fl (82-101); Mean Platelet Volume 13.4 fL (7.4-10.4); Monocytes # 1.6 10^3/uL (0.2-0.9); Monocytes % 8.6 %; Neutrophils # 15.23 10^3/uL (1.8-7.7); Neutrophils % 83.8 %; Nucleated Red Blood Cells % 0 %; Platelet Count 321 10^3/cmm (157-399); Red Blood Count 6.01 10^6/uL (3.85-5.65); Red Cell Distribution Width 12.8 % (12.1-15.1)
[2023-08-04 07:07] LABS: Lactic Sepsis W/Reflex 2.4 mmol/L (0.5-2.2)
[2023-08-04 07:08] LABS: C Reactive Protein 41.2 mg/L (0.0-4.9); Calcium 9.2 mg/dL (8.5-10.5); Carbon Dioxide 20 mmol/L (22-29); Chloride 107 mmol/L (98-107); Creatinine Clr Calc Pharmacy 16.3524; Glomerular Filtration Rate 11.9 mL/min (90-130); Glucose 107 mg/dL (65-115); Magnesium 3.4 mg/dL (1.7-2.3); Sodium 153 mmol/L (136-145)
[2023-08-04 07:31] LABS: Anion Gap 30.2 (5-19); Blood Urea Nitrogen 127 mg/dL (8-23); Osmolality Calculated 357 mOsm/kg (285-295); Phosphorus 8.1 mg/dL (2.5-4.5); Potassium 4.2 mmol/L (3.5-5.1)
[2023-08-04] MEDS: pantoprazole 40 mg SDV IVP ×2 (08:16→16:52)
[2023-08-04] MEDS: sucralfate 1 gm Tablet PO ×2 (08:16→21:04)
[2023-08-04] MEDS: nicotine 14 mg Patch 1 PATCH TRANSDERMA (08:16)
[2023-08-04 08:29] LABS: Reflex Lactate Order REFLEX LACTIC ORDERD
--- NOTE | 2023-08-04 09:10 | P.CONIM_ITS ---
Providers/Reason For Consult 2 Consulting Physician/Specialty*: Dr. Jean Claude Gilliland, DO/General surgery Reason for Consult*: Abdominal pain nausea and vomiting Attending Physician: Cesario De La Cruz MD Primary Care Provider: Jodie Marshall MD History of Present Illness History of Present Illness Ezequiel Davis is a 67 year old male who presents to the hospital with abdominal pain nausea and vomiting. He was recently in the hospital for acute gastritis but left AMA because he did not want to be n.p.o. for endoscopy, reportedly. He reports to me that he was having lower abdominal pain upon discharge but that pain has resolved. The pain was dull crampy and intermittent. The pain did not radiate. Nothing seems to make the pain better or worse. He has been having nausea and emesis but denies any hematemesis. He reports that he is passing flatus but has not had a bowel movement for 3 weeks. He has a history of methamphetamine use. General surgery was consulted for possible endoscopy Review of Systems 2 General: Reports: 10 or more systems reviewed and unremarkable except in HPI and below Medications/Allergies Home Medications Medication Instructions Recorded Confirmed Last Taken Type sucralfate 1 gram tablet (Carafate) 1 g PO TID 30 days #90 tabs 07/17/23 08/04/23 07/27/23 Rx ondansetron 4 mg disintegrating 4 mg PO QID PRN nausea and 07/25/23 08/04/23 07/27/23 Rx tablet vomiting #30 tabs sucralfate 100 mg/mL oral 10 ml PO BID 30 days #840 mL 07/25/23 08/04/23 07/27/23 Rx suspension pantoprazole 40 mg tablet,delayed 40 mg PO DAILY 08/04/23 08/04/23 Unknown History release Allergies Allergy/AdvReac Type Severity Reaction Status Date / Time fentanyl Allergy ALGY-Rash Verified 08/04/23 08:07 morphine Allergy ALGY-Hives Verified 08/04/23 08:07 oxycodone Allergy unknown Verified 08/04/23 08:07 Current Medications Generic Name Dose Route Start Last Admin Trade Name Freq PRN Reason Stop Dose Admin Dextrose/Sodium Chloride 1,000 mls @ 75 mls/hr 08/04/23 01:51 08/04/23 03:53 Dextrose 5%-Sod Chloride 0.9% IV 75 mls/hr .[id number] ALLEN Administration Nicotine 1 patch 08/04/23 09:00 08/04/23 08:16 Nicotine 14 Mg Patch TRANSDERMA 1 patch DAILY ALLEN Administration Ondansetron HCl 4 mg 08/04/23 01:51 08/04/23 02:41 Ondansetron 2 Mg/Ml Sdv 2 Ml IVP 4 mg Q6H PRN Administration NAUSEA AND VOMITING Pantoprazole Sodium 40 mg 08/04/23 09:00 08/04/23 08:16 Pantoprazole 40 Mg Sdv IVP 40 mg BID ALLEN Administration Sucralfate 1 gm 08/04/23 09:00 08/04/23 08:16 Sucralfate 1 Gm Tablet PO 1 gm TID ALLEN Administration PFSH Acute 2 PFSH: Medical History Single kidney Broken fibula Broken tibia DJD (degenerative joint disease) H/O renal cell cancer Surgical History Hx of colonoscopy 2005 [place] H/O laceration repair (05/22/20) H/O hand surgery S/p nephrectomy Left-sided nephrectomy H/O skin graft Family History Father Cancer stomach Social History Smoking and tobacco/nicotine status: current every day tobacco/nicotine user cigarettes Alcohol intake: never Vitals/I&O/Wt Last Vital Signs Temp 97.4 F L 08/04/23 04:00 Pulse 99 08/04/23 08:30 Resp 14 08/04/23 08:30 BP 145/107 08/04/23 08:30 Pulse Ox 96 08/04/23 08:12 O2 Del Method Room Air 08/04/23 08:12 08/03/23 08/04/23 08/04/23 22:59 06:59 14:59 Intake Total 2227.25 / 2227.25 120 / 120 Output Total 200 / 200 Balance 2027.25 / 7.25 120 / 120 Weight last 48 hrs Weight 177 lb 6.4 oz Weight 177 lb 6.4 oz Weight 160 lb Physical Exam 2 Narrative: General : Patient is well developed , no acute distress, oriented x3 Head : Normal cephalic, a-traumatic. Ears : Pinnae and external canal are normal. Hearing is normal. Eyes : PERRLA, Sclera and injection are normal. No conjunctival discharge. Nose : Mucous membranes are without erythema. Throat : buccal mucosa is normal, gums are without significant recession or hypertrophy. Lungs : Equal chest rise bilaterally, no use of accessory muscles, trachea is midline. Cor : Rate and rhythm are normal. Abdomen: Soft, ND, NT, no g/r/m Extremities : No edema, no cyanosis or clubbing, dorsalis pedis pulses are present bilaterally, non-tender to palpation of calves. Upper extremities are normal bilaterally. Back : non-tender to palpation, no CVA tenderness. Neuro : CN II - XII intact, Upper and lower extremities have equal and full strength Urinary Catheter Management: Mcgraw: Cath Placed During This Visit: yes Reason for Continuing Indwelling Catheter: Accurate Measurement of Urinary Output in Critically Ill Patients Urinary Catheter Date of Insertion: 08/04/23 Urinary Catheter Time of Insertion: 00:10 Data 08/04/23 06:23 08/04/23 06:23 Micro: Microbiology 08/03/23 20:57 Blood Culture - Preliminary Blood SPECIMEN COLLECTED 08/03/23 20:54 Blood Culture - Preliminary Blood SPECIMEN COLLECTED A&P Assessment and plan (1) Gastritis: Qualifiers: Chronicity: acute Gastritis bleeding: without bleeding Gastritis type: unspecified gastritis Qualified Code(s): K29.00 - Acute gastritis without bleeding (2) Nausea and vomiting: (3) GERD (gastroesophageal reflux disease): Qualifiers: Esophagitis presence: esophagitis presence not specified Qualified Code(s): K21.9 - Gastro-esophageal reflux disease without esophagitis Plan IV Protonix 40 mg twice daily Sucralfate EGD The risks and benefits of the procedure, including bleeding, infection, intestinal perforation requiring surgery, missed lesion were explained to the patient. The patient is understanding of the risks and wishes to proceed. Medical management per hospitalist Coding Level of Care Code 30534 Diagnoses Gastritis K29.00 Chronicity: acute Gastritis bleeding: without bleeding Gastritis type: unspecified gastritis Nausea and vomiting R11.2 Gastroesophageal reflux disease, unspecified whether esophagitis present K21.9 Esophagitis presence: esophagitis presence not specified
--- NOTE | 2023-08-04 11:45 | P.PN_ITS ---
Subjective 2 Subjective: He reports he is feeling thirsty. He is awaiting EGD and currently is NPO. He is intermittently spitting regurgitating up pink-colored gastric secretions and content. Denies abdominal pain. Denies ever injection recreational drug use. Confirms methamphetamine use but states he smokes a small amount of it. Encouraged him complete abstinence, discussed risks of amphetamine use including organ ischemia. He verbalized understanding, states intends not to use it anymore and that it will not be a problem for him to stop. Vitals/I&O/Wt Last Vital Signs Temp 97.4 F L 08/04/23 04:00 Pulse 101 H 08/04/23 11:00 Resp 20 H 08/04/23 11:00 BP 150/129 08/04/23 11:00 Pulse Ox 97 08/04/23 10:30 O2 Del Method Room Air 08/04/23 08:12 08/03/23 08/04/23 08/04/23 22:59 06:59 14:59 Intake Total 2227.25 / 2227.25 120 / 120 Output Total 200 / 200 Balance 7.25 / 7.25 120 / 120 Weight last 48 hrs Weight 80.467 kg Weight 80.467 kg Weight 72.575 kg Physical Exam 2 Narrative: On revisit after EGD he is sleepy, waking up to voice. Sluggish responses, but converses. Intermittently vomiting up pink secretions into a basin. Const: COMMON NORMALS: patient oriented x3 and alert GENERAL APPEARANCE: c ooperative ORIENTATION/CONSCIOUSNESS: Yes awake HENMT: COMMON NORMALS: oropharynx normal Neck/C-Spine: COMMON NORMALS: no JVD Resp: COMMON NORMALS: normal respiratory effort and clear to auscultation bilaterally AUSCULTATION: clear to auscultation bilaterally Cardio: COMMON NORMALS: no JVD, regular rhythm, S1 normal heart sound present, S2 normal heart sound present and No murmurs present (Cardio) RHYTHM: regular rhythm HEART SOUNDS: S1 normal heart sound present and S2 normal heart sound present GI: COMMON NORMALS: Normal to inspection, nondistended, normoactive bowel sounds present, Soft to palpation and non-tender PALPATION: Yes Soft to palpation Extremity: COMMON NORMALS: no joint enlargement and no pedal edema Neuro: COMMON NORMALS: patient oriented x3 and moves all extremities S ENSORIUM/ORIENTATION: Yes alert Skin: COMMON NORMALS: no rashes or lesions noted GENERAL SKIN EXAM: no rashes or lesions noted Urinary Catheter Management: Mcgraw: Cath Placed During This Visit: yes Reason for Continuing Indwelling Catheter: Accurate Measurement of Urinary Output in Critically Ill Patients Urinary Catheter Date of Insertion: 08/04/23 Urinary Catheter Time of Insertion: 00:10 Data 08/04/23 06:23 08/04/23 11:41 Micro: Microbiology 08/03/23 20:57 Blood Culture - Preliminary Blood SPECIMEN COLLECTED 08/03/23 20:54 Blood Culture - Preliminary Blood SPECIMEN COLLECTED A&P Assessment and plan (1) Amphetamine abuse, episodic: (2) GERD (gastroesophageal reflux disease): Qualifiers: Esophagitis presence: esophagitis presence not specified Qualified Code(s): K21.9 - Gastro-esophageal reflux disease without esophagitis (3) Gastritis: Qualifiers: Chronicity: acute Gastritis bleeding: without bleeding Gastritis type: unspecified gastritis Qualified Code(s): K29.00 - Acute gastritis without bleeding (4) Nausea and vomiting: (5) Abdominal pain: Qualifiers: Abdominal location: epigastric Qualified Code(s): R10.13 - Epigastric pain (6) Acute renal failure: (7) Single kidney: (8) Hypernatremia: (9) Dehydration: (10) High anion gap metabolic acidosis: (11) Sepsis: Plan Severe pangastritis with gastric outlet obstruction: Reviewed surgery note. Reviewed EGD report. In the whole stomach, a moderate amount of clotted blood observed. Severe diffuse gastritis on EGD. Erythematous, edematous, friable gastritis with easy bleeding. Duodenum unremarkable. Per discussion with surgery bleeding was controlled with epinephrine. Findings were found to cause gastric outlet obstruction. As per surgery recommendation discussed with patient n.p.o. with parenteral nutrition. Requested PPN. Requesting dietitian consultation for renal PPN given acute renal failure. Continue IV hydration. Continue IV PPI twice daily. Acetaminophen as needed for pain, IV Dilaudid as needed for severe breakthrough. Esophagitis: As above Sepsis: Possible sepsis reported on presentation with severe leukocytosis, tachycardia. Without obvious source. Does have severe gastritis as above. Possible bacterial translocation from the stomach given severity of inflammation. Reassess for bacteremia. Has been vomiting, possibility of aspiration pneumonia. Seems that Zosyn was ordered only for 1 ordered, and he did not receive it. Ordered renally dosed Zosyn every 12 hours. Obtain UA. Follow-up blood cultures. Reviewed, so far nothing on Gram stain. Intermittent amphetamine use he states small amount, smoking, denies any IV injection. No sign of septic shock Reviewed vitals, CBC, INR, CMP, phosphorus, magnesium, CK, U tox, CT abdomen pelvis, chest x-ray, head CT. There is no sign of gastric ulcer perforation Acute renal failure with metabolic acidosis, hypophosphatemia, hypomagnesemia, low urine output. Nephrology consultation, appreciate assessment. Likely prerenal given gastric outlet obstruction, inability for oral intake to pass into the GI tract. Continue IV hydration. PPN as above. Worsening BUN elevation: BUN up to 129, this is likely combination of acute renal failure but also upper GI bleed with severe gastritis. Noted hemoglobin decreased from 20.8 up to 18.7, but is also very hemoconcentrated. Continue IV hydration. Reassess blood counts. Monitor for any additional bleeding. Continue PPI. Reassess renal function. Hypernatremia related to dehydration: Worsening hypernatremia sodium down to 154, stop saline, give D5, PPN arrangements as above. Appreciate nephrology recommendations. Polysubstance abuse: Denies ever injection recreational drug use. Confirms methamphetamine use but states he smokes a small amount of it. Encouraged him complete abstinence, discussed risks of amphetamine use including organ ischemia. Dangers even in small amount. He verbalized understanding, states intends not to use it anymore and that it will not be a problem for him to stop. Drug screen Full code N.p.o. SCD only due to GI bleed. Attestations 2 Medical Necessity Statement*: Continue admission for assessment management of severe gastritis, gastric outlet obstruction, prerenal acute renal failure, worsening hypernatremia, possible sepsis with recurrent vomiting, GI bleed. Coding Level of Care Code Critical Care >/= 30 minutes Critical care time (in minutes): 35 The high probability of a clinically significant, sudden or life threatening deterioration, as referenced in this documentation, required my full and direct attention, intervention and personal management. The critical care time shown is in addition to time spent performing any reported separately billable procedures and includes the following: [x] Data and vital sign review and interpretation [x ] Patient assessment, examination and intervention [x] Medication orders and management [x] Patient/Family updates as able [x] Care Coordination and Documentation. Diagnoses Amphetamine abuse, episodic F15.10 Gastroesophageal reflux disease, unspecified whether esophagitis present K21.9 Esophagitis presence: esophagitis presence not specified Gastritis K29.00 Chronicity: acute Gastritis bleeding: without bleeding Gastritis type: unspecified gastritis Nausea and vomiting R11.2 Epigastric pain R10.13 Abdominal location: epigastric Acute renal failure N17.9 Single kidney Z90.5 Hypernatremia E87.0 Dehydration E86.0 High anion gap metabolic acidosis E87.29 Sepsis A41.9
--- NOTE | 2023-08-04 12:05 | PC.SOCIAL ---
Pg 2 IMM Explained to pt Pg 2 IMM. No questions voiced. Provided pt a copy. Initialed, dated, & timed a copy & placed in chart.
[2023-08-04 12:45] LABS: Lactic Acid level (Lactate) 2.5 mmol/L (0.5-2.2)
[2023-08-04 12:52] LABS: Anion Gap 29.3 (5-19); Calcium 9.3 mg/dL (8.5-10.5); Carbon Dioxide 21 mmol/L (22-29); Chloride 108 mmol/L (98-107); Creatinine Clr Calc Pharmacy 16.3524; Glomerular Filtration Rate 11.9 mL/min (90-130); Glucose 99 mg/dL (65-115); Potassium 4.3 mmol/L (3.5-5.1); Sodium 154 mmol/L (136-145)
[2023-08-04 13:03] LABS: Blood Urea Nitrogen 129 mg/dL (8-23); Osmolality Calculated 360 mOsm/kg (285-295)
--- NOTE | 2023-08-04 14:20 | ANES.PREANE2 ---
Pre-Anesthetic Assessment Height/Weight: Height 1.85 m Weight 80.467 kg Temp Pulse Resp BP Pulse Ox O2 Del Method 97.4 F L 103 H 18 144/106 95 Room Air 08/04/23 04:00 08/04/23 13:00 08/04/23 13:00 08/04/23 13:00 08/04/23 13:00 08/04/23 08:12 Operation Date: 08/04/23 14:30 Proposed Procedures p EGD(Not Applicable) - Jean Claude Gilliland DO Familial anesthetic complications: NOne Was Beta Clara taken within 24 hours: N/A Was Clonidine taken within 24 hours: N/A Last intake: Intake Last Liquid Date 08/04/23 Last Liquid Time 09:30 Social No alcohol and No tobacco methamphetamines Airway Mallampati: Class II Dentition: other (poor dentition) single kidney, acute renal failure GI Gastroesophageal Reflux Disease Metabolic metabolic acidosis Anesthetic Plan ASA status: 4 Anesthesia: General Risk of > 500 ml blood loss (7ml/kg in children): No Medications/Allergies Home Medications Medication Instructions Recorded Confirmed Last Taken Type sucralfate 1 gram tablet (Carafate) 1 g PO TID 30 days #90 tabs 07/17/23 08/04/23 07/27/23 Rx ondansetron 4 mg disintegrating 4 mg PO QID PRN nausea and 07/25/23 08/04/23 07/27/23 Rx tablet vomiting #30 tabs sucralfate 100 mg/mL oral 10 ml PO BID 30 days #840 mL 07/25/23 08/04/23 07/27/23 Rx suspension pantoprazole 40 mg tablet,delayed 40 mg PO DAILY 08/04/23 08/04/23 Unknown History release Allergies Allergy/AdvReac Type Severity Reaction Status Date / Time fentanyl Allergy ALGY-Rash Verified 08/04/23 08:07 morphine Allergy ALGY-Hives Verified 08/04/23 08:07 oxycodone Allergy unknown Verified 08/04/23 08:07 Current Medications Generic Name Dose Route Start Last Admin Trade Name Freq PRN Reason Stop Dose Admin Nicotine 1 patch 08/04/23 09:00 08/04/23 08:16 Nicotine 14 Mg Patch TRANSDERMA 1 patch DAILY ALLEN Administration Ondansetron HCl 4 mg 08/04/23 01:51 08/04/23 02:41 Ondansetron 2 Mg/Ml Sdv 2 Ml IVP 4 mg Q6H PRN Administration NAUSEA AND VOMITING Pantoprazole Sodium 40 mg 08/04/23 09:00 08/04/23 08:16 Pantoprazole 40 Mg Sdv IVP 40 mg BID ALLEN Administration Sucralfate 1 gm 08/04/23 09:00 08/04/23 08:16 Sucralfate 1 Gm Tablet PO 1 gm TID ALLEN Administration PFSH Anesthesia Medical History Single kidney Broken fibula Broken tibia DJD (degenerative joint disease) H/O renal cell cancer Surgical History Hx of colonoscopy 2005 [place] H/O laceration repair (05/22/20) H/O hand surgery S/p nephrectomy Left-sided nephrectomy H/O skin graft Family History Father Cancer stomach Social History Smoking and tobacco/nicotine status: current every day tobacco/nicotine user cigarettes Alcohol intake: never Data Anesthesia 08/04/23 06:23 08/04/23 11:41 Short CBC 08/03/23 08/04/23 Range/Units 20:54 06:23 WBC 16.61 H 18.20 H (3.29-11.43) 10^3/uL Hgb 20.80 H 18.70 H (11.27-16.99) g/dL Hct 62.3 H 57.9 H (37-53) % MCV 94.8 96.3 (82-101) fl Plt Count 399 321 (157-399) 10^3/cmm Neut % (Auto) 90.1 83.8 % Neut # (Auto) 14.98 H 15.23 H (1.8-7.7) 10^3/uL BMP 08/03/23 08/04/23 08/04/23 20:54 02:13 06:23 Sodium 152 H 153 H 153 H Potassium 4.1 4.2 4.2 Chloride 98 108 H 107 Carbon Dioxide 20 L 22 20 L BUN 120 H* D 124 H* 127 H* Creatinine 5.6 H* 5.1 H 4.9 H Glucose 168 H 92 107 Calcium 10.8 H 9.2 9.2 08/04/23 11:41 Sodium 154 H Potassium 4.3 Chloride 108 H Carbon Dioxide 21 L BUN 129 H* Creatinine 4.9 H Glucose 99 Calcium 9.3 Cardiac Enzymes 08/03/23 Range/Units 20:54 Creatine Kinase 84 (39-308) U/L Liver Function 08/03/23 Range/Units 20:54 Total Bilirubin 1.0 (0.15-1.2) mg/dL AST 15 (0-40) U/L ALT 31 (0-41) U/L Alkaline Phosphatase 188 H (40-130) U/L Albumin 4.7 (3.5-5.2) g/dL Coags 08/03/23 08/04/23 20:54 06:23 PT 16.90 H INR 1.33 H C-Reactive Protein 41.2 H Microbiology 08/03/23 20:57 Blood Culture - Preliminary Blood SPECIMEN COLLECTED 08/03/23 20:54 Blood Culture - Preliminary Blood SPECIMEN COLLECTED Cardiac Studies: No Data to Display
--- NOTE | 2023-08-04 14:29 | P.CONIM_ITS ---
Providers/Reason For Consult 2 Consulting Physician/Specialty*: kommana/nEPHROLOGY Reason for Consult*: aCUTE ON ckd hYPERNATREMIA Attending Physician: Manpreet Main Primary Care Provider: Jodie Marshall MD History of Present Illness History of Present Illness Ezequiel Davis is a 67 year old male Patient is a 67-year-old male with past medical history of solitary kidney, prior nephrectomy due to renal cell carcinoma, was recently admitted to the hospital with GI bleed and nausea vomiting but left AMA prior to EGD was done. Patient presents back to the hospital now due to generalized weakness and not able to eat much due to severe nausea.. Also has fevers. And chills. In the emergency department vital signs are stable blood pressure borderline low, hemoglobin was 20 WBC count was 16 sodium was 152 BUN 120 and creatinine was 5.6. Patient was not thought to be hemoconcentrated due to severe dehydration from decreased p.o. intake and was started on fluids overnight. His creatinine is down to 4.9 currently and sodium is at 154. Patient underwent EGD that showed esophageal ulcers and severe gastritis. Patient is currently getting TPN and also D5 normal saline at 50 cc an hour. Patient currently denies any complaints. Review of Systems 2 Narrative: other ORS negative Medications/Allergies Home Medications Medication Instructions Recorded Confirmed Last Taken Type sucralfate 1 gram tablet (Carafate) 1 g PO TID 30 days #90 tabs 07/17/23 08/04/23 07/27/23 Rx ondansetron 4 mg disintegrating 4 mg PO QID PRN nausea and 07/25/23 08/04/23 07/27/23 Rx tablet vomiting #30 tabs sucralfate 100 mg/mL oral 10 ml PO BID 30 days #840 mL 07/25/23 08/04/23 07/27/23 Rx suspension pantoprazole 40 mg tablet,delayed 40 mg PO DAILY 08/04/23 08/04/23 Unknown History release Allergies Allergy/AdvReac Type Severity Reaction Status Date / Time fentanyl Allergy ALGY-Rash Verified 08/04/23 08:07 morphine Allergy ALGY-Hives Verified 08/04/23 08:07 oxycodone Allergy unknown Verified 08/04/23 08:07 Current Medications Generic Name Dose Route Start Last Admin Trade Name Freq PRN Reason Stop Dose Admin Nicotine 1 patch 08/04/23 09:00 08/04/23 08:16 Nicotine 14 Mg Patch TRANSDERMA 1 patch DAILY ALLEN Administration Ondansetron HCl 4 mg 08/04/23 01:51 08/04/23 02:41 Ondansetron 2 Mg/Ml Sdv 2 Ml IVP 4 mg Q6H PRN Administration NAUSEA AND VOMITING Pantoprazole Sodium 40 mg 08/04/23 09:00 08/04/23 08:16 Pantoprazole 40 Mg Sdv IVP 40 mg BID ALLEN Administration Sucralfate 1 gm 08/04/23 09:00 08/04/23 08:16 Sucralfate 1 Gm Tablet PO 1 gm TID ALLEN Administration PFSH Acute 2 PFSH: Medical History Single kidney Broken fibula Broken tibia DJD (degenerative joint disease) H/O renal cell cancer Surgical History Hx of colonoscopy 2005 [place] H/O laceration repair (05/22/20) H/O hand surgery S/p nephrectomy Left-sided nephrectomy H/O skin graft Family History Father Cancer stomach Social History Smoking and tobacco/nicotine status: current every day tobacco/nicotine user cigarettes Alcohol intake: never Vitals/I&O/Wt Last Vital Signs Temp 97.4 F L 08/04/23 04:00 Pulse 103 H 08/04/23 13:00 Resp 18 08/04/23 13:00 BP 144/106 08/04/23 13:00 Pulse Ox 95 08/04/23 13:00 O2 Del Method Room Air 08/04/23 08:12 08/03/23 08/04/23 08/04/23 22:59 06:59 14:59 Intake Total 2227.25 / 2227.25 120 / 120 Output Total 200 / 200 500 / 500 Balance 2026. / -380 / -380 Weight last 48 hrs Weight 80.467 kg Weight 80.467 kg Weight 72.575 kg Physical Exam 2 Narrative: awake ,alert No distress s1s2 RRR per report Lungs clear per report No edema Urinary Catheter Management: Mcgraw: Cath Placed During This Visit: yes Reason for Continuing Indwelling Catheter: Accurate Measurement of Urinary Output in Critically Ill Patients Urinary Catheter Date of Insertion: 08/04/23 Urinary Catheter Time of Insertion: 00:10 Data 08/04/23 06:23 08/04/23 11:41 Micro: Microbiology 08/03/23 20:57 Blood Culture - Preliminary Blood SPECIMEN COLLECTED 08/03/23 20:54 Blood Culture - Preliminary Blood SPECIMEN COLLECTED A&P Assessment and plan (1) RUBI (acute kidney injury): 1. Acute on chronic kidney disease: Baseline creatinine is in the mid 1 range, creatinine was 1.7 at the time of recent discharge about 2 weeks ago. Patient has solitary kidney due to prior nephrectomy from renal cell cancer. -Patient now has severe RUBI with a creatinine of 5.6 on presentation in the setting of poor p.o. intake, nausea vomiting. -Agree with fluid resuscitation currently on TPN, -No acute indication for dialysis, continue to watch renal function, urine output reasonable -Avoid nephrotoxins and IV contrast studies -Very high BUN noted due to prerenal azotemia and possible GI bleed. 2. Hypernatremia: On hypotonic fluids, watch closely 3. Severe nausea vomiting decreased p.o. intake: On TPN currently 4. Metabolic acidosis: Mild, continue to monitor Patient evaluated using audiovisual cart. Time spent 40 minutes. Consult Attestations 2 Medical Necessity Statement: per billie Coding Level of Care Code Acute Code for [facility] Diagnoses RUBI (acute kidney injury) N17.9
[2023-08-04] MEDS: EPINEPHrine 1 mg/mL INJ XX (14:49)
--- NOTE | 2023-08-04 15:10 | ANE.PACU2 ---
Inpatient post-anesthesia follow up: Airway intact: Yes Vital signs: Temperature 98 F Pulse Rate 91 Respiratory Rate 15 Blood Pressure 147/100 Pulse Oximetry 95 Oxygen Delivery Me thod Room Air Oxygen Flow Rate Fraction of Inspir ed Oxygen Hydration adequate: Yes Nausea and vomiting: No Pain level: 1 Mental status: Baseline
[2023-08-04] MEDS: piperacillin-tazobactam 3.375 GM in sodium chloride 0.9% (plus) 50 ML IV (16:01)
[2023-08-04] MEDS: AA-Dex 4.25%-5% w/Lytes 1,000 ML with multivitamin inj 10 ML 43 ML IV (16:52)
[2023-08-04] MEDS: [UNRECOGNIZED DRUG - REMARK] 83 ML IV (18:00)
[2023-08-04 18:46] LABS: Add Urine Microscopic? YES; Bacteria Urine 2+ /hpf; Bilirubin Urine 1+ (Negative); Blood Urine 3+ (Negative); Glucose Urine UA Norm (Normal); Ketones Urine 1+ (Negative); Leukocyte Esterase Urine 1+ (Negative); Nitrate Urine Negative (Negative); Protein Urine 1+ (Negative); RBC Urine 25-40 /hpf (0-2); Squamous Epithelial Cell Urine 0-4 /hpf (0-5); Urine Appearance Hazy (CLEAR); Urine Color Yellow (Yellow); Urobilinogen Urine 4 mg/dL (Negative); pH Urine 5 (5-7)
[2023-08-04 18:47] LABS: Add Urine Culture? Yes
[2023-08-05] VITALS (30 sets, daily range): BP systolic 113–157; BP diastolic 72–106; PULSE 89–101; RESP 12–30; TEMP 36.1–36.6; O2SAT 89–97; BMI 23.7
[2023-08-05] MEDS: HYDROmorphone 1 mg/mL INJ 1 mL 0.5 MG IVP ×3 (02:07→14:10)
[2023-08-05] MEDS: dextrose 5% 1,000 ML 75 ML IV ×2 (02:08→15:28)
[2023-08-05] MEDS: piperacillin-tazobactam 3.375 GM in sodium chloride 0.9% (plus) 50 ML IV ×2 (03:35→15:28)
[2023-08-05] MEDS: LORazepam 2 mg/mL INJ 10 mL MDV 0.5 MG IVP (03:41)
[2023-08-05 04:16] LABS: Basophils % 0.2 %; Eosinophils # 0.1 10^3/uL (0.0-0.8); Eosinophils % 0.6 %; Hematocrit 54.8 % (37-53); Lymphocytes # 1.7 10^3/uL (0.8-4.8); Lymphocytes % 12.9 %; Mean Corpuscular HGB Conc 32.1 g/dL (30-55); Mean Corpuscular Hemoglobin 31.6 pg (27-33); Mean Corpuscular Volume 98.4 fl (82-101); Mean Platelet Volume 13.5 fL (7.4-10.4); Monocytes # 1.2 10^3/uL (0.2-0.9); Monocytes % 8.7 %; Neutrophils # 10.23 10^3/uL (1.8-7.7); Neutrophils % 77.2 %; Nucleated Red Blood Cells % 0 %; Platelet Count 277 10^3/cmm (157-399); Red Blood Count 5.57 10^6/uL (3.85-5.65); Red Cell Distribution Width 13.2 % (12.1-15.1); White Blood Count 13.26 10^3/uL (3.29-11.43)
[2023-08-05 05:49] LABS: Albumin Level 3.7 g/dL (3.5-5.2); Alkaline Phosphatase 135 U/L (40-130); Calcium 9.5 mg/dL (8.5-10.5); Carbon Dioxide 24 mmol/L (22-29); Chloride 113 mmol/L (98-107); Creatinine Clr Calc Pharmacy 22.8934; Globulin 3.9 g/dL (1.3-4.6); Glomerular Filtration Rate 17.5 mL/min (90-130); Glucose 136 mg/dL (65-115); Phosphorus 3.9 mg/dL (2.5-4.5); Sodium 153 mmol/L (136-145); Total Bilirubin 0.7 mg/dL (0.15-1.2); Total Protein 7.6 g/dL (6.6-8.7)
[2023-08-05 05:51] LABS: Alanine Aminotransferase 19 U/L (0-41); Anion Gap 20.2 (5-19); Aspartate Amino Transferase 17 U/L (0-40); Potassium 4.2 mmol/L (3.5-5.1)
[2023-08-05 05:56] LABS: Blood Urea Nitrogen 119 mg/dL (8-23)
[2023-08-05] MEDS: [UNRECOGNIZED DRUG - REMARK] 83 ML IV ×2 (08:02→19:52)
[2023-08-05] MEDS: sucralfate 1 gm Tablet PO (08:17)
[2023-08-05] MEDS: nicotine 14 mg Patch 1 PATCH TRANSDERMA (08:18)
[2023-08-05] MEDS: pantoprazole 40 mg SDV IVP ×2 (08:18→17:36)
--- NOTE | 2023-08-05 09:37 | P.PN_ITS ---
Subjective 2 Subjective: Patient seen and examined. Still reporting burning epigastric pain. Continues to have nausea and vomiting. Still no bowel movement but passing flatus Vitals/I&O/Wt Last Vital Signs Temp 98 F 08/05/23 08:00 Pulse 91 08/05/23 08:28 Resp 15 08/05/23 08:28 BP 147/100 08/05/23 08:00 Pulse Ox 95 08/05/23 08:28 O2 Del Method Room Air 08/05/23 08:28 08/04/23 08/05/23 08/05/23 22:59 06:59 14:59 Intake Total 163 / 283 1501.667 / 1784.667 50 / 50 Output Total 500 / 1000 750 / 1750 Balance -337 / -717 751.667 / 34.667 50 / 50 Weight last 48 hrs Weight 180 lb Weight 177 lb 6.4 oz Weight 177 lb 6.4 oz Weight 160 lb Physical Exam 2 Narrative: General: No acute distress, awake alert and oriented x 3 Abdomen: Soft, nondistended, mild epigastric tenderness, no guarding rebound or masses Urinary Catheter Management: Mcgraw: Cath Placed During This Visit: yes Reason for Continuing Indwelling Catheter: Accurate Measurement of Urinary Output in Critically Ill Patients Urinary Catheter Date of Insertion: 08/04/23 Urinary Catheter Time of Insertion: 00:10 Data 08/05/23 03:47 08/05/23 05:20 Micro: Microbiology 08/03/23 20:57 Blood Culture - Preliminary Blood NEGATIVE TO DATE 08/03/23 20:54 Blood Culture - Preliminary Blood NEGATIVE TO DATE A&P Assessment and plan (1) Gastric outlet obstruction: (2) Acute kidney injury superimposed on chronic kidney disease: (3) Nausea and vomiting: (4) High anion gap metabolic acidosis: (5) Ulcerative esophagitis: (6) Acute gastritis with hemorrhage: (7) SIRS (systemic inflammatory response syndrome): Plan Patient has ulcerative esophagitis and diffuse severe hemorrhagic and edematous gastritis causing gastric outlet obstruction Postoperative day #1 status post EGD with biopsy and control of bleeding Follow-up biopsy results Agree with antibiotics. Patient has SIRS without a definitive septic source and in the setting of the above esophagitis and gastritis IVF/TPN N.p.o.-may have a small cup of ice chips every 8 hours IV Protonix Liquid sucralfate Add Reglan for nausea Medical management per hospitalist Attestations 2 Medical Necessity Statement*: Per primary Coding Level of Care Code 99000 Diagnoses Gastric outlet obstruction K31.1 Acute kidney injury superimposed on chronic kidney disease N17.9; N18.9 Nausea and vomiting R11.2 High anion gap metabolic acidosis E87.29 Ulcerative esophagitis K22.10 Acute gastritis with hemorrhage K29.01 SIRS (systemic inflammatory response syndrome) R65.10
[2023-08-05] MEDS: metoclopramide 5 mg/mL SDV 2 mL IVP ×3 (09:46→21:40)
[2023-08-05] MEDS: ondansetron 2 mg/ML SDV 2 mL 4 MG IVP (14:10)
[2023-08-05] MEDS: sucralfate 1 gm/10 mL Oral Liq UDC PO ×2 (14:10→21:39)
--- NOTE | 2023-08-05 15:42 | P.PN_ITS ---
Subjective 2 Subjective: Still abdominal discomfort, regurgitating stomach secretions and any sips he takes. Nonbloody appearance today. Vitals/I&O/Wt Last Vital Signs Temp 97 F L 08/05/23 12:00 Pulse 90 08/05/23 14:00 Resp 22 H 08/05/23 14:10 BP 139/91 08/05/23 14:00 Pulse Ox 94 08/05/23 14:00 O2 Del Method Room Air 08/05/23 08:28 08/05/23 08/05/23 08/05/23 06:59 14:59 22:59 Intake Total 1501.667 / 1784.667 50 / 50 1000 / 1050 Output Total 750 / 1750 Balance 751.667 / 34.667 50 / 50 1000 / 1050 Weight last 48 hrs Weight 81.647 kg Weight 80.467 kg Weight 80.467 kg Weight 72.575 kg Physical Exam 2 Narrative: Intermittently vomiting up clear secretions into a basin. Const: COMMON NORMALS: patient oriented x3 and alert GENERAL APPEARANCE: c ooperative ORIENTATION/CONSCIOUSNESS: Yes awake HENMT: COMMON NORMALS: oropharynx normal Neck/C-Spine: COMMON NORMALS: no JVD Resp: COMMON NORMALS: normal respiratory effort and clear to auscultation bilaterally AUSCULTATION: clear to auscultation bilaterally Cardio: COMMON NORMALS: no JVD, regular rhythm, S1 normal heart sound present, S2 normal heart sound present and No murmurs present (Cardio) RHYTHM: regular rhythm HEART SOUNDS: S1 normal heart sound present and S2 normal heart sound present GI: COMMON NORMALS: Normal to inspection, nondistended, normoactive bowel sounds present, Soft to palpation and non-tender PALPATION: Yes Soft to palpation Extremity: COMMON NORMALS: no joint enlargement and no pedal edema Neuro: COMMON NORMALS: patient oriented x3 and moves all extremities S ENSORIUM/ORIENTATION: Yes alert Skin: COMMON NORMALS: no rashes or lesions noted GENERAL SKIN EXAM: no rashes or lesions noted Urinary Catheter Management: Mcgraw: Cath Placed During This Visit: yes Reason for Continuing Indwelling Catheter: Accurate Measurement of Urinary Output in Critically Ill Patients Urinary Catheter Date of Insertion: 08/04/23 Urinary Catheter Time of Insertion: 00:10 Data 08/05/23 03:47 03/30/24 05:20 Micro: Microbiology 08/03/23 20:57 Blood Culture - Preliminary Blood NEGATIVE TO DATE 08/03/23 20:54 Blood Culture - Preliminary Blood NEGATIVE TO DATE A&P Assessment and plan (1) Amphetamine abuse, episodic: (2) GERD (gastroesophageal reflux disease): Qualifiers: Esophagitis presence: esophagitis presence not specified Qualified Code(s): K21.9 - Gastro-esophageal reflux disease without esophagitis (3) Gastritis: Qualifiers: Chronicity: acute Gastritis bleeding: without bleeding Gastritis type: unspecified gastritis Qualified Code(s): K29.00 - Acute gastritis without bleeding (4) Nausea and vomiting: (5) Abdominal pain: Qualifiers: Abdominal location: epigastric Qualified Code(s): R10.13 - Epigastric pain (6) Acute renal failure: (7) Single kidney: (8) Hypernatremia: (9) Dehydration: (10) High anion gap metabolic acidosis: (11) Sepsis: Plan Severe pangastritis with gastric outlet obstruction: Unimproved. Still some intermittent regurgitation. Not ready to try oral intake. Reviewed vitals, CBC, CMP, UA. Reviewed surgery note. Cont n.p.o. with parenteral nutrition. PPN. Monitor for fluid overload with IV fluids, TPN. Hyperglycemia. Reviewed dietitian note, appreciate dietitian consultation for renal PPN given acute renal failure. Continue IV PPI twice daily. Cont acetaminophen as needed for pain, IV Dilaudid as needed for severe breakthrough. Transfer to medical surgical floor to continue care. Esophagitis: As above Sepsis: Without septic shock, noted improvement in WBC down to 13.26. Continue Zosyn. Reviewed UA, without suggestion of UTI. Possible sepsis reported on presentation with severe leukocytosis, tachycardia. Without obvious source. Does have severe gastritis as above. Possible bacterial translocation from the stomach given severity of inflammation. Reassess for bacteremia. Has been vomiting, possibility of aspiration pneumonia. Follow-up blood cultures. Reviewed, so far nothing on Gram stain. Intermittent amphetamine use he states small amount, smoking, denies any IV injection. No sign of septic shock There is no sign of gastric ulcer perforation Acute renal failure with metabolic acidosis, hypophosphatemia, hypomagnesemia, low urine output. Discussed with film tests checker. Reassess renal function. Appears to be showing some gradual improvement. Likely prerenal given gastric outlet obstruction, inability for oral intake to pass into the GI tract. Continue IV hydration. PPN as above. Worsening BUN elevation: Discussed with film tests checker. Reassess renal function. Monitor mental status. Possibly combination of some GI blood loss, prerenal failure, possibly protein in TPN. Noted with some improvement. BUN up to 129, this is likely combination of acute renal failure but also upper GI bleed with severe gastritis. Noted hemoglobin decreased from 20.8 up to 18.7, but is also very hemoconcentrated. Continue IV hydration. Reassess blood counts. Monitor for any additional bleeding. Continue PPI. Reassess renal function. Hypernatremia related to dehydration: Reviewed sodium, slight improvement but still 153 today, discussed with film tests checker. Will recheck chemistry. Continue D5W and PPN. Infusion rate may be increased in case of unimproved or worsening sodium. Polysubstance abuse: Denies ever injection recreational drug use. Confirms methamphetamine use but states he smokes a small amount of it. Encouraged him complete abstinence, discussed risks of amphetamine use including organ ischemia. Dangers even in small amount. He verbalized understanding, states intends not to use it anymore and that it will not be a problem for him to stop. Drug screen Full code N.p.o. SCD only due to GI bleed. Attestations 2 Medical Necessity Statement*: Continue admission for assessment management of severe pangastritis with gastric cause of edema, gastric outlet obstruction, acute renal failure, hyponatremia. Diagnoses Amphetamine abuse, episodic F15.10 Gastroesophageal reflux disease, unspecified whether esophagitis present K21.9 Esophagitis presence: esophagitis presence not specified Gastritis K29.00 Chronicity: acute Gastritis bleeding: without bleeding Gastritis type: unspecified gastritis Nausea and vomiting R11.2 Epigastric pain R10.13 Abdominal location: epigastric Acute renal failure N17.9 Single kidney Z90.5 Hypernatremia E87.0 Dehydration E86.0 High anion gap metabolic acidosis E87.29 Sepsis A41.9
--- NOTE | 2023-08-05 17:49 | PC.NURSE ---
report called and ready to transfer to room 275
--- NOTE | 2023-08-05 18:02 | P.PN_ITS ---
Subjective 2 Subjective: pt lethargic Medications: Reviewed: Yes Vitals/I&O/Wt Last Vital Signs Temp 98 F 08/05/23 16:00 Pulse 98 08/05/23 16:00 Resp 30 H 08/05/23 16:00 BP 138/90 08/05/23 16:00 Pulse Ox 97 08/05/23 15:00 O2 Del Method Room Air 08/05/23 08:28 08/05/23 08/05/23 08/05/23 06:59 14:59 22:59 Intake Total 1501.667 / 1784.667 50 / 50 1100 / 1150 Output Total 750 / 1750 1300 / 1300 Balance 751.667 / 34.667 50 / 50 -200 / -150 Weight last 48 hrs Weight 81.647 kg Weight 80.467 kg Weight 80.467 kg Weight 72.575 kg Physical Exam 2 Narrative: awake ,alert No distress s1s2 RRR per report Lungs clear per report No edema Urinary Catheter Management: Mcgraw: Cath Placed During This Visit: yes Reason for Continuing Indwelling Catheter: Accurate Measurement of Urinary Output in Critically Ill Patients Urinary Catheter Date of Insertion: 08/04/23 Urinary Catheter Time of Insertion: 00:10 Data 08/05/23 03:47 08/05/23 05:20 Micro: Microbiology 08/03/23 20:57 Blood Culture - Preliminary Blood NEGATIVE TO DATE 08/03/23 20:54 Blood Culture - Preliminary Blood NEGATIVE TO DATE A&P Assessment and plan (1) RUBI (acute kidney injury): 1. Acute on chronic kidney disease: Baseline creatinine is in the mid 1 range, creatinine was 1.7 at the time of recent discharge about 2 weeks ago. Patient has solitary kidney due to prior nephrectomy from renal cell cancer. -Patient now has severe RUBI with a creatinine of 5.6 on presentation in the setting of poor p.o. intake, nausea vomiting. -Agree with fluid resuscitation currently on TPN, -No acute indication for dialysis, continue to watch renal function, urine output reasonable -Avoid nephrotoxins and IV contrast studies -Very high BUN noted due to prerenal azotemia and possible GI bleed. 2. Hypernatremia: On d5w , monitor 3. Severe nausea vomiting decreased p.o. intake: On TPN currently 4. Metabolic acidosis: Mild, continue to monitor Patient evaluated using audiovisual cart. Time spent 40 minutes. Attestations 2 Medical Necessity Statement*: per billie Coding Level of Care Code Acute Code for [facility] Fwd Diagnoses RUBI (acute kidney injury) N17.9
[2023-08-05 20:21] LABS: Anion Gap 15.7 (5-19); Calcium 8.9 mg/dL (8.5-10.5); Carbon Dioxide 22 mmol/L (22-29); Chloride 116 mmol/L (98-107); Creatinine Clr Calc Pharmacy 30.9995; Glomerular Filtration Rate 24.7 mL/min (90-130); Glucose 118 mg/dL (65-115); Osmolality Calculated 340 mOsm/kg (285-295); Potassium 3.7 mmol/L (3.5-5.1); Sodium 150 mmol/L (136-145)
[2023-08-05 20:23] LABS: Blood Urea Nitrogen 95 mg/dL (8-23)
[2023-08-06] VITALS (11 sets, daily range): BP systolic 117–136; BP diastolic 69–82; PULSE 78–94; RESP 16–20; TEMP 36.4–36.7; O2SAT 92–96
[2023-08-06] MEDS: HYDROmorphone 1 mg/mL INJ 1 mL 0.5 MG IVP ×3 (00:56→20:15)
[2023-08-06 02:43] LABS: Basophils % 0.2 %; Eosinophils # 0.2 10^3/uL (0.0-0.8); Eosinophils % 1.6 %; Hematocrit 48.7 % (37-53); Lymphocytes # 1.6 10^3/uL (0.8-4.8); Lymphocytes % 14.7 %; Mean Corpuscular HGB Conc 32.4 g/dL (30-55); Mean Corpuscular Hemoglobin 30.9 pg (27-33); Mean Corpuscular Volume 95.3 fl (82-101); Mean Platelet Volume 13.4 fL (7.4-10.4); Monocytes # 0.8 10^3/uL (0.2-0.9); Monocytes % 7.7 %; Neutrophils # 8.22 10^3/uL (1.8-7.7); Neutrophils % 75.2 %; Nucleated Red Blood Cells % 0 %; Platelet Count 238 10^3/cmm (157-399); Red Blood Count 5.11 10^6/uL (3.85-5.65); Red Cell Distribution Width 13.2 % (12.1-15.1); White Blood Count 10.93 10^3/uL (3.29-11.43)
[2023-08-06 03:03] LABS: Alanine Aminotransferase 14 U/L (0-41); Albumin Level 3.4 g/dL (3.5-5.2); Alkaline Phosphatase 120 U/L (40-130); Anion Gap 14.5 (5-19); Aspartate Amino Transferase 13 U/L (0-40); Calcium 9.1 mg/dL (8.5-10.5); Carbon Dioxide 23 mmol/L (22-29); Chloride 114 mmol/L (98-107); Creatinine Clr Calc Pharmacy 33.5828; Globulin 3.5 g/dL (1.3-4.6); Glomerular Filtration Rate 27.1 mL/min (90-130); Glucose 128 mg/dL (65-115); Phosphorus 1.8 mg/dL (2.5-4.5); Potassium 3.5 mmol/L (3.5-5.1); Sodium 148 mmol/L (136-145); Total Bilirubin 0.6 mg/dL (0.15-1.2); Total Protein 6.9 g/dL (6.6-8.7)
[2023-08-06 03:14] LABS: Blood Urea Nitrogen 86 mg/dL (8-23)
[2023-08-06] MEDS: piperacillin-tazobactam 3.375 GM in sodium chloride 0.9% (plus) 50 ML IV ×2 (03:35→14:53)
[2023-08-06] MEDS: metoclopramide 5 mg/mL SDV 2 mL IVP ×4 (03:36→23:13)
[2023-08-06] MEDS: ondansetron 2 mg/ML SDV 2 mL 4 MG IVP (05:12)
[2023-08-06] MEDS: dextrose 5% 1,000 ML 75 ML IV ×2 (05:14→19:54)
--- NOTE | 2023-08-06 07:46 | PC.PHAR ---
NOTED LOW PHOS; DR ZAMORANO APPROVES CHANGE TO STANDARD ELECTROLYTE PPN
[2023-08-06] MEDS: AA-Dex 4.25%-5% w/Lytes 1,000 ML with multivitamin inj 5 ML 83 ML IV ×2 (08:43→20:20)
[2023-08-06] MEDS: nicotine 14 mg Patch 1 PATCH TRANSDERMA (08:43)
[2023-08-06] MEDS: sucralfate 1 gm/10 mL Oral Liq UDC PO ×3 (08:43→20:18)
[2023-08-06] MEDS: pantoprazole 40 mg SDV IVP ×2 (09:18→19:54)
--- NOTE | 2023-08-06 12:14 | PM.PN ---
Subjective Subjective: doing well NPO currently and on TPN Medications: Reviewed: Yes Vitals/I&O/Wt Last Vital Signs Temp 98.1 F 08/06/23 07:24 Pulse 88 08/06/23 10:00 Resp 16 08/06/23 10:00 BP 123/77 08/06/23 07:24 Pulse Ox 96 08/06/23 10:00 O2 Del Method Room Air 08/06/23 10:00 08/05/23 08/06/23 08/06/23 22:59 06:59 14:59 Intake Total 2592.150 / 2642.150 1000 / 3642.150 50 / 50 Output Total 1900 / 1900 350 / 2250 Balance 692.150 / 742.150 650 / 1392.150 50 / 50 Weight last 48 hrs Weight 86.438 kg Weight 81.647 kg Physical Exam Narrative: awake ,alert No distress s1s2 RRR per report Lungs clear per report No edema Urinary Catheter Management: Mcgraw: Cath Placed During This Visit: yes Reason for Continuing Indwelling Catheter: Acute Urinary Retention or Obstruction Urinary Catheter Date of Insertion: 08/04/23 Urinary Catheter Time of Insertion: 00:10 Data 08/06/23 02:15 08/06/23 02:15 Micro: Microbiology 08/04/23 17:25 Urine Culture - Final Urine,Clean Catch A&P Assessment and plan (1) RUBI (acute kidney injury): 1. Acute on chronic kidney disease: Baseline creatinine is in the mid 1 range, creatinine was 1.7 at the time of recent discharge about 2 weeks ago. Patient has solitary kidney due to prior nephrectomy from renal cell cancer. -Patient now has severe RUBI with a creatinine of 5.6 on presentation in the setting of poor p.o. intake, nausea vomiting. -Agree with fluid resuscitation currently on TPN, -Renal fxn improving -Avoid nephrotoxins and IV contrast studies -Very high BUN noted due to prerenal azotemia and possible GI bleed. 2. Hypernatremia: On d5w , monitor 3. Severe nausea vomiting decreased p.o. intake: On TPN currently 4. Metabolic acidosis: Mild, continue to monitor Patient evaluated using audiovisual cart. Time spent 40 minutes. Attestations Medical Necessity Statement*: per billie Coding Level of Care Code Acute Code for [facility] Fwd Diagnoses RUBI (acute kidney injury) N17.9
--- NOTE | 2023-08-06 18:05 | P.PN_ITS ---
Subjective 2 Subjective: He is still having regurgitation of clear stomach contents. But possibly less than before. MM ddry, asks for ice chips. Vitals/I&O/Wt Last Vital Signs Temp 98.1 F 08/06/23 15:00 Pulse 85 08/06/23 15:00 Resp 16 08/06/23 15:00 BP 126/79 08/06/23 15:00 Pulse Ox 94 08/06/23 15:00 O2 Del Method Room Air 08/06/23 15:00 08/06/23 08/06/23 08/06/23 06:59 14:59 22:59 Intake Total 1000 / 3642.150 1209.65 / 1209.65 Output Total 350 / 2250 550 / 550 300 / 850 Balance 650 / 1392.150 659.65 / 659.65 -300 / 359.65 Weight last 48 hrs Weight 86.438 kg Weight 81.647 kg Physical Exam 2 Narrative: Clear secretions in a basin. Const: COMMON NORMALS: patient oriented x3 and alert GENERAL APPEARANCE: c ooperative ORIENTATION/CONSCIOUSNESS: Yes awake HENMT: COMMON NORMALS: oropharynx normal Neck/C-Spine: COMMON NORMALS: no JVD Resp: COMMON NORMALS: normal respiratory effort and clear to auscultation bilaterally AUSCULTATION: clear to auscultation bilaterally Cardio: COMMON NORMALS: no JVD, regular rhythm, S1 normal heart sound present, S2 normal heart sound present and No murmurs present (Cardio) RHYTHM: regular rhythm HEART SOUNDS: S1 normal heart sound present and S2 normal heart sound present GI: COMMON NORMALS: Normal to inspection, nondistended, normoactive bowel sounds present, Soft to palpation and non-tender PALPATION: Yes Soft to palpation Extremity: COMMON NORMALS: no joint enlargement and no pedal edema Neuro: COMMON NORMALS: patient oriented x3 and moves all extremities S ENSORIUM/ORIENTATION: Yes alert Skin: COMMON NORMALS: no rashes or lesions noted GENERAL SKIN EXAM: no rashes or lesions noted Urinary Catheter Management: Mcgraw: Cath Placed During This Visit: yes Reason for Continuing Indwelling Catheter: Acute Urinary Retention or Obstruction Urinary Catheter Date of Insertion: 08/04/23 Urinary Catheter Time of Insertion: 00:10 Data 08/06/23 02:15 08/06/23 02:15 Micro: Microbiology 08/04/23 17:25 Urine Culture - Final Urine,Clean Catch A&P Assessment and plan (1) Amphetamine abuse, episodic: (2) GERD (gastroesophageal reflux disease): Qualifiers: Esophagitis presence: esophagitis presence not specified Qualified Code(s): K21.9 - Gastro-esophageal reflux disease without esophagitis (3) Gastritis: Qualifiers: Chronicity: acute Gastritis bleeding: without bleeding Gastritis type: unspecified gastritis Qualified Code(s): K29.00 - Acute gastritis without bleeding (4) Nausea and vomiting: (5) Abdominal pain: Qualifiers: Abdominal location: epigastric Qualified Code(s): R10.13 - Epigastric pain (6) Acute renal failure: (7) Single kidney: (8) Hypernatremia: (9) Dehydration: (10) High anion gap metabolic acidosis: (11) Sepsis: Plan Severe pangastritis with gastric outlet obstruction: Not yet sufficintly improved to try PO intake. Still some intermittent regurgitation, though less. Ice chips only. Reviewed vitals, CBC, CMP, Phos, Mg. Phos noted to be low, discussed with pharmacist. PPN to be switched to standard electrolytes. Cont n.p.o. with parenteral nutrition. PPN. Monitor for fluid overload with IV fluids, PPN. Monitor for any hyperglycemia or risk with PPN. Reviewed morning glucose, doing okay. Not ordering Accu-Cheks for now, as he may be at risk of premature discharge, however, these may be necessary in case glucose starts rising on morning labs. Acute renal failure with metabolic acidosis, hypophosphatemia, hypomagnesemia, low urine output. Reviewed nephrology note. Reviewed sodium, noted improving. Continue D5W, PPN. Reassess sodium level. Reassess renal function. Appears to be showing some gradual improvement. Noted hypophosphatemia, discussed with pharmacist, switch to regular electrolyte composition and PPN. Likely prerenal given gastric outlet obstruction, inability for oral intake to pass into the GI tract. Continue IV hydration. PPN as above. Continue IV PPI twice daily. Sucralfate. Cont acetaminophen as needed for pain, IV Dilaudid as needed for severe breakthrough. Esophagitis: As above Sepsis: Resolved. Without septic shock, noted improvement in WBC down to 13.26. Continue Zosyn. Reviewed UA, without suggestion of UTI. Possible sepsis reported on presentation with severe leukocytosis, tachycardia. Without obvious source. Does have severe gastritis as above. Possible bacterial translocation from the stomach given severity of inflammation. Reassess for bacteremia. Has been vomiting, possibility of aspiration pneumonia. Follow-up blood cultures. Reviewed, so far nothing on Gram stain. Intermittent amphetamine use he states small amount, smoking, denies any IV injection. No sign of septic shock There is no sign of gastric ulcer perforation Worsening BUN elevation: Improving.Reassess renal function. Monitor mental status. Possibly combination of some GI blood loss, prerenal failure, possibly protein in TPN. Noted with some improvement. BUN up to 129, this is likely combination of acute renal failure but also upper GI bleed with severe gastritis. Noted hemoglobin decreased from 20.8 up to 18.7, but is also very hemoconcentrated. Continue IV hydration. Reassess blood counts. Monitor for any additional bleeding. Continue PPI. Reassess renal function. Hypernatremia related to dehydration: Reviewed sodium, noted gradually improving. Will recheck chemistry. Continue D5W and PPN. Infusion rate may be increased in case of unimproved or worsening sodium. Polysubstance abuse: Denies ever injection recreational drug use. Confirms methamphetamine use but states he smokes a small amount of it. Encouraged him complete abstinence, discussed risks of amphetamine use including organ ischemia. Dangers even in small amount. He verbalized understanding, states intends not to use it anymore and that it will not be a problem for him to stop. Drug screen Full code N.p.o. SCD only due to GI bleed. Attestations 2 Medical Necessity Statement*: Continue admission for assessment management of severe pangastritis with gastric cause of edema, gastric outlet obstruction, acute renal failure, hyponatremia. Diagnoses Amphetamine abuse, episodic F15.10 Gastroesophageal reflux disease, unspecified whether esophagitis present K21.9 Esophagitis presence: esophagitis presence not specified Gastritis K29.00 Chronicity: acute Gastritis bleeding: without bleeding Gastritis type: unspecified gastritis Nausea and vomiting R11.2 Epigastric pain R10.13 Abdominal location: epigastric Acute renal failure N17.9 Single kidney Z90.5 Hypernatremia E87.0 Dehydration E86.0 High anion gap metabolic acidosis E87.29 Sepsis A41.9
[2023-08-07] VITALS (9 sets, daily range): BP systolic 109–131; BP diastolic 59–75; PULSE 75–96; RESP 16–22; TEMP 36.5–37.3; O2SAT 91–96; BMI 25.5
[2023-08-07 02:56] LABS: Basophils % 0.3 %; Eosinophils # 0.3 10^3/uL (0.0-0.8); Hematocrit 45.1 % (37-53); Lymphocytes # 1.8 10^3/uL (0.8-4.8); Mean Corpuscular HGB Conc 32.6 g/dL (30-55); Mean Corpuscular Hemoglobin 31.3 pg (27-33); Mean Corpuscular Volume 96.2 fl (82-101); Mean Platelet Volume 12.1 fL (7.4-10.4); Monocytes # 0.6 10^3/uL (0.2-0.9); Monocytes % 5.7 %; Neutrophils # 8.17 10^3/uL (1.8-7.7); Neutrophils % 74.4 %; Nucleated Red Blood Cells % 0 %; Platelet Count 233 10^3/cmm (157-399); Red Blood Count 4.69 10^6/uL (3.85-5.65); Red Cell Distribution Width 13.2 % (12.1-15.1); White Blood Count 10.99 10^3/uL (3.29-11.43)
[2023-08-07 03:17] LABS: Alanine Aminotransferase 13 U/L (0-41); Albumin Level 3.3 g/dL (3.5-5.2); Alkaline Phosphatase 119 U/L (40-130); Anion Gap 13.8 (5-19); Aspartate Amino Transferase 16 U/L (0-40); Blood Urea Nitrogen 58 mg/dL (8-23); Calcium 8.8 mg/dL (8.5-10.5); Carbon Dioxide 23 mmol/L (22-29); Chloride 111 mmol/L (98-107); Globulin 3.2 g/dL (1.3-4.6); Glomerular Filtration Rate 43.2 mL/min (90-130); Glucose 108 mg/dL (65-115); Phosphorus 2.1 mg/dL (2.5-4.5); Potassium 3.8 mmol/L (3.5-5.1); Sodium 144 mmol/L (136-145); Total Bilirubin 0.7 mg/dL (0.15-1.2); Total Protein 6.5 g/dL (6.6-8.7)
[2023-08-07] MEDS: HYDROmorphone 1 mg/mL INJ 1 mL 0.5 MG IVP ×2 (04:06→21:43)
[2023-08-07] MEDS: metoclopramide 5 mg/mL SDV 2 mL IVP ×4 (04:06→21:43)
[2023-08-07] MEDS: piperacillin-tazobactam 3.375 GM in sodium chloride 0.9% (plus) 50 ML IV ×3 (04:07→23:55)
[2023-08-07] MEDS: AA-Dex 4.25%-5% w/Lytes 1,000 ML with multivitamin inj 5 ML 83 ML IV ×2 (08:37→21:14)
[2023-08-07] MEDS: pantoprazole 40 mg SDV IVP ×2 (08:41→18:35)
[2023-08-07] MEDS: nicotine 14 mg Patch 1 PATCH TRANSDERMA (08:43)
[2023-08-07] MEDS: sucralfate 1 gm/10 mL Oral Liq UDC PO ×3 (08:51→21:14)
--- NOTE | 2023-08-07 08:53 | P.PN_ITS ---
Subjective 2 Subjective: feels better on TPN Medications: Reviewed: Yes Vitals/I&O/Wt Last Vital Signs Temp 98.4 F 08/07/23 07:18 Pulse 76 08/07/23 08:22 Resp 16 08/07/23 08:22 BP 117/68 08/07/23 07:18 Pulse Ox 94 08/07/23 08:22 O2 Del Method Room Air 08/07/23 08:22 08/06/23 08/07/23 08/07/23 22:59 06:59 14:59 Intake Total 1014.183 / 2223.833 1000 / 3223.833 1055 / 1055 Output Total 300 / 850 750 / 1600 200 / 200 Balance 714.183 / 1373.833 250 / 1623.833 855 / 855 Weight last 48 hrs Weight 87.861 kg Weight 86.438 kg Physical Exam 2 Narrative: awake ,alert No distress s1s2 RRR per report Lungs clear per report No edema Urinary Catheter Management: Mcgraw: Cath Placed During This Visit: yes Reason for Continuing Indwelling Catheter: Other Urinary Catheter Date of Insertion: 08/04/23 Urinary Catheter Time of Insertion: 00:10 Data 08/07/23 02:43 08/07/23 02:43 Micro: Microbiology 08/04/23 17:25 Urine Culture - Final Urine,Clean Catch A&P Assessment and plan (1) RUBI (acute kidney injury): 1. Acute on chronic kidney disease: Baseline creatinine is in the mid 1 range, creatinine was 1.7 at the time of recent discharge about 2 weeks ago. Patient has solitary kidney due to prior nephrectomy from renal cell cancer. -Patient now has severe RUBI with a creatinine of 5.6 on presentation in the setting of poor p.o. intake, nausea vomiting. -Agree with fluid resuscitation currently on TPN, -Renal fxn improving -Avoid nephrotoxins and IV contrast studies -Very high BUN noted due to prerenal azotemia and possible GI bleed, improved 2. Hypernatremia: On d5w , monitor 3. Severe nausea vomiting decreased p.o. intake: , s/p EGD, On TPN currently 4. Metabolic acidosis: Mild, continue to monitor Patient evaluated using audiovisual cart. Time spent 40 minutes. Attestations 2 Medical Necessity Statement*: PER LIONEL Coding Level of Care Code Acute Code for Chg Fwd Diagnoses RUBI (acute kidney injury) N17.9
--- NOTE | 2023-08-07 14:10 | PC.NURSE ---
This RN walks down the hallway and smells cigarette smoke. Walks into pt room where he confirms that he had been smoking in the room. This RN takes cigarettes from pt friend and holds them at the nurses station until family leaves. Educates pt on smoking cigarettes in the hospital setting. Notifies Dr. Palacios.
--- NOTE | 2023-08-07 15:11 | P.PN_ITS ---
Subjective 2 Subjective: Urine test, labs appreciated. On examination patient seen laying comfortably in bed. Denies any nausea but still having episodes of having to spit up vomiting. Denies any abdominal pain. Currently not passing flatus. Later in the day patient was seen smoking cigarettes in the room at which time his cigarettes were confiscated. He was counseled in detail not to smoke at least while being in the hospital as it is quite hazard. Medications: Reviewed: Yes Vitals/I&O/Wt Last Vital Signs Temp 99.1 F 08/07/23 11:23 Pulse 82 08/07/23 11:23 Resp 16 08/07/23 11:23 BP 109/62 08/07/23 11:23 Pulse Ox 94 08/07/23 11:23 O2 Del Method Room Air 08/07/23 11:23 08/07/23 08/07/23 08/07/23 06:59 14:59 22:59 Intake Total 1000 / 3223.833 2055 / 2055 Output Total 750 / 1600 700 / 700 Balance 250 / 8576.619 9339 / 1355 Weight last 48 hrs Weight 87.861 kg Weight 86.438 kg Physical Exam 2 Narrative: Clear secretions in a basin. Const: COMMON NORMALS: patient oriented x3 and alert GENERAL APPEARANCE: c ooperative ORIENTATION/CONSCIOUSNESS: Yes awake HENMT: COMMON NORMALS: oropharynx normal Neck/C-Spine: COMMON NORMALS: no JVD Resp: COMMON NORMALS: normal respiratory effort and clear to auscultation bilaterally AUSCULTATION: clear to auscultation bilaterally Cardio: COMMON NORMALS: no JVD, regular rhythm, S1 normal heart sound present, S2 normal heart sound present and No murmurs present (Cardio) RHYTHM: regular rhythm HEART SOUNDS: S1 normal heart sound present and S2 normal heart sound present GI: COMMON NORMALS: Normal to inspection, nondistended, normoactive bowel sounds present, Soft to palpation and non-tender PALPATION: Yes Soft to palpation Extremity: COMMON NORMALS: no joint enlargement and no pedal edema Neuro: COMMON NORMALS: patient oriented x3 and moves all extremities S ENSORIUM/ORIENTATION: Yes alert Skin: COMMON NORMALS: no rashes or lesions noted GENERAL SKIN EXAM: no rashes or lesions noted Urinary Catheter Management: Mcgraw: Cath Placed During This Visit: yes Reason for Continuing Indwelling Catheter: Other Urinary Catheter Date of Insertion: 08/04/23 Urinary Catheter Time of Insertion: 00:10 Data 08/07/23 02:43 08/07/23 02:43 A&P Assessment and plan (1) Nausea and vomiting: (2) Gastritis: Qualifiers: Chronicity: acute Gastritis bleeding: without bleeding Gastritis type: unspecified gastritis Qualified Code(s): K29.00 - Acute gastritis without bleeding (3) Hypernatremia: (4) Acute renal failure: (5) Amphetamine abuse, episodic: (6) GERD (gastroesophageal reflux disease): Qualifiers: Esophagitis presence: esophagitis presence not specified Qualified Code(s): K21.9 - Gastro-esophageal reflux disease without esophagitis (7) Abdominal pain: Qualifiers: Abdominal location: epigastric Qualified Code(s): R10.13 - Epigastric pain (8) Single kidney: (9) Dehydration: (10) High anion gap metabolic acidosis: (11) Sepsis: Plan Nausea and vomiting: Severe pangastritis with gastric outlet obstruction: Post endoscopy. Appreciate surgical recommendations. Continue with conservative treatment while keeping patient NPO. Continue with TPN. Continue with Protonix twice daily, Carafate ACHS. Zofran as needed, Reglan scheduled. Advance diet very gradually. Will consult with surgery team. As patient is on TPN will monitor electrolytes. High risk for refeeding syndrome. Acute renal failure: History of single kidney. Appreciate nephrology recommendations. Continue with IV fluids as above. Stop D5W. Renal function improving. Sodium levels improved. Continue with IV Zosyn for now given concerns for mild infection though less likely. Polysubstance abuse:Denies ever injection recreational drug use. Confirms methamphetamine use but states he smokes a small amount of it. Encouraged him complete abstinence, discussed risks of amphetamine use including organ ischemia. Dangers even in small amount. He verbalized understanding, states intends not to use it anymore and that it will not be a problem for him to stop. Full code N.p.o. SCDs for DVT prophylaxis Protonix will be sufficient for PUD prophylaxis. Attestations 2 Medical Necessity Statement*: Requires further hospitalization for management of intractable nausea vomiting leading to dehydration and acute kidney injury in a patient with single kidney in setting of severe lange gastritis with concerns for gastric outlet obstruction Diagnoses Nausea and vomiting R11.2 Gastritis K29.00 Chronicity: acute Gastritis bleeding: without bleeding Gastritis type: unspecified gastritis Hypernatremia E87.0 Acute renal failure N17.9 Amphetamine abuse, episodic F15.10 Gastroesophageal reflux disease, unspecified whether esophagitis present K21.9 Esophagitis presence: esophagitis presence not specified Epigastric pain R10.13 Abdominal location: epigastric Single kidney Z90.5 Dehydration E86.0 High anion gap metabolic acidosis E87.29 Sepsis A41.9
[2023-08-07] MEDS: LORazepam 2 mg/mL INJ 10 mL MDV 0.5 MG IVP (23:50)
[2023-08-08] VITALS (9 sets, daily range): BP systolic 107–124; BP diastolic 68–84; PULSE 77–98; RESP 16–18; TEMP 36.4–37.1; O2SAT 93–97
[2023-08-08] MEDS: metoclopramide 5 mg/mL SDV 2 mL IVP ×4 (03:46→21:13)
[2023-08-08 05:15] LABS: Basophils % 0.3 %; Eosinophils # 0.4 10^3/uL (0.0-0.8); Hematocrit 45.2 % (37-53); Lymphocytes # 1.5 10^3/uL (0.8-4.8); Lymphocytes % 14.6 %; Mean Corpuscular HGB Conc 32.1 g/dL (30-55); Mean Corpuscular Hemoglobin 31.2 pg (27-33); Mean Corpuscular Volume 97.2 fl (82-101); Mean Platelet Volume 12.9 fL (7.4-10.4); Monocytes # 0.7 10^3/uL (0.2-0.9); Monocytes % 6.5 %; Neutrophils # 7.82 10^3/uL (1.8-7.7); Nucleated Red Blood Cells % 0 %; Platelet Count 241 10^3/cmm (157-399); Red Blood Count 4.65 10^6/uL (3.85-5.65); Red Cell Distribution Width 12.9 % (12.1-15.1); White Blood Count 10.56 10^3/uL (3.29-11.43)
[2023-08-08 05:42] LABS: Alanine Aminotransferase 29 U/L (0-41); Albumin Level 3.2 g/dL (3.5-5.2); Alkaline Phosphatase 154 U/L (40-130); Aspartate Amino Transferase 30 U/L (0-40); Blood Urea Nitrogen 40 mg/dL (8-23); Calcium 8.8 mg/dL (8.5-10.5); Carbon Dioxide 21 mmol/L (22-29); Chloride 114 mmol/L (98-107); Creatinine Clr Calc Pharmacy 59.3071; Globulin 3.4 g/dL (1.3-4.6); Glomerular Filtration Rate 50.4 mL/min (90-130); Glucose 109 mg/dL (65-115); Osmolality Calculated 310 mOsm/kg (285-295); Sodium 145 mmol/L (136-145); Total Bilirubin 0.9 mg/dL (0.15-1.2); Total Protein 6.6 g/dL (6.6-8.7)
[2023-08-08] MEDS: piperacillin-tazobactam 3.375 GM in sodium chloride 0.9% (plus) 50 ML IV ×3 (08:35→23:22)
[2023-08-08] MEDS: sucralfate 1 gm/10 mL Oral Liq UDC PO ×3 (08:35→21:07)
[2023-08-08] MEDS: pantoprazole 40 mg SDV IVP ×2 (08:35→17:05)
--- NOTE | 2023-08-08 09:16 | CT_ITS ---
WS: [id number] Examination: CT abdomen pelvis w con* [id number] Reason for Exam: Gastric outlet obs Date: August 08, 2023 Comparison: August 03, 2023 DLP: 569.[address] scans at [facility] use at least one of these dose optimization techniques: automated e xposure control; mA and/or kV adjustment per patient size (includes targeted exams where dose is matc hed to clinical indication); or iterative reconstruction. Findings: The heart is not enlarged. There is no pleural effusion. The liver is normal in size and appearance. There is no mass or biliary duct dilatation. The portal v ein is patent. The gallbladder is present. The spleen is unremarkable There is no adrenal mass. The right kidney is normal in size there is no stone, hydronephrosis or mass. There is asymmetric den sity within the upper pole. The left kidney has been removed. I see no soft tissue density to suggest residual or recurrent tumor . The aorta is normal in size with limited atherosclerotic change. The pancreas is normal in size. The pancreas along with small bowel is repositioned posteriorly in li ght of the patient's nephrectomy. There is a hiatal hernia. There is reflux of contrast into the esophagus. The oral contrast has not emptied from the stomach. The stomach is abnormally thick walled at the level of the body and antrum. There is mild stranding o r inflammation identified anterior to the greater curvature near the antrum. This was present previou sly. Scattered barney hepatis and upper abdominal lymph nodes are noted. There is no small bowel obstruction. There is no free air. The urinary bladder is abnormally thick walled. A Mcgraw catheter and air is noted within the bladder and bladder wall. The wall is mildly irregular. Impression: Status post left nephrectomy. I see no evidence to suggest recurrent or residual tumor. Asymmetric decreased nephrogram in the upper pole of the right kidney. Infectious/inflammatory proces s or infiltrative process could have this appearance. The gastric wall is abnormally thickened. There is stranding/inflammatory change seen anterior to the stomach. While gastritis could have this appearance and infiltrative/malignant process could as well . The urinary bladder is abnormally thick walled. There appears to be droplets of air within the urinar y bladder wall. Inflammatory changes are suspected. This is new from the previous study. I discussed the above findings with the Dr. Palacios at 1:43 p.m. August 08, 2023.
[2023-08-08] MEDS: nicotine 14 mg Patch 1 PATCH TRANSDERMA (09:43)
[2023-08-08] MEDS: AA-Dex 4.25%-5% w/Lytes 1,000 ML with multivitamin inj 5 ML 83 ML IV ×2 (09:44→21:26)
[2023-08-08] MEDS: HYDROmorphone 1 mg/mL INJ 1 mL 0.5 MG IVP ×2 (10:05→17:39)
[2023-08-08] MEDS: iohexol 350 mg/mL 500 mL Btl (per mL) PO (10:33)
--- NOTE | 2023-08-08 12:19 | P.PN_ITS ---
Subjective 2 Subjective: Overnight patient had ice chips. As per the nurse patient had episodes of vomiting after the ice chip though as per the patient he is feeling okay but does complain of nausea and vomiting today. Denies any headache. Has remained hemodynamically stable and afebrile. On room air. Medications: Reviewed: Yes Vitals/I&O/Wt Last Vital Signs Temp 97.6 F 08/08/23 11:42 Pulse 84 08/08/23 11:42 Resp 16 08/08/23 11:42 BP 109/72 08/08/23 11:42 Pulse Ox 97 08/08/23 11:42 O2 Del Method Room Air 08/08/23 11:42 08/07/23 08/08/23 08/08/23 22:59 06:59 14:59 Intake Total 1055 / 3110 50 / 3160 1005 / 1005 Output Total 875 / 1575 200 / 1775 Balance 180 / 1535 -150 / 1385 1005 / 1005 Weight last 48 hrs Weight 87.725 kg Weight 87.861 kg Physical Exam 2 Narrative: Foamy secretions in basin with orange residue Const: COMMON NORMALS: patient oriented x3 and alert GENERAL APPEARANCE: c ooperative ORIENTATION/CONSCIOUSNESS: Yes awake HENMT: COMMON NORMALS: oropharynx normal Neck/C-Spine: COMMON NORMALS: no JVD Resp: COMMON NORMALS: normal respiratory effort and clear to auscultation bilaterally AUSCULTATION: clear to auscultation bilaterally Cardio: COMMON NORMALS: no JVD, regular rhythm, S1 normal heart sound present, S2 normal heart sound present and No murmurs present (Cardio) RHYTHM: regular rhythm HEART SOUNDS: S1 normal heart sound present and S2 normal heart sound present GI: COMMON NORMALS: Normal to inspection, nondistended, normoactive bowel sounds present, Soft to palpation and non-tender PALPATION: Yes Soft to palpation Extremity: COMMON NORMALS: no joint enlargement and no pedal edema Neuro: COMMON NORMALS: patient oriented x3 and moves all extremities S ENSORIUM/ORIENTATION: Yes alert Skin: COMMON NORMALS: no rashes or lesions noted GENERAL SKIN EXAM: no rashes or lesions noted Urinary Catheter Management: Mcgraw: Cath Placed During This Visit: yes Reason for Continuing Indwelling Catheter: Acute Urinary Retention or Obstruction Urinary Catheter Date of Insertion: 03/29/24 Urinary Catheter Time of Insertion: 00:10 Data 08/08/23 04:28 08/08/23 04:28 A&P Assessment and plan (1) Nausea and vomiting: (2) Gastritis: Qualifiers: Chronicity: acute Gastritis bleeding: without bleeding Gastritis type: unspecified gastritis Qualified Code(s): K29.00 - Acute gastritis without bleeding (3) Hypernatremia: (4) Acute renal failure: (5) Amphetamine abuse, episodic: (6) GERD (gastroesophageal reflux disease): Qualifiers: Esophagitis presence: esophagitis presence not specified Qualified Code(s): K21.9 - Gastro-esophageal reflux disease without esophagitis (7) Abdominal pain: Qualifiers: Abdominal location: epigastric Qualified Code(s): R10.13 - Epigastric pain (8) Single kidney: (9) Dehydration: (10) High anion gap metabolic acidosis: (11) Sepsis: Plan Nausea and vomiting: Severe pangastritis with gastric outlet obstruction: Post endoscopy. Appreciate surgical recommendations. Continue with conservative treatment while keeping patient NPO. Continue with TPN. Continue with Protonix twice daily, Carafate ACHS. Zofran as needed, Reglan scheduled. Advance diet very gradually. Will consult with surgery team. As patient is on TPN will monitor electrolytes. High risk for refeeding syndrome. Acute renal failure: History of single kidney. Appreciate nephrology recommendations. Continue with IV fluids as above. Stop D5W. Renal function improving. Sodium levels improved. Continue with IV Zosyn for now given concerns for mild infection though less likely. Polysubstance abuse:Denies ever injection recreational drug use. Confirms methamphetamine use but states he smokes a small amount of it. Encouraged him complete abstinence, discussed risks of amphetamine use including organ ischemia. Dangers even in small amount. He verbalized understanding, states intends not to use it anymore and that it will not be a problem for him to stop. Plan for the day: Concerns for gastric outlet obstruction in setting of severe lange gastritis. Follow-up pathology. Discussed in detail with surgery. Possible plan for repeat endoscopy. For now we will repeat CT abdomen pelvis with IV and oral contrast. Will plan on endoscopy as per the result of CT scan. Continue with NPO. Patient might need Dobbhoff versus G-tube placement. Continue with IV Protonix and Carafate. Continue with TPN. Renal functions back to baseline. Blood pressure stable. Patient again counseled against smoking. Full code N.p.o. SCDs for DVT prophylaxis Protonix will be sufficient for PUD prophylaxis. Attestations 2 Medical Necessity Statement*: Requires further hospitalization for management of intractable nausea and vomiting in setting of lange gastritis leading to gastric outlet obstruction while malignancy is ruled out Diagnoses Nausea and vomiting R11.2 Gastritis K29.00 Chronicity: acute Gastritis bleeding: without bleeding Gastritis type: unspecified gastritis Hypernatremia E87.0 Acute renal failure N17.9 Amphetamine abuse, episodic F15.10 Gastroesophageal reflux disease, unspecified whether esophagitis present K21.9 Esophagitis presence: esophagitis presence not specified Epigastric pain R10.13 Abdominal location: epigastric Single kidney Z90.5 Dehydration E86.0 High anion gap metabolic acidosis E87.29 Sepsis A41.9
[2023-08-08] MEDS: iohexol 350 mg/mL 500 mL Btl (per mL) IV (12:56)
--- NOTE | 2023-08-08 13:20 | P.PN_ITS ---
Subjective 2 Subjective: doing well Medications: Reviewed: Yes Vitals/I&O/Wt Last Vital Signs Temp 97.6 F 08/08/23 11:42 Pulse 84 08/08/23 11:42 Resp 16 08/08/23 11:42 BP 109/72 08/08/23 11:42 Pulse Ox 97 08/08/23 11:42 O2 Del Method Room Air 08/08/23 11:42 08/07/23 08/08/23 08/08/23 22:59 06:59 14:59 Intake Total 1055 / 3110 50 / 3160 1055 / 1055 Output Total 875 / 1575 200 / 1775 Balance 180 / 1535 -150 / 1385 1055 / 1055 Weight last 48 hrs Weight 87.725 kg Weight 87.861 kg Physical Exam 2 Narrative: awake ,alert No distress s1s2 RRR per report Lungs clear per report No edema Urinary Catheter Management: Mcgraw: Cath Placed During This Visit: yes Reason for Continuing Indwelling Catheter: Acute Urinary Retention or Obstruction Urinary Catheter Date of Insertion: 08/04/23 Urinary Catheter Time of Insertion: 00:10 Data 08/08/23 04:28 08/08/23 04:28 A&P Assessment and plan (1) RUBI (acute kidney injury): 1. Acute on chronic kidney disease: Baseline creatinine is in the mid 1 range, creatinine was 1.7 at the time of recent discharge about 2 weeks ago. Patient has solitary kidney due to prior nephrectomy from renal cell cancer. -Patient developed severe RUBI with a creatinine of 5.6 on presentation in the setting of poor p.o. intake, nausea vomiting. - currently on TPN, -Renal fxn improving -Avoid nephrotoxins and IV contrast studies 2. Hypernatremia: improved 3. Severe nausea vomiting decreased p.o. intake: , s/p EGD, On TPN currently 4. Metabolic acidosis: Mild, continue to monitor Patient evaluated using audiovisual cart. Time spent 40 minutes. Attestations 2 Medical Necessity Statement*: per billie Coding Level of Care Code Acute Code for Chg Fwd Diagnoses RUBI (acute kidney injury) N17.9
--- NOTE | 2023-08-08 13:46 | XR_ITS ---
WS: [id number] Examination: XR KUB portable 60015 Reason for Exam: gastric outlet obs, post oral contrast Date: August 08, 2023 Comparison: None. Findings: Air and stool are seen within the colon. There are no abnormally distended loops of small bowel Contrast is identified within the single right kidney and collecting system. Contrast is identified w ithin decompressed bladder. The bladder wall is mildly trabeculated Contrast is identified within the stomach from the CT. Small bowel contrast is not definitely identif ied Lower lumbar degenerative changes are noted. Impression: The CT contrast remains within the stomach. This may represent gastric outlet obstruction or delayed gastric motility.
--- NOTE | 2023-08-08 15:49 | P.PN_ITS ---
Subjective 2 Subjective: Patient seen and examined. He is still not tolerating oral intake. He vomited earlier today. Pathology still pending Vitals/I&O/Wt Last Vital Signs Temp 97.5 F L 08/09/23 07:43 Pulse 79 08/09/23 08:33 Resp 16 08/09/23 08:33 BP 112/75 08/09/23 07:43 Pulse Ox 94 08/09/23 08:33 O2 Del Method Room Air 08/09/23 08:33 08/08/23 08/09/23 08/09/23 22:59 06:59 14:59 Intake Total 1021.1 / 2126.1 50 / 2176.1 994.617 / 994.617 Output Total 650 / 650 850 / 1500 Balance 371.1 / 1476.1 -800 / 676.1 994.617 / 994.617 Weight last 48 hrs Weight 191 lb 2 oz Weight 193 lb 6.4 oz Physical Exam 2 Narrative: General: No acute distress, awake alert and oriented x 3 Abdomen: Soft, nondistended, mild epigastric tenderness, no guarding rebound or masses Urinary Catheter Management: Mcgraw: Cath Placed During This Visit: yes Reason for Continuing Indwelling Catheter: Other Urinary Catheter Date of Insertion: 08/04/23 Urinary Catheter Time of Insertion: 00:10 Data 08/09/23 04:50 08/09/23 04:50 Micro: Microbiology 08/03/23 20:57 Blood Culture - Final Blood NO GROWTH AFTER 5 DAYS 08/03/23 20:54 Blood Culture - Final Blood NO GROWTH AFTER 5 DAYS A&P Assessment and plan (1) Gastritis and gastroduodenitis with hemorrhage: (2) Gastric outlet obstruction: (3) Ulcerative esophagitis: Plan Await pathology results Continue TPN Possible EGD with repeat biopsies tomorrow versus open jejunostomy tube placement depending on pathology results Medical management per hospitalist Attestations 2 Medical Necessity Statement*: Per primary Coding Level of Care Code 48112 Diagnoses Gastritis and gastroduodenitis with hemorrhage K29.71; K29.91 Gastric outlet obstruction K31.1 Ulcerative esophagitis K22.10
[2023-08-09] VITALS (19 sets, daily range): BP systolic 102–159; BP diastolic 64–99; PULSE 75–102; RESP 14–18; TEMP 36.4–37.1; O2SAT 92–99
[2023-08-09] MEDS: HYDROmorphone 1 mg/mL INJ 1 mL 0.5 MG IVP (01:26)
[2023-08-09] MEDS: metoclopramide 5 mg/mL SDV 2 mL IVP ×4 (03:26→20:46)
[2023-08-09 04:55] LABS: Basophils % 0.3 %; Eosinophils # 0.4 10^3/uL (0.0-0.8); Eosinophils % 3.5 %; Hematocrit 44.7 % (37-53); Lymphocytes # 1.5 10^3/uL (0.8-4.8); Lymphocytes % 13.7 %; Mean Corpuscular HGB Conc 32.4 g/dL (30-55); Mean Corpuscular Hemoglobin 31.2 pg (27-33); Mean Corpuscular Volume 96.1 fl (82-101); Mean Platelet Volume 12.4 fL (7.4-10.4); Monocytes # 0.8 10^3/uL (0.2-0.9); Monocytes % 6.7 %; Neutrophils # 8.37 10^3/uL (1.8-7.7); Neutrophils % 75.2 %; Nucleated Red Blood Cells % 0 %; Platelet Count 252 10^3/cmm (157-399); Red Blood Count 4.65 10^6/uL (3.85-5.65); White Blood Count 11.14 10^3/uL (3.29-11.43)
[2023-08-09 05:15] LABS: Alanine Aminotransferase 43 U/L (0-41); Albumin Level 3.2 g/dL (3.5-5.2); Alkaline Phosphatase 173 U/L (40-130); Aspartate Amino Transferase 38 U/L (0-40); Blood Urea Nitrogen 33 mg/dL (8-23); Carbon Dioxide 21 mmol/L (22-29); Chloride 112 mmol/L (98-107); Creatinine Clr Calc Pharmacy 63.5517; Globulin 3.6 g/dL (1.3-4.6); Glomerular Filtration Rate 54.9 mL/min (90-130); Glucose 111 mg/dL (65-115); Osmolality Calculated 304 mOsm/kg (285-295); Sodium 143 mmol/L (136-145); Total Bilirubin 0.8 mg/dL (0.15-1.2); Total Protein 6.8 g/dL (6.6-8.7)
[2023-08-09] MEDS: piperacillin-tazobactam 3.375 GM in sodium chloride 0.9% (plus) 50 ML IV ×3 (08:10→23:59)
[2023-08-09] MEDS: sucralfate 1 gm/10 mL Oral Liq UDC PO ×2 (08:10→20:45)
[2023-08-09] MEDS: nicotine 14 mg Patch 1 PATCH TRANSDERMA (08:10)
[2023-08-09] MEDS: pantoprazole 40 mg SDV IVP ×2 (08:24→17:18)
[2023-08-09] MEDS: AA-Dex 4.25%-5% w/Lytes 1,000 ML with multivitamin inj 5 ML 83 ML IV (09:25)
--- NOTE | 2023-08-09 09:51 | P.PN_ITS ---
Subjective 2 Subjective: Patient seen and examined. Still not tolerating oral intake Vitals/I&O/Wt Last Vital Signs Temp 97.5 F L 08/09/23 07:43 Pulse 79 08/09/23 08:33 Resp 16 08/09/23 08:33 BP 112/75 08/09/23 07:43 Pulse Ox 94 08/09/23 08:33 O2 Del Method Room Air 08/09/23 08:33 08/08/23 08/09/23 08/09/23 22:59 06:59 14:59 Intake Total 1021.1 / 2126.1 50 / 2176.1 994.617 / 994.617 Output Total 650 / 650 850 / 1500 Balance 371.1 / 1476.1 -800 / 676.1 994.617 / 994.617 Weight last 48 hrs Weight 191 lb 2 oz Weight 193 lb 6.4 oz Physical Exam 2 Narrative: No acute distress, abdomen soft, nondistended, mild epigastric tenderness Urinary Catheter Management: Mcgraw: Cath Placed During This Visit: yes Reason for Continuing Indwelling Catheter: Other Urinary Catheter Date of Insertion: 08/04/23 Urinary Catheter Time of Insertion: 00:10 Data 08/09/23 04:50 08/09/23 04:50 Micro: Microbiology 08/03/23 20:57 Blood Culture - Final Blood NO GROWTH AFTER 5 DAYS 08/03/23 20:54 Blood Culture - Final Blood NO GROWTH AFTER 5 DAYS A&P Assessment and plan (1) Gastritis and gastroduodenitis with hemorrhage: (2) Gastric outlet obstruction: (3) Ulcerative esophagitis: Plan Preliminary pathology results out. I spoke with the pathologist this morning. No evidence of malignancy but diffuse ulceration seen. EGD with biopsy and Dobbhoff tube placement today The risks and benefits of the procedure, including bleeding, infection, intestinal perforation requiring surgery, missed lesion were explained to the patient. The patient is understanding of the risks and wishes to proceed. Attestations 2 Medical Necessity Statement*: Per primary Coding Level of Care Code Acute Code for Chg Fwd Diagnoses Gastritis and gastroduodenitis with hemorrhage K29.71; K29.91 Gastric outlet obstruction K31.1 Ulcerative esophagitis K22.10
--- NOTE | 2023-08-09 11:19 | P.PN_ITS ---
Subjective 2 Subjective: No acute events overnight. Patient has remained hemodynamically stable and afebrile. Still not able to tolerate oral diet. Final pathology of EGD biopsy still awaited. Medications: Reviewed: Yes Vitals/I&O/Wt Last Vital Signs Temp 97.5 F L 08/09/23 07:43 Pulse 79 08/09/23 08:33 Resp 16 08/09/23 08:33 BP 112/75 08/09/23 07:43 Pulse Ox 94 08/09/23 08:33 O2 Del Method Room Air 08/09/23 08:33 08/08/23 08/09/23 08/09/23 22:59 06:59 14:59 Intake Total 1021.1 / 2126.1 50 / 2176.1 994.617 / 994.617 Output Total 650 / 650 850 / 1500 Balance 371.1 / 1476.1 -800 / 676.1 994.617 / 994.617 Weight last 48 hrs Weight 86.693 kg Weight 87.725 kg Physical Exam 2 Narrative: Foamy secretions in basin with orange residue Const: COMMON NORMALS: patient oriented x3 and alert GENERAL APPEARANCE: c ooperative ORIENTATION/CONSCIOUSNESS: Yes awake HENMT: COMMON NORMALS: oropharynx normal Neck/C-Spine: COMMON NORMALS: no JVD Resp: COMMON NORMALS: normal respiratory effort and clear to auscultation bilaterally AUSCULTATION: clear to auscultation bilaterally Cardio: COMMON NORMALS: no JVD, regular rhythm, S1 normal heart sound present, S2 normal heart sound present and No murmurs present (Cardio) RHYTHM: regular rhythm HEART SOUNDS: S1 normal heart sound present and S2 normal heart sound present GI: COMMON NORMALS: Normal to inspection, nondistended, normoactive bowel sounds present, Soft to palpation and non-tender PALPATION: Yes Soft to palpation Extremity: COMMON NORMALS: no joint enlargement and no pedal edema Neuro: COMMON NORMALS: patient oriented x3 and moves all extremities S ENSORIUM/ORIENTATION: Yes alert Skin: COMMON NORMALS: no rashes or lesions noted GENERAL SKIN EXAM: no rashes or lesions noted Urinary Catheter Management: Mcgraw: Cath Placed During This Visit: yes Reason for Continuing Indwelling Catheter: Other Urinary Catheter Date of Insertion: 08/04/23 Urinary Catheter Time of Insertion: 00:10 Data 08/09/23 04:50 08/09/23 04:50 Micro: Microbiology 08/03/23 20:57 Blood Culture - Final Blood NO GROWTH AFTER 5 DAYS 08/03/23 20:54 Blood Culture - Final Blood NO GROWTH AFTER 5 DAYS A&P Assessment and plan (1) Nausea and vomiting: (2) Gastritis: Qualifiers: Chronicity: acute Gastritis bleeding: without bleeding Gastritis type: unspecified gastritis Qualified Code(s): K29.00 - Acute gastritis without bleeding (3) Hypernatremia: (4) Acute renal failure: (5) Amphetamine abuse, episodic: (6) GERD (gastroesophageal reflux disease): Qualifiers: Esophagitis presence: esophagitis presence not specified Qualified Code(s): K21.9 - Gastro-esophageal reflux disease without esophagitis (7) Abdominal pain: Qualifiers: Abdominal location: epigastric Qualified Code(s): R10.13 - Epigastric pain (8) Single kidney: (9) Dehydration: (10) High anion gap metabolic acidosis: (11) Sepsis: Plan Nausea and vomiting: Severe pangastritis with gastric outlet obstruction: Post endoscopy. Appreciate surgical recommendations. Continue with TPN. Continue with Protonix twice daily, Carafate ACHS. Zofran as needed, Reglan scheduled. As patient is on TPN will monitor electrolytes. High risk for refeeding syndrome. Appreciate CT abdomen pelvis done yesterday along with KUB x-ray. Shows persistent edema in the gastric antrum along with symptoms and findings consistent with gastric outlet obstruction even though patient has remained on conservative treatment and n.p.o. for last 4 to 5 days. Final pathology from the biopsy still awaited. High concerns for malignancy. Possible plan for EGD and Dobbhoff versus jejunostomy tube today. Acute renal failure: History of single kidney. Post nephrectomy for RCC Appreciate nephrology recommendations. Continue with IV fluids as above. Stop D5W. Renal function improving. Sodium levels improved. Continue with IV Zosyn for 5-day course though for now given concerns for mild infection though less likely. Polysubstance abuse:Denies ever injection recreational drug use. Confirms methamphetamine use but states he smokes a small amount of it. Encouraged him complete abstinence, discussed risks of amphetamine use including organ ischemia. Dangers even in small amount. He verbalized understanding, states intends not to use it anymore and that it will not be a problem for him to stop. Full code N.p.o. SCDs for DVT prophylaxis Protonix will be sufficient for PUD prophylaxis. Attestations 2 Medical Necessity Statement*: Requires further hospitalization for management of persistent nausea and vomiting with high concerns for gastric outlet obstruction, possible gastric malignancy while patient awaits repeat EGD and possible Dobbhoff versus jejunostomy, parenteral nutrition Diagnoses Nausea and vomiting R11.2 Gastritis K29.00 Chronicity: acute Gastritis bleeding: without bleeding Gastritis type: unspecified gastritis Hypernatremia E87.0 Acute renal failure N17.9 Amphetamine abuse, episodic F15.10 Gastroesophageal reflux disease, unspecified whether esophagitis present K21.9 Esophagitis presence: esophagitis presence not specified Epigastric pain R10.13 Abdominal location: epigastric Single kidney Z90.5 Dehydration E86.0 High anion gap metabolic acidosis E87.29 Sepsis A41.9
--- NOTE | 2023-08-09 11:55 | PC.NURSE ---
Pt taken off the unit to GI Lab at 11:55am via gurney by DANIELA Andrews and DANIELA Underwood.
--- NOTE | 2023-08-09 12:42 | ANES.PREANE2 ---
Pre-Anesthetic Assessment Height/Weight: Height 1.85 m Weight 86.693 kg Temp Pulse Resp BP Pulse Ox O2 Del Method 97.9 F 89 18 121/88 94 Room Air 08/09/23 11:59 08/09/23 11:59 08/09/23 11:59 08/09/23 11:59 08/09/23 11:59 08/09/23 11:59 Operation Date: 08/04/23 14:30 Proposed Procedures p EGD(Not Applicable) - Jean Claude Gilliland DO Operation Date: 08/09/23 13:45 Proposed Procedures p EGD(Not Applicable) - Jean Claude Gilliland DO Was Beta Clara taken within 24 hours: N/A Was Clonidine taken within 24 hours: N/A Last intake: Intake Last Liquid Date 08/04/23 Last Liquid Time 09:30 Social Tobacco and No alcohol Exam alert, oriented x 3, clear to auscultation bilaterally and regular rate & rhythm Airway Mallampati: Class II Dentition: chipped 1 kidney GI gastric outlet obstruction - Anesthetic Plan ASA status: 4 Anesthesia: General Other: GETA for gastric outlet obstruction Risk of > 500 ml blood loss (7ml/kg in children): No Medications/Allergies Home Medications Medication Instructions Recorded Confirmed Last Taken Type sucralfate 1 gram tablet (Carafate) 1 g PO TID 30 days #90 tabs 07/17/23 08/04/23 07/27/23 Rx ondansetron 4 mg disintegrating 4 mg PO QID PRN nausea and 07/25/23 08/04/23 07/27/23 Rx tablet vomiting #30 tabs sucralfate 100 mg/mL oral 10 ml PO BID 30 days #840 mL 07/25/23 08/04/23 07/27/23 Rx suspension pantoprazole 40 mg tablet,delayed 40 mg PO DAILY 08/04/23 08/04/23 Unknown History release Allergies Allergy/AdvReac Type Severity Reaction Status Date / Time fentanyl Allergy ALGY-Rash Verified 08/04/23 08:07 morphine Allergy ALGY-Hives Verified 08/04/23 08:07 oxycodone Allergy unknown Verified 08/04/23 08:07 Current Medications Generic Name Dose Route Start Last Admin Trade Name Freq PRN Reason Stop Dose Admin Hydromorphone HCl 0.5 mg 08/04/23 15:27 08/09/23 01:26 Hydromorphone 1 Mg/Ml Inj 1 Ml IVP 0.5 mg Q6H PRN Administration SEVERE PAIN Multivitamins 5 ml/ AA-Dex 4. 1,005 mls @ 83 mls/hr 08/06/23 08:30 08/09/23 11:57 25%-5% w/Lytes IV 0 mls/hr .Q12H7M ALLEN Infusion Protocol Piperacillin Sod/Tazobactam 50 mls @ 12.5 mls/hr 08/07/23 16:00 08/09/23 11:57 Sod 3.375 gm/ Sodium Chloride IV 0 mls/hr Q8H ALLEN Infusion Protocol Metoclopramide HCl 5 mg 08/05/23 09:45 08/09/23 08:33 Metoclopramide 5 Mg/Ml Sdv 2 Ml IVP 5 mg Q6H ALLEN Administration Nicotine 1 patch 08/04/23 09:00 08/09/23 08:10 Nicotine 14 Mg Patch TRANSDERMA 1 patch DAILY ALLEN Administration Ondansetron HCl 4 mg 08/04/23 01:51 08/06/23 05:12 Ondansetron 2 Mg/Ml Sdv 2 Ml IVP 4 mg Q6H PRN Administration NAUSEA AND VOMITING Pantoprazole Sodium 40 mg 08/04/23 09:00 08/09/23 08:24 Pantoprazole 40 Mg Sdv IVP 40 mg BID ALLEN Administration Sucralfate 1 gm 08/05/23 15:00 08/09/23 08:10 Sucralfate 1 Gm/10 Ml Oral Liq Udc PO 1 gm TID ALLEN Administration PFSH Anesthesia Medical History Single kidney Broken fibula Broken tibia DJD (degenerative joint disease) H/O renal cell cancer Surgical History Hx of colonoscopy 2005 [place] H/O laceration repair (05/22/20) H/O hand surgery S/p nephrectomy Left-sided nephrectomy H/O skin graft Family History Father Cancer stomach Social History Smoking and tobacco/nicotine status: current every day tobacco/nicotine user cigarettes Alcohol intake: never Data Anesthesia 08/09/23 04:50 08/09/23 04:50 Short CBC 08/08/23 08/09/23 Range/Units 04:28 04:50 WBC 10.56 11.14 (3.29-11.43) 10^3/uL Hgb 14.50 14.50 (11.27-16.99) g/dL Hct 45.2 44.7 (37-53) % MCV 97.2 96.1 (82-101) fl Plt Count 241 252 (157-399) 10^3/cmm Neut % (Auto) 74.0 75.2 % Neut # (Auto) 7.82 H 8.37 H (1.8-7.7) 10^3/uL BMP 08/08/23 08/09/23 04:28 04:50 Sodium 145 143 Potassium 4.0 4.0 Chloride 114 H 112 H Carbon Dioxide 21 L 21 L BUN 40 H 33 H Creatinine 1.4 H 1.3 H Glucose 109 111 Calcium 8.8 9.0 Liver Function 08/08/23 08/09/23 Range/Units 04:28 04:50 Total Bilirubin 0.9 0.8 (0.15-1.2) mg/dL AST 30 38 (0-40) U/L ALT 29 43 H (0-41) U/L Alkaline Phosphatase 154 H 173 H (40-130) U/L Albumin 3.2 L 3.2 L (3.5-5.2) g/dL Microbiology 08/03/23 20:57 Blood Culture - Final Blood NO GROWTH AFTER 5 DAYS 08/03/23 20:54 Blood Culture - Final Blood NO GROWTH AFTER 5 DAYS Cardiac Studies: No Data to Display
[2023-08-09] MEDS: sodium chloride 0.9% 1,000 ML 30 ML IV (13:51)
--- NOTE | 2023-08-09 14:41 | XR_ITS ---
WS: [id number] Examination: XR KUB portable [id number] Reason for Exam: POST DOBBHOFF PLACEMENT Date: August 09, 2023 Comparison: August 08, 2023 Findings: A Dobbhoff feeding tube is seen coiled within the body of the stomach with the tip near the region of the pylorus Air and stool seen within the colon. There is gaseous distention of small bowel. Impression: The Dobbhoff is identified within the stomach. The tip is suspected to lie near the pylorus. There is gas distention of bowel.
--- NOTE | 2023-08-09 15:00 | PC.NURSE ---
This nurse received report from DANIELA Andrews in GI lab at [phone].
--- NOTE | 2023-08-09 15:06 | PC.NUTR ---
Initiate enteral nutrition following RD recs below -Nepro 1.8 starting @ 15 ml/hr x24hrs -Advance goal of 50 ml/hr x24hrs once medically appropriate -FWF of 150 ml q4 -taper PPN (50% x1-2hrs) once enteral nutrition is providing >66% of EEN See most recent RD assessment for details
--- NOTE | 2023-08-09 15:10 | ANE.PACU2 ---
Inpatient post-anesthesia follow up: Airway intact: Yes Vital signs: Temperature 97.6 F Pulse Rate 86 Respiratory Rate 16 Blood Pressure 135/91 Pulse Oximetry 94 Oxygen Delivery Me thod Room Air Oxygen Flow Rate Fraction of Inspir ed Oxygen Hydration adequate: Yes Nausea and vomiting: No Pain level: 1 Mental status: Baseline
--- NOTE | 2023-08-09 15:43 | PC.NURSE ---
This nurse assumed care of pt again at 1438. Pt brought up to unit via vicki by DANIELA Gallagher.
--- NOTE | 2023-08-09 15:57 | PC.NURSE ---
Addendum entered by Addie Ruiz LPN 08/09/23 16:33: Per [place], follow his orders for tube feeds. Original Note: This nurse has attempted to reach Dr. Quinn via phone x2 to confirm tube feedings before initiating first feed. There are 2 separate orders in the chart from hospitalist and surgeon. RD has also recommended a different rate of Nepro 1.8 at 15mL/hr. This nurse also needs to confirm whether or not PPN will be resumed as well. This nurse will hold off on feeds until order is verified.
--- NOTE | 2023-08-09 19:06 | PM.PN ---
Subjective Subjective: s/p EGD and J tube placed Medications: Reviewed: Yes Vitals/I&O/Wt Last Vital Signs Temp 97.7 F 08/09/23 15:45 Pulse 91 08/09/23 17:45 Resp 16 08/09/23 17:45 BP 122/86 08/09/23 17:45 Pulse Ox 95 08/09/23 17:45 O2 Del Method Room Air 08/09/23 17:45 08/09/23 08/09/23 08/09/23 06:59 14:59 22:59 Intake Total 50 / 2176.1 1362.176 / 1362.176 810 / 2172.176 Output Total 850 / 1500 0 / 0 500 / 500 Balance -800 / 676.1 1362.176 / 1362.176 310 / 1672.176 Weight last 48 hrs Weight 86.693 kg Weight 87.725 kg Physical Exam Narrative: awake ,alert No distress s1s2 RRR per report Lungs clear per report No edema Urinary Catheter Management: Mcgraw: Cath Placed During This Visit: yes Reason for Continuing Indwelling Catheter: Other Urinary Catheter Date of Insertion: 08/04/23 Urinary Catheter Time of Insertion: 00:10 Data 08/09/23 04:50 08/09/23 04:50 Micro: Microbiology 08/03/23 20:57 Blood Culture - Final Blood NO GROWTH AFTER 5 DAYS 08/03/23 20:54 Blood Culture - Final Blood NO GROWTH AFTER 5 DAYS A&P Assessment and plan (1) RUBI (acute kidney injury): 1. Acute on chronic kidney disease: Baseline creatinine is in the mid 1 range, creatinine was 1.7 at the time of recent discharge about 2 weeks ago. Patient has solitary kidney due to prior nephrectomy from renal cell cancer. -Patient developed severe RUBI with a creatinine of 5.6 on presentation in the setting of poor p.o. intake, nausea vomiting. - currently on TPN, -Renal fxn improving -Avoid nephrotoxins and IV contrast studies 2. Hypernatremia: improved 3. Severe nausea vomiting decreased p.o. intake: , s/p EGD, severe gastritis , s/p J tube placement and TF started 4. Metabolic acidosis: Mild, continue to monitor Patient evaluated using audiovisual cart. Time spent 20 minutes. Plan per [facility] Attestations Medical Necessity Statement*: per [facility] Coding Level of Care Code Acute Code for Chg Fwd Diagnoses RUBI (acute kidney injury) N17.9
[2023-08-10] VITALS (10 sets, daily range): BP systolic 107–125; BP diastolic 75–81; PULSE 75–90; RESP 16–18; TEMP 36.5–37; O2SAT 91–97
[2023-08-10] MEDS: AA-Dex 4.25%-5% w/Lytes 1,000 ML with multivitamin inj 5 ML 83 ML IV ×2 (01:28→12:50)
[2023-08-10] MEDS: HYDROmorphone 1 mg/mL INJ 1 mL 0.5 MG IVP ×3 (01:53→21:07)
[2023-08-10] MEDS: metoclopramide 5 mg/mL SDV 2 mL IVP ×4 (03:36→21:08)
[2023-08-10 06:52] LABS: Basophils % 0.4 %; Eosinophils # 0.2 10^3/uL (0.0-0.8); Eosinophils % 2.5 %; Hematocrit 41.8 % (37-53); Lymphocytes # 1.8 10^3/uL (0.8-4.8); Lymphocytes % 18.2 %; Mean Corpuscular HGB Conc 32.8 g/dL (30-55); Mean Corpuscular Hemoglobin 31.5 pg (27-33); Mean Corpuscular Volume 96.1 fl (82-101); Mean Platelet Volume 12.8 fL (7.4-10.4); Monocytes # 0.6 10^3/uL (0.2-0.9); Monocytes % 6.2 %; Neutrophils # 6.93 10^3/uL (1.8-7.7); Nucleated Red Blood Cells % 0 %; Platelet Count 239 10^3/cmm (157-399); Red Blood Count 4.35 10^6/uL (3.85-5.65); Red Cell Distribution Width 13.1 % (12.1-15.1); White Blood Count 9.63 10^3/uL (3.29-11.43)
[2023-08-10 07:02] LABS: Alanine Aminotransferase 55 U/L (0-41); Albumin Level 3.3 g/dL (3.5-5.2); Alkaline Phosphatase 195 U/L (40-130); Anion Gap 15.2 (5-19); Aspartate Amino Transferase 42 U/L (0-40); Blood Urea Nitrogen 33 mg/dL (8-23); Calcium 8.8 mg/dL (8.5-10.5); Carbon Dioxide 22 mmol/L (22-29); Chloride 111 mmol/L (98-107); Globulin 3.4 g/dL (1.3-4.6); Glomerular Filtration Rate 60.2 mL/min (90-130); Glucose 117 mg/dL (65-115); Osmolality Calculated 306 mOsm/kg (285-295); Potassium 4.2 mmol/L (3.5-5.1); Sodium 144 mmol/L (136-145); Total Bilirubin 0.5 mg/dL (0.15-1.2); Total Protein 6.7 g/dL (6.6-8.7)
--- NOTE | 2023-08-10 08:00 | XR_ITS ---
WS: [id number] Examination: XR KUB portable [id number] Reason for Exam: F/U Dobhoff placement Date: August 10, 2023 Comparison: August 09, 2023 Findings: Again the Dobbhoff feeding tube is seen coiled within the fundus and body of the stomach. The tip is stably positioned near the region of the pylorus Air and stool are seen within the colon. The increased small bowel gas is cleared. Surgical changes are identified over the upper mid abdomen Impression: The Dobbhoff feeding tube is stably positioned. The increased small bowel gas has cleared.
--- NOTE | 2023-08-10 08:18 | P.PN_ITS ---
Subjective 2 Subjective: Patient seen and examined. He reports that he vomited out his Dobbhoff tube this morning and does not want it replaced. Continues to have epigastric abdominal pain. Still no bowel movement Vitals/I&O/Wt Last Vital Signs Temp 97.8 F 08/11/23 07:41 Pulse 79 08/11/23 07:41 Resp 17 08/11/23 07:41 BP 112/76 08/11/23 07:41 Pulse Ox 93 08/11/23 07:41 O2 Del Method Room Air 08/11/23 07:41 08/10/23 08/11/23 08/11/23 22:59 06:59 14:59 Intake Total 1055 / 2048.433 666.717 / 2715.150 Output Total 500 / 650 Balance 1055 / 1898.433 166.717 / 2065.150 Weight last 48 hrs Weight 192 lb 3 oz Weight 192 lb 7 oz Physical Exam 2 Narrative: General: No acute distress, awake alert and oriented x 3 Abdomen: Soft, nondistended, mild epigastric tenderness Urinary Catheter Management: Mcgraw: Cath Placed During This Visit: yes Reason for Continuing Indwelling Catheter: Other Urinary Catheter Date of Insertion: 08/04/23 Urinary Catheter Time of Insertion: 00:10 Data 08/11/23 05:06 08/11/23 05:06 A&P Assessment and plan (1) Gastritis and gastroduodenitis with hemorrhage: (2) Gastric outlet obstruction: (3) Ulcerative esophagitis: Plan Pathology results of gastric biopsies show only ulceration with regeneration, no malignancy. Repeat biopsies not resulted by pathology at Plan is to continue with TPN over the weekend. If he is still failing a liquid diet on Monday, we will pursue jejunostomy tube Attestations 2 Medical Necessity Statement*: Per primary Coding Level of Care Code 02731 Diagnoses Gastritis and gastroduodenitis with hemorrhage K29.71; K29.91 Gastric outlet obstruction K31.1 Ulcerative esophagitis K22.10
[2023-08-10] MEDS: pantoprazole 40 mg SDV IVP ×2 (08:33→17:49)
[2023-08-10] MEDS: piperacillin-tazobactam 3.375 GM in sodium chloride 0.9% (plus) 50 ML IV ×3 (08:42→23:27)
[2023-08-10] MEDS: nicotine 14 mg Patch 1 PATCH TRANSDERMA (08:42)
[2023-08-10] MEDS: sucralfate 1 gm/10 mL Oral Liq UDC PO ×3 (08:42→20:04)
--- NOTE | 2023-08-10 09:36 | PC.NURSE ---
Pt vomited up his dobhoff tube this morning. Tube is fully inact, but no longer in place. Pt does not wish to get it replaced. Dr. Quinn and Dr. Gilliland were notified.
--- NOTE | 2023-08-10 10:13 | PM.PN ---
Subjective Subjective: feeding tube accidentally came out when he had an episode of vomiting Medications: Reviewed: Yes Vitals/I&O/Wt Last Vital Signs Temp 98.6 F 08/10/23 04:54 Pulse 75 08/10/23 08:11 Resp 16 08/10/23 08:47 BP 119/80 08/10/23 07:14 Pulse Ox 93 08/10/23 08:11 O2 Del Method Room Air 08/10/23 08:11 08/09/23 08/10/23 08/10/23 22:59 06:59 14:59 Intake Total 860 / 2222.176 1260.833 / 3483.009 Output Total 500 / 500 600 / 1100 150 / 150 Balance 360 / 1722.176 660.833 / 2383.009 -150 / -150 Weight last 48 hrs Weight 87.288 kg Weight 86.693 kg Physical Exam Narrative: awake ,alert No distress s1s2 RRR per report Lungs clear per report No edema Urinary Catheter Management: Mcgraw: Cath Placed During This Visit: yes Reason for Continuing Indwelling Catheter: Other Urinary Catheter Date of Insertion: 08/04/23 Urinary Catheter Time of Insertion: 00:10 Data 08/10/23 06:19 08/10/23 06:19 A&P Assessment and plan (1) RUBI (acute kidney injury): 1. Acute on chronic kidney disease: Baseline creatinine is in the mid 1 range, creatinine was 1.7 at the time of recent discharge about 2 weeks ago. Patient has solitary kidney due to prior nephrectomy from renal cell cancer. -Patient developed severe RUBI with a creatinine of 5.6 on presentation in the setting of poor p.o. intake, nausea vomiting. - currently on TPN, -Renal fxn improved to baseline -Avoid nephrotoxins and IV contrast studies 2. Hypernatremia: improved 3. Severe nausea vomiting decreased p.o. intake: , s/p EGD, severe gastritis , s/p J tube placement and TF started but feeding tube came out accidentally today 4. Metabolic acidosis: Mild, continue to monitor Patient evaluated using audiovisual cart. Time spent 20 minutes. Plan willsignoff Attestations Medical Necessity Statement*: per billie Coding Level of Care Code Acute Code for [facility] Fwd Diagnoses RUBI (acute kidney injury) N17.9
--- NOTE | 2023-08-10 13:18 | XR_ITS ---
WS: [id number] Examination: XR chest 1V portable [id number] Reason for Exam: Post PICC insertion Date: August 10, 2023 Comparison: June 27, 2023 Findings: There is a PICC noted from the left. The tip lies in the lower superior vena cava The cardiomediastinal silhouette is within normal limits Chronic changes are suspected without failure or effusion. There is no dense consolidation. Impression: The left PICC is well-positioned. No acute lung process is identified. Chronic changes are present.
--- NOTE | 2023-08-10 14:00 | PC.NURSE ---
Triple lumen PICC placed to left brachial vein. Referred to vascular access nurse for PICC placement due to need for TPN. Risks and benefits discussed and informed consent obtained from patient. Pt right hand dominant and requests PICC in left arm. Left arm assessed with left brachial vein measuring 4.5 mm, straight, and apparent best choice for placment. Using sterile technique and MST, left brachial vein accessed x 1 stick. Mid-arm circumference measured 10 cm from left AC 26 cm. Trimmed cath 48 cm with 0 cm external length noted. CXR shows tip in distal SVC, in good position for use per radiologist. Line secured with stat-lock. Insertion site covered with Biopatch and TSM. Report given to bedside nurse, Fabiola.
--- NOTE | 2023-08-10 14:22 | P.PN_ITS ---
Subjective 2 Subjective: No acute events overnight. Patient continued on 30 cc of tube feeds per hour. Today morning he had an episode of vomiting in which Dobbhoff was also pulled out. On examination patient laying comfortably in bed. He denies any nausea. Declines any further episodes of NG tube or Dobbhoff placements. Has remained hemodynamically stable and afebrile. Medications: Reviewed: Yes Vitals/I&O/Wt Last Vital Signs Temp 97.7 F 08/10/23 11:15 Pulse 80 08/10/23 11:15 Resp 17 08/10/23 11:15 BP 107/75 08/10/23 11:15 Pulse Ox 93 08/10/23 11:15 O2 Del Method Room Air 08/10/23 11:15 08/09/23 08/10/23 08/10/23 22:59 06:59 14:59 Intake Total 860 / 2222.176 1260.833 / 3483.009 993.433 / 993.433 Output Total 500 / 500 600 / 1100 150 / 150 Balance 360 / 1722.176 660.833 / 2383.009 843.433 / 843.433 Weight last 48 hrs Weight 87.288 kg Weight 86.693 kg Physical Exam 2 Narrative: Foamy secretions in basin with orange residue Const: COMMON NORMALS: patient oriented x3 and alert GENERAL APPEARANCE: c ooperative ORIENTATION/CONSCIOUSNESS: Yes awake HENMT: COMMON NORMALS: oropharynx normal Neck/C-Spine: COMMON NORMALS: no JVD Resp: COMMON NORMALS: normal respiratory effort and clear to auscultation bilaterally AUSCULTATION: clear to auscultation bilaterally Cardio: COMMON NORMALS: no JVD, regular rhythm, S1 normal heart sound present, S2 normal heart sound present and No murmurs present (Cardio) RHYTHM: regular rhythm HEART SOUNDS: S1 normal heart sound present and S2 normal heart sound present GI: COMMON NORMALS: Normal to inspection, nondistended, normoactive bowel sounds present, Soft to palpation and non-tender PALPATION: Yes Soft to palpation Extremity: COMMON NORMALS: no joint enlargement and no pedal edema Neuro: COMMON NORMALS: patient oriented x3 and moves all extremities S ENSORIUM/ORIENTATION: Yes alert Skin: COMMON NORMALS: no rashes or lesions noted GENERAL SKIN EXAM: no rashes or lesions noted Urinary Catheter Management: Mcgraw: Cath Placed During This Visit: yes Reason for Continuing Indwelling Catheter: Other Urinary Catheter Date of Insertion: 08/04/23 Urinary Catheter Time of Insertion: 00:10 Data 08/10/23 06:19 08/10/23 06:19 A&P Assessment and plan (1) Nausea and vomiting: (2) Gastritis: Qualifiers: Chronicity: acute Gastritis bleeding: without bleeding Gastritis type: unspecified gastritis Qualified Code(s): K29.00 - Acute gastritis without bleeding (3) Hypernatremia: (4) Acute renal failure: (5) Amphetamine abuse, episodic: (6) GERD (gastroesophageal reflux disease): Qualifiers: Esophagitis presence: esophagitis presence not specified Qualified Code(s): K21.9 - Gastro-esophageal reflux disease without esophagitis (7) Abdominal pain: Qualifiers: Abdominal location: epigastric Qualified Code(s): R10.13 - Epigastric pain (8) Single kidney: (9) Dehydration: (10) High anion gap metabolic acidosis: (11) Sepsis: Plan Nausea and vomiting: Severe pangastritis with gastric outlet obstruction: Post endoscopy. Appreciate surgical recommendations. Continue with TPN. Continue with Protonix twice daily, Carafate ACHS. Zofran as needed, Reglan scheduled. As patient is on TPN will monitor electrolytes. High risk for refeeding syndrome. Appreciate CT abdomen pelvis done yesterday along with KUB x-ray. Shows persistent edema in the gastric antrum along with symptoms and findings consistent with gastric outlet obstruction even though patient has remained on conservative treatment and n.p.o. for last 4 to 5 days. Final pathology from the biopsy still awaited. High concerns for malignancy. Possible plan for EGD and Dobbhoff versus jejunostomy tube today. Acute renal failure: History of single kidney. Post nephrectomy for RCC Appreciate nephrology recommendations. Continue with IV fluids as above. Stop D5W. Renal function improving. Sodium levels improved. Continue with IV Zosyn for 5-day course though for now given concerns for mild infection though less likely. Polysubstance abuse:Denies ever injection recreational drug use. Confirms methamphetamine use but states he smokes a small amount of it. Encouraged him complete abstinence, discussed risks of amphetamine use including organ ischemia. Dangers even in small amount. He verbalized understanding, states intends not to use it anymore and that it will not be a problem for him to stop. Plan for the day: EGD done yesterday showed slight improvement in the gastric erythema and gastric edema without any active bleeding. Dobbhoff was placed which came out earlier today morning during episode of nausea. Care discussed in detail with surgical team. Plan to start on clear liquid diet. Patient advised to take multiple small meals and advance very gradually. Eventual plan for possible J-tube placement on Monday patient is agreeable. Plan for PICC line placement and eventual transition to TPN. Patient counseled about multiple small meals. Creatinine trending down to 1.2. Full code Clear liquid diet SCDs for DVT prophylaxis Protonix will be sufficient for PUD prophylaxis. Attestations 2 Medical Necessity Statement*: Requires further hospitalization for management of intractable nausea and vomiting in setting of significant gastritis with high concerns for gastric malignancy with symptoms consistent with gastric outlet obstruction Diagnoses Nausea and vomiting R11.2 Gastritis K29.00 Chronicity: acute Gastritis bleeding: without bleeding Gastritis type: unspecified gastritis Hypernatremia E87.0 Acute renal failure N17.9 Amphetamine abuse, episodic F15.10 Gastroesophageal reflux disease, unspecified whether esophagitis present K21.9 Esophagitis presence: esophagitis presence not specified Epigastric pain R10.13 Abdominal location: epigastric Single kidney Z90.5 Dehydration E86.0 High anion gap metabolic acidosis E87.29 Sepsis A41.9
--- NOTE | 2023-08-10 15:37 | PC.NUTR ---
Transition to TPN after PICC placement following RD recs below -central AA/Dex (09/24) with standard lytes, added MV starting at 43 ml/hr x8hrs then advance to goal of 83 ml/hr x24hrs. -piggyback 20gm 20% lipids x12hrs QD See most recent RD note for details
[2023-08-10] MEDS: AA-Dex 5%-20% w/Lytes 1,000 ML with multivitamin inj 5 ML 43 ML IV (17:06)
[2023-08-11] VITALS (8 sets, daily range): BP systolic 105–114; BP diastolic 60–76; PULSE 73–83; RESP 16–18; TEMP 36.4–37; O2SAT 93–96
[2023-08-11] MEDS: metoclopramide 5 mg/mL SDV 2 mL IVP ×4 (03:21→21:22)
[2023-08-11 05:23] LABS: Basophils # 0.1 10^3/uL (0.0-0.1); Basophils % 0.5 %; Eosinophils # 0.4 10^3/uL (0.0-0.8); Eosinophils % 3.8 %; Hematocrit 43.7 % (37-53); Lymphocytes # 1.8 10^3/uL (0.8-4.8); Lymphocytes % 16.7 %; Mean Corpuscular HGB Conc 30.9 g/dL (30-55); Mean Corpuscular Hemoglobin 31.4 pg (27-33); Mean Corpuscular Volume 101.6 fl (82-101); Monocytes # 0.7 10^3/uL (0.2-0.9); Monocytes % 6.6 %; Neutrophils # 7.88 10^3/uL (1.8-7.7); Neutrophils % 71.8 %; Nucleated Red Blood Cells % 0 %; Platelet Count 231 10^3/cmm (157-399); Red Cell Distribution Width 13.2 % (12.1-15.1)
[2023-08-11 05:46] LABS: Alanine Aminotransferase 56 U/L (0-41); Albumin Level 3.1 g/dL (3.5-5.2); Alkaline Phosphatase 178 U/L (40-130); Anion Gap 14.8 (5-19); Aspartate Amino Transferase 34 U/L (0-40); Blood Urea Nitrogen 27 mg/dL (8-23); Calcium 8.8 mg/dL (8.5-10.5); Carbon Dioxide 21 mmol/L (22-29); Chloride 113 mmol/L (98-107); Creatinine Clr Calc Pharmacy 75.2818; Globulin 3.6 g/dL (1.3-4.6); Glomerular Filtration Rate 66.6 mL/min (90-130); Glucose 112 mg/dL (65-115); Osmolality Calculated 306 mOsm/kg (285-295); Potassium 3.8 mmol/L (3.5-5.1); Sodium 145 mmol/L (136-145); Total Bilirubin 0.4 mg/dL (0.15-1.2); Total Protein 6.7 g/dL (6.6-8.7)
[2023-08-11] MEDS: piperacillin-tazobactam 3.375 GM in sodium chloride 0.9% (plus) 50 ML IV ×2 (08:11→15:57)
[2023-08-11] MEDS: sucralfate 1 gm/10 mL Oral Liq UDC PO ×3 (08:18→21:23)
[2023-08-11] MEDS: nicotine 14 mg Patch 1 PATCH TRANSDERMA (08:18)
--- NOTE | 2023-08-11 08:21 | P.PN_ITS ---
Subjective 2 Subjective: Patient seen and examined. He was still vomiting yesterday and has mild epigastric pain. Still no bowel movement Vitals/I&O/Wt Last Vital Signs Temp 97.8 F 08/11/23 07:41 Pulse 79 08/11/23 07:41 Resp 17 08/11/23 07:41 BP 112/76 08/11/23 07:41 Pulse Ox 93 08/11/23 07:41 O2 Del Method Room Air 08/11/23 07:41 08/10/23 08/11/23 08/11/23 22:59 06:59 14:59 Intake Total 1055 / 2048.433 666.717 / 2715.150 Output Total 500 / 650 Balance 1055 / 1898.433 166.717 / 2065.150 Weight last 48 hrs Weight 192 lb 3 oz Weight 192 lb 7 oz Physical Exam 2 Narrative: General: No acute distress, awake alert and oriented x 3 Abdomen: Soft, nondistended, mild epigastric tenderness but improved Urinary Catheter Management: Mcgraw: Cath Placed During This Visit: yes Reason for Continuing Indwelling Catheter: Other Urinary Catheter Date of Insertion: 08/04/23 Urinary Catheter Time of Insertion: 00:10 Data 08/11/23 05:06 08/11/23 05:06 A&P Assessment and plan (1) Gastritis and gastroduodenitis with hemorrhage: (2) Gastric outlet obstruction: (3) Ulcerative esophagitis: Plan Pathology results of gastric biopsies show only ulceration with regeneration, no malignancy. Repeat biopsies not resulted by pathology at Plan is to continue with TPN over the weekend. If he is still failing a liquid diet on Monday, we will pursue jejunostomy tube I am off today and over the weekend. Another surgeon will be covering Attestations 2 Medical Necessity Statement*: Per primary Coding Level of Care Code 56053 Diagnoses Gastritis and gastroduodenitis with hemorrhage K29.71; K29.91 Gastric outlet obstruction K31.1 Ulcerative esophagitis K22.10
--- NOTE | 2023-08-11 08:49 | PC.NURSE ---
24 hour PICC dressing change complete. Left arm PICC site dry and intact. Minimal amount bleeding noted to Biopatch when removed. No bruising noted. Line secured with stat-lock. Insertion site covered with Biopatch and TSM. TPN infusing without difficulty. Report given to charge nurseCorazon.
[2023-08-11] MEDS: pantoprazole 40 mg SDV IVP (10:35)
[2023-08-11] MEDS: AA-Dex 5%-20% w/Lytes 1,000 ML with multivitamin inj 5 ML 83 ML IV (11:40)
--- NOTE | 2023-08-11 13:29 | P.PN_ITS ---
Subjective 2 Subjective: Had multiple episodes of nausea and vomiting overnight and yesterday after starting on clear liquid diet. Today morning as well vomited when he woke up. Denies any abdominal pain. Has remained hemodynamically stable and afebrile on room air. PICC line placed yesterday. No bowel movements yet Medications: Reviewed: Yes Vitals/I&O/Wt Last Vital Signs Temp 98.0 F 08/11/23 11:13 Pulse 76 08/11/23 08:32 Resp 16 08/11/23 11:13 BP 114/70 08/11/23 11:13 Pulse Ox 95 08/11/23 08:32 O2 Del Method Room Air 08/11/23 08:32 08/10/23 08/11/23 08/11/23 22:59 06:59 14:59 Intake Total 1055 / 2048.433 666.717 / 2715.150 488.283 / 488.283 Output Total 500 / 650 Balance 1055 / 1898.433 166.717 / 2065.150 488.283 / 488.283 Weight last 48 hrs Weight 87.175 kg Weight 87.288 kg Physical Exam 2 Narrative: Foamy secretions in basin with orange residue Const: COMMON NORMALS: patient oriented x3 and alert GENERAL APPEARANCE: c ooperative ORIENTATION/CONSCIOUSNESS: Yes awake HENMT: COMMON NORMALS: oropharynx normal Neck/C-Spine: COMMON NORMALS: no JVD Resp: COMMON NORMALS: normal respiratory effort and clear to auscultation bilaterally AUSCULTATION: clear to auscultation bilaterally Cardio: COMMON NORMALS: no JVD, regular rhythm, S1 normal heart sound present, S2 normal heart sound present and No murmurs present (Cardio) RHYTHM: regular rhythm HEART SOUNDS: S1 normal heart sound present and S2 normal heart sound present GI: COMMON NORMALS: Normal to inspection, nondistended, normoactive bowel sounds present, Soft to palpation and non-tender PALPATION: Yes Soft to palpation Extremity: COMMON NORMALS: no joint enlargement and no pedal edema Neuro: COMMON NORMALS: patient oriented x3 and moves all extremities S ENSORIUM/ORIENTATION: Yes alert Skin: COMMON NORMALS: no rashes or lesions noted GENERAL SKIN EXAM: no rashes or lesions noted Urinary Catheter Management: Mcgraw: Cath Placed During This Visit: yes Reason for Continuing Indwelling Catheter: Other Urinary Catheter Date of Insertion: 08/04/23 Urinary Catheter Time of Insertion: 00:10 Data 08/11/23 05:06 08/11/23 05:06 A&P Assessment and plan (1) Nausea and vomiting: (2) Gastritis: Qualifiers: Chronicity: acute Gastritis bleeding: without bleeding Gastritis type: unspecified gastritis Qualified Code(s): K29.00 - Acute gastritis without bleeding (3) Hypernatremia: (4) Acute renal failure: (5) Amphetamine abuse, episodic: (6) GERD (gastroesophageal reflux disease): Qualifiers: Esophagitis presence: esophagitis presence not specified Qualified Code(s): K21.9 - Gastro-esophageal reflux disease without esophagitis (7) Abdominal pain: Qualifiers: Abdominal location: epigastric Qualified Code(s): R10.13 - Epigastric pain (8) Single kidney: (9) Dehydration: (10) High anion gap metabolic acidosis: (11) Sepsis: Plan Nausea and vomiting: Severe pangastritis with gastric outlet obstruction: Post endoscopy. Appreciate surgical recommendations. Continue with TPN. Continue with Protonix twice daily, Carafate ACHS. Zofran as needed, Reglan scheduled. As patient is on TPN will monitor electrolytes. High risk for refeeding syndrome. Appreciate CT abdomen pelvis done yesterday along with KUB x-ray. Shows persistent edema in the gastric antrum along with symptoms and findings consistent with gastric outlet obstruction even though patient has remained on conservative treatment and n.p.o. for last 4 to 5 days. Final pathology from the biopsy still awaited. High concerns for malignancy. Possible plan for EGD and Dobbhoff versus jejunostomy tube today. Acute renal failure: History of single kidney. Post nephrectomy for RCC Appreciate nephrology recommendations. Continue with IV fluids as above. Stop D5W. Renal function improving. Sodium levels improved. Continue with IV Zosyn for 5-day course though for now given concerns for mild infection though less likely. Polysubstance abuse:Denies ever injection recreational drug use. Confirms methamphetamine use but states he smokes a small amount of it. Encouraged him complete abstinence, discussed risks of amphetamine use including organ ischemia. Dangers even in small amount. He verbalized understanding, states intends not to use it anymore and that it will not be a problem for him to stop. Plan for the day: Failed clear liquid diet trial yesterday. Vomited Dobbhoff catheter. PICC line placed on 08/09. Continue with TPN. Monitor electrolytes. Acute kidney injury has resolved. Follow-up pathology from 08/09 EGD. Appreciate path report from 08/03. Appreciate surgical recommendations. Plan to monitor over the weekend. Patient still not able to tolerate oral diet plan for possible jejunostomy tube on Monday. Monitor renal functions daily. Out of bed to chair, ambulate. Full code N.p.o. SCDs for DVT prophylaxis Protonix will be sufficient for PUD prophylaxis. Attestations 2 Medical Necessity Statement*: Requires further hospitalization for management of intractable nausea and vomiting in setting of severe gastritis with high concerns for malignancy leading to gastric outlet obstruction while conservative treatment is tried before jejunostomy tube Diagnoses Nausea and vomiting R11.2 Gastritis K29.00 Chronicity: acute Gastritis bleeding: without bleeding Gastritis type: unspecified gastritis Hypernatremia E87.0 Acute renal failure N17.9 Amphetamine abuse, episodic F15.10 Gastroesophageal reflux disease, unspecified whether esophagitis present K21.9 Esophagitis presence: esophagitis presence not specified Epigastric pain R10.13 Abdominal location: epigastric Single kidney Z90.5 Dehydration E86.0 High anion gap metabolic acidosis E87.29 Sepsis A41.9
[2023-08-11] MEDS: HYDROmorphone 1 mg/mL INJ 1 mL 0.5 MG IVP ×2 (14:23→20:15)
[2023-08-11] MEDS: ondansetron 2 mg/ML SDV 2 mL 4 MG IVP (20:06)
--- NOTE | 2023-08-11 21:22 | PC.NURSE ---
Patient asking about receiving his lipids. Patient stating he was supposed to get another bag around 5pm. Patient getting irritable when this nurse explained that the lipids were discontinued and that the doctor was aware. Patient was redirected and stated there might have been some miscommunication.
[2023-08-12] VITALS: BP 106/67; PULSE 82; RESP 17; TEMP 36.9; O2SAT 95
[2023-08-12] MEDS: AA-Dex 5%-20% w/Lytes 1,000 ML with multivitamin inj 5 ML 83 ML IV (00:22)
[2023-08-12] MEDS: piperacillin-tazobactam 3.375 GM in sodium chloride 0.9% (plus) 50 ML IV (00:22)
[2023-08-12 02:08] VITALS: RESP 16
[2023-08-12] MEDS: HYDROmorphone 1 mg/mL INJ 1 mL 0.5 MG IVP (02:08)
[2023-08-12] MEDS: ondansetron 2 mg/ML SDV 2 mL 4 MG IVP (02:09)
--- NOTE | 2023-08-12 02:30 | PC.NURSE ---
Addendum entered by Paige Arias RN 08/12/23 03:33: Patient alert and oriented x4 at time of AMA. Original Note: AMA Patient voiced to patient care nurse Lesly Sommers LPN that he wishes to leave the hospital and that he wants medicine for pain and nausea. This nurse administered PRN Dilaudid and Zofran to patient. Patient explained they aren't doing a damned thing for me here, I'm not getting any better, this is bullshit that I can't eat or drink anything and that they want to put a tube in me, and I cannot sit here all weekend like this while the doctors take off and play golf . This nurse explained to patient that there is always a hospitalist in house and that a general surgery physician remains applications administrator throughout the weekend. This nurse reviewed patient's chart and discussed current progress notes with patient regarding his severe gastritis along with stomach ulcers. Explained to patient that the current goals for patient would be NPO status to allow his stomach to rest and heal and that as he begins to tolerate that he could advance diet to clear liquids and progress could be evaluated at that time. Patient is currently NPO but is allowed light ice chips. Patient has been unable to keep ice chips down this shift, vomiting them up shortly after ingesting them. Patient is receiving IV nutrition through PICC line and was to receive a gastric tube Monday to enhance patient nutrition. Discussed with patient that this process takes time and that it cannot be fixed overnight. Patient voices understanding. When asking patient if there is anything else this nurse can assist with patient states, Yeah, find me a doctor to get this line out of my arm so I can go home. This nurse asks patient again if he wishes to still leave the hospital at this time following discussion of plan of care. Patient states Yes, I want to leave. I can't sit here all weekend. Physician notified by Lesly Sommers LPN of patient concerns and plan to leave AMA. Physician aware that patient is receiving IV nutrition, is unable to keep PO intake down, and has a olivares catheter and PICC line in place. Physician orders to remove all lines before patient leaves. This nurse removed PICC line from left upper arm at 0240 with tip intact. Patient tolerated well and 4x4 gauze placed and wrapped with coban. Patient instructed to leave pressure dressing on for at least one hour, to apply pressure if any bleeding through bandage is noted, and to loosen or remove bandage if it becomes too tight limiting circulation. Patient states that currently bandage does not feel too tight and verbalizes understanding of instructions. Olivares catheter removed by Lesly Sommers LPN. Patient given AMA paperwork to sign and verbalizes understanding that his leaving is against medical advice. Patient verbalizes understanding that there is significant risk of upon leaving against medical advice in his current condition. Patient states that he does not know if he will be seen elsewhere but that he will have another person at home with him in case of emergency. Patient verbalizes understanding that his nutrition is poor currently with nausea, vomiting, abdominal pain, and that it is unlikely he will be able to keep anything down at home considering he cannot keep ice chips down currently. Patient is actively vomiting as he gets dressed to leave. Patient again verbalizes his wish to leave the hospital at this time. Patient belongings gathered and transported with patient in wheelchair to emergency room exit to await ride from family/friend. Director Health notified.
--- NOTE | 2023-08-12 02:45 | PC.NURSE ---
This nurse was rounding on patient. Patient was sitting pleasantly watching tv on his phone. Patient asked for some more ice chips. This nurse brought the patient about two spoonfuls of ice, enough to wet the patient's mouth. The patient laughed slightly and stated, What is this? Why is there not more. This nurse educated the patient that he is still NPO meaning he was not allowed to have anything by mouth. Patient became very agitated and stated, Fuck this, I'm leaving here. I can't do this. This nurse told the patient that I would get the patient just a little more ice chips but that it wasn't safe if he left. This nurse asked the patient how his pain and nausea was and if he needed anything for either. Patient stated yes. PATRICIA Patel Charge entered to give medication and patient was still insistent on leaving AMA. Dr. Salas was notified and he stated, Make sure the patient knows all the risks of him leaving. Inform him that he WILL without treatment. Patient was educated by this nurse and Patricia Patel Charge about the risks, including , of leaving without treatment. Patient was advised that it was in his best interest to stay and receive treatment but it is his right to leave AMA. Patient was also advised that if he was unhappy with the treatment at this facility to seek treatment at another facility. Patient asked about ways to treat condition at home. Patient was advised to stay NPO but if he were to allow oral intake, to stick to a clear liquid diet, avoiding sodas, coffee, and red or purple coloring. All lines were removed and all belongings were gathered. Patient dressed himself, while doing so, he vomited up the ice chips he had. Patient was taken to emergency room waiting room to wait for his ride via wheelchair.
--- NOTE | 2023-08-12 17:28 | PM.DCS ---
Discharge Providers Date of Admission: 08/03/23 23:25 Date of Discharge: August 12, 2023 Attending Provider at Admission: Cesario De La Cruz MD Attending Provider at Discharge: Darren Palacios MD Consults: Telemetry nephrology Surgery: Dr. Gilliland Primary Care Provider: Jodie Marshall MD Diagnoses at Discharge Discharge Diagnosis (1) Nausea and vomiting: Status: Acute (2) Gastritis: Status: Acute Qualifiers: Chronicity: acute Gastritis bleeding: without bleeding Gastritis type: unspecified gastritis Qualified Code(s): K29.00 - Acute gastritis without bleeding (3) Hypernatremia: Status: Acute (4) Acute renal failure: Status: Acute (5) Amphetamine abuse, episodic: Status: Acute (6) GERD (gastroesophageal reflux disease): Status: Acute Qualifiers: Esophagitis presence: esophagitis presence not specified Qualified Code(s): K21.9 - Gastro-esophageal reflux disease without esophagitis (7) Abdominal pain: Status: Acute Qualifiers: Abdominal location: epigastric Qualified Code(s): R10.13 - Epigastric pain (8) Single kidney: Status: Acute (9) Dehydration: Status: Acute (10) High anion gap metabolic acidosis: Status: Acute (11) Sepsis: Status: Acute Reason for Visit Reason for Visit: WEAKNESS Brief History: History as per HPI: Ezequiel Davis is a 67 year old male who recently left [place] when endoscopy was recommended for his persistent nausea and vomiting, there was concern for gastritis, patient was upset because he was not able to drink soda anymore and he left the hospital, since his discharge she has been experiencing generalized weakness, fatigue, nausea and vomiting, family found him on the floor which prompted his visit to the ER for further evaluation, in the ER he has sepsis related to gastritis, CT abdomen pelvis showing gastritis, he has acute on chronic kidney disease, significant leukocytosis, hypothermia. General surgery has been consulted, he had received septic bolus along meropenem. Patient is stating that he used marijuana today and methamphetamine 3 days ago, he has not been able to eat much, anytime he tries to eat he would vomit, endorsing subjective fevers, stating that he does not have thermometer at home, endorsing rigors, chills, stating that he was so weak today that he could not bear his weight, fell on the floor and had no strength at all to get up on his feet he did not lose consciousness, he did not experience chest pain. Because of poor p.o. intake he has had no bowel movement in last few days Hospital Course Hospital Course Patient was admitted to the hospital further evaluation and management of intractable nausea and vomiting in setting of gastritis and acute renal failure. Nephrology was consulted. Surgery was consulted. Patient was treated conservatively with IV fluids and nothing by mouth status. He underwent EGD which showed severe gastritis with clinical picture consistent with gastric outlet obstruction in setting of severe gastric edema. He was continued on conservative treatment. For nutrition was started on TPN through PICC line. Patient continues to have nausea and vomiting for which repeat CT abdomen pelvis was done which showed persistent gastritis. 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 Patient underwent repeat EGD on 08/08 at which time there was slight improvement in gastritis and Dobbhoff was placed. Patient did not tolerate Dobbhoff well and vomited in 12 hours. Renal functions resolved with IV fluids to normal baseline. Plan was to continue conservative treatment over the weekend and then depending on clinical picture on Monday plan was for possible J-tube placement. I have been told overnight patient did not tolerate being n.p.o. well and continued to get agitated and even after multiple counseling decided to leave AMA. Patient left AMA overnight hence could not be examined. Physical Exam Narrative: Examination the day prior on 08/10 as below. Patient could not be examined on the day of leaving AMA as he left around 2:30 AM. Const: COMMON NORMALS: patient oriented x3 and alert GENERAL APPEARANCE: cooperative ORIENTATION/CONSCIOUSNESS: Yes awake HENMT: COMMON NORMALS: oropharynx normal Neck/C-Spine: COMMON NORMALS: no JVD Resp: COMMON NORMALS: normal respiratory effort and clear to auscultation bilaterally AUSCULTATION: clear to auscultation bilaterally Cardio: COMMON NORMALS: no JVD, regular rhythm, S1 normal heart sound present, S2 normal heart sound present and No murmurs present (Cardio) RHYTHM: regular rhythm HEART SOUNDS: S1 normal heart sound present and S2 normal heart sound present GI: COMMON NORMALS: Normal to inspection, nondistended, normoactive bowel sounds present, Soft to palpation and non-tender PALPATION: Yes Soft to palpation Extremity: COMMON NORMALS: no joint enlargement and no pedal edema Neuro: COMMON NORMALS: patient oriented x3 and moves all extremities SENSORIUM/ORIENTATION: Yes alert Skin: COMMON NORMALS: no rashes or lesions noted GENERAL SKIN EXAM: no rashes or lesions noted Urinary Catheter Management: Mcgraw: Cath Placed During This Visit: yes, but has since been removed by the nurse Reason for Continuing Indwelling Catheter: Decision to DC Catheter Urinary Catheter Date of Insertion: 08/04/23 Urinary Catheter Time of Insertion: 00:10 Date Urinary Catheter Removed: 08/12/23 Time Urinary Catheter Discontinued: 02:40 Discharge Data Studies Completed and Pending Completed Studies During Hospitalization Category Date Time Status CT abdomen pelvis w con* [id number] Routine Cat Scan 08/08/23 09:[address] abdomen pelvis wo con [id number] Stat Cat Scan 08/03/23 22:[address] cervical spin wo con* [id number] Stat Cat Scan 08/03/23 21:[address] head wo con* [id number] Stat Cat Scan 08/03/23 21:30 Completed CXRP [XR chest 1V portable [id number]] Routine Exams 08/10/23 13:18 Completed XR KUB portable [id number] Routine Exams 08/08/23 13:46 Completed XR KUB portable [id number] Routine Exams 08/09/23 14:41 Completed XR KUB portable [id number] Routine Exams 08/10/23 08:00 Completed XR chest 1V portable [id number] Stat Exams 08/03/23 21:31 Completed Pending at discharge Category Date Time Status Pathology: Surgical [PTH] Routine Pth 08/04/23 14:51 Received Pathology: Surgical [PTH] Routine Pth 08/09/23 14:39 Received Radiology Impressions Cervical Spine CT 08/03/23 21:30 IMPRESSION: No acute cervical spine fracture or listhesis. Head CT 08/03/23 21:30 IMPRESSION: 1. No acute intracranial abnormality. 2. Small-vessel ischemic disease. Laboratory Results WBC 11.00 10^3/uL (3.29-11.43) 08/11/23 05:06 RBC 4.30 10^6/uL (3.85-5.65) 08/11/23 05:06 Hgb 13.50 g/dL (11.27-16.99) 08/11/23 05:06 Hct 43.7 % (37-53) 08/11/23 05:06 MCV 101.6 fl (82-101) H D 08/11/23 05:06 MCH 31.4 pg (27-33) 08/11/23 05:06 MCHC 30.9 g/dL (30-55) D 08/11/23 05:06 RDW 13.2 % (12.1-15.1) 08/11/23 05:06 Plt Count 231 10^3/cmm (157-399) 08/11/23 05:06 MPV 12.0 fL (7.4-10.4) H 08/11/23 05:06 Neut % (Auto) 71.8 % 08/11/23 05:06 Lymph % (Auto) 16.7 % 08/11/23 05:06 [place] % (Auto) 6.6 % 08/11/23 05:06 Eos % (Auto) 3.8 % 08/11/23 05:06 Baso % (Auto) 0.5 % 08/11/23 05:06 Neut # (Auto) 7.88 10^3/uL (1.8-7.7) H 08/11/23 05:06 Lymph # (Auto) 1.8 10^3/uL (0.8-4.8) 08/11/23 05:06 [place] # (Auto) 0.7 10^3/uL (0.2-0.9) 08/11/23 05:06 Eos # (Auto) 0.4 10^3/uL (0.0-0.8) 08/11/23 05:06 Baso # (Auto) 0.1 10^3/uL (0.0-0.1) 08/11/23 05:06 Nucleated RBC % (auto) 0 % 08/11/23 05:06 Nucleated RBCs # 0.0 /100WBC 08/11/23 05:06 PT 16.90 SECONDS (12.1-14.9) H 08/03/23 20:54 INR 1.33 (0.8-1.2) H 08/03/23 20:54 Sodium 145 mmol/L (136-145) 08/11/23 05:06 Potassium 3.8 mmol/L (3.5-5.1) 08/11/23 05:06 Chloride 113 mmol/L (98-107) H 08/11/23 05:06 Carbon Dioxide 21 mmol/L (22-29) L 08/11/23 05:06 Anion Gap 14.8 (5-19) 08/11/23 05:06 BUN 27 mg/dL (8-23) H 08/11/23 05:06 Creatinine 1.1 mg/dL (0.7-1.2) 08/11/23 05:06 GFR Calculation 66.6 mL/min (90-130) L 08/11/23 05:06 Glucose 112 mg/dL (65-115) 08/11/23 05:06 Calculated Osmolality 306 mOsm/kg (285-295) H 08/11/23 05:06 Lactic Acid 2.4 mmol/L (0.5-2.2) H 08/04/23 06:23 Lactic Acid (Sepsis) 2.5 mmol/L (0.5-2.2) H 08/04/23 11:41 Calcium 8.8 mg/dL (8.5-10.5) 08/11/23 05:06 Phosphorus 2.1 mg/dL (2.5-4.5) L 08/07/23 02:43 Magnesium 3.4 mg/dL (1.7-2.3) H 08/04/23 06:23 Total Bilirubin 0.4 mg/dL (0.15-1.2) 08/11/23 05:06 Direct Bilirubin 0.40 mg/dL (0.00-0.30) H 08/07/23 02:43 AST 34 U/L (0-40) 08/11/23 05:06 ALT 56 U/L (0-41) H 08/11/23 05:06 Alkaline Phosphatase 178 U/L (40-130) H 08/11/23 05:06 Creatine Kinase 84 U/L (39-308) 08/03/23 20:54 C-Reactive Protein 41.2 mg/L (0.0-4.9) H 08/04/23 06:23 Total Protein 6.7 g/dL (6.6-8.7) 08/11/23 05:06 Albumin 3.1 g/dL (3.5-5.2) L 08/11/23 05:06 Globulin 3.6 g/dL (1.3-4.6) 08/11/23 05:06 Urine Color Yellow (Yellow) 08/04/23 17:25 Urine Appearance Hazy (CLEAR) A 08/04/23 17:25 Urine pH 5 (5-7) 08/04/23 17:25 Ur Specific [place] 1.020 (1.005-1.030) 08/04/23 17:25 Urine Protein 1+ (Negative) H 08/04/23 17:25 Urine Glucose (UA) Norm (Normal) 08/04/23 17:25 Urine Ketones 1+ (Negative) H 08/04/23 17:25 Urine Blood 3+ (Negative) H 08/04/23 17:25 Urine Nitrate Negative (Negative) 08/04/23 17: Urine Bilirubin 1+ (Negative) H 08/04/23 17: Urine Urobilinogen 4 mg/dL (Negative) H 08/04/23 17:25 Ur Leukocyte Esterase 1+ (Negative) H 08/04/23 17:25 Urine RBC 25-40 /hpf (0-2) H 08/04/23 17:25 Urine WBC 5-10 /hpf (0-5) H 08/04/23 17:25 Ur Squamous Epith Cells 0-4 /hpf (0-5) H 08/04/23 17:25 Amorphous Sediment Not Reportable 08/04/23 17:25 Urine Bacteria 2+ /hpf (NONE) H 08/04/23 17:25 Hyaline Casts 5-10 /lpf H 08/04/23 17:25 Urine Opiates Screen Negative ng/mL (Negative) 08/04/23 00:05 Ur Barbiturates Screen Negative ng/mL (Negative) 08/04/23 00:05 Ur Phencyclidine Scrn Negative ng/mL (Negative) 08/04/23 00:05 Ur Amphetamines Screen Positive ng/mL (Negative) H 08/04/23 00:05 U Benzodiazepines Scrn Negative ng/mL (Negative) 08/04/23 00:05 Urine Cocaine Screen Negative ng/mL (Negative) 08/04/23 00:05 U Marijuana (THC) Screen Negative ng/mL (Negative) 08/04/23 00:05 Vitals Last Vital Signs Temp 98.4 F 08/12/23 00:00 Pulse 82 08/12/23 00:00 Resp 16 08/12/23 02:08 BP 106/67 08/12/23 00:00 Pulse Ox 95 08/12/23 00:00 O2 Del Method Room Air 08/11/23 08:32 Discharge Plan Discharge Patient Disposition: Left Against Medical Advice Prescriptions: No Action sucralfate [Carafate] 1 gram tablet 1 g PO TID 30 Days Qty: 90 0RF sucralfate 100 mg/mL suspension 10 ml PO BID 30 Days Qty: 840 0RF ondansetron 4 mg tablet,disintegrating 4 mg PO QID PRN (Reason: nausea and vomiting) Qty: 30 0RF pantoprazole 40 mg tablet,delayed release (DR/EC) 40 mg PO DAILY Referrals: Jodie Marshall MD [Primary Care Provider] - 08/16/23 2:00 pm Discharge Attestations Time Spent in Discharge Care*: greater than 30 min Specific Discharge Activities: educating patient Status at Discharge: Cognitive status at discharge: cognitively intact, Behavioral status at discharge: can be uncooperative, Functional status at discharge: independent ambulation, Overall status at discharge: patient is not back to baseline Quality Metrics Clinical Quality Measures [ No reported AMI, CVA or VTE this stay] Coding Level of Care Code 58365 Diagnoses Nausea and vomiting R11.2 Gastritis K29.00 Chronicity: acute Gastritis bleeding: without bleeding Gastritis type: unspecified gastritis Hypernatremia E87.0 Acute renal failure N17.9 Amphetamine abuse, episodic F15.10 Gastroesophageal reflux disease, unspecified whether esophagitis present K21.9 Esophagitis presence: esophagitis presence not specified Epigastric pain R10.13 Abdominal location: epigastric Single kidney Z90.5 Dehydration E86.0 High anion gap metabolic acidosis E87.29 Sepsis A41.9
== END 2023-08-12 02:47 | disposition left against medical advice (07) | DRG 871 ==
LOC: ER 20:28 → ICU 23:44 → MEDSURG 08-05 17:55
PROVIDERS: Internal Medicine; Surgery; Admitting Provider Internal Medicine; Emergency Provider Internal Medicine; PCP Family Medicine; Visit Provider Student in an Organized Health Care Education/Training Program
PROC: 0DJ08ZZ Inspection of Upper Intestinal Tract, Via Natural or Artificial Opening Endoscopic (ICD-10-PCS; CPT 43235; principal; 2023-08-04 14:30)
DX: A41.9 Sepsis, unspecified organism (principal); K22.11 Ulcer of esophagus with bleeding; K29.01 Acute gastritis with bleeding; N17.9 Acute kidney failure, unspecified; E87.0 Hyperosmolality and hypernatremia; E87.20 Acidosis, unspecified; K31.1 Adult hypertrophic pyloric stenosis; R65.20 Severe sepsis without septic shock; N18.9 Chronic kidney disease, unspecified; R68.0 Hypothermia, not associated with low environmental temperature; F12.10 Cannabis abuse, uncomplicated; F15.10 Other stimulant abuse, uncomplicated; Z90.5 Acquired absence of kidney; Z85.528 Personal history of other malignant neoplasm of kidney; F17.210 Nicotine dependence, cigarettes, uncomplicated; K21.9 Gastro-esophageal reflux disease without esophagitis; E86.0 Dehydration; E83.39 Other disorders of phosphorus metabolism; E83.42 Hypomagnesemia
CPT/HCPCS: 36415; 36573; 36592; 43239; 51702; 70450; 71045; 72125; 74018; 74176; 74177; 80048; 80053; 80069; 80076; 80306; 81001; 82550; 83605; 83735; 84100; 85025; 85610; 86140; 87040; 87086; 88305; 88342; 96365; 96376; 99285; C1751; C9113; J0171; J0330; J0612; J1100; J1170; J2060; J2185; J2405; J2543; J2704; J2765; J3010; J3475; J3480; J3490; J7030; J7042; J7070; Q3014; Q9967

== ENCOUNTER 2023-09-18 10:11 | Emergency (ER) | payer MEDICARE, SELFPAY ==
[2023-09-18] VITALS (7 sets, daily range): BP systolic 117–127; BP diastolic 74–92; PULSE 82–95; RESP 15–18; TEMP 36.7; O2SAT 92–100
--- NOTE | 2023-09-18 10:21 | ED_ITS ---
HPI - Nausea/Vomiting/Diarrhea 2 General: Chief complaint: Abdominal Pain Stated complaint: v/n Time Seen by Provider: 09/18/23 10:16 Source: patient Mode of arrival: ambulatory History of Present Illness: 67-year-old male with a known history of a gastric cancer was diagnosed recently has not been on any treatment yet since the diagnosis he has had strict hematemesis. Denies any chest pain. He does have a PEG tube in place. Patient was admitted to the hospital approximately 1 month ago at that time he was found to have a gastric mass which was biopsied there appeared to have a gastric adeno CA a PEG tube was placed he has been receiving all of his nutrition from that. He has had increased hematemesis the last couple of days and increasing abdominal pain. MD elicited complaint: nausea and vomiting Associated nausea: Yes Associated abdominal pain: Yes Associated symtoms: Reports nausea; Denies chest pain or dysuria Review of Systems 2 Const: Denies: fever(s) or chills Card: Denies: chest pain Resp: Denies: dyspnea GI: Reports: nausea : Denies: dysuria, urinary frequency or urinary urgency Musc: Denies: neck pain or back pain Skin/Breast: Denies: rash PFSH ED 2 PFSH: Medical History Tobacco use Distal radius fracture, left Single kidney Broken fibula Broken tibia DJD (degenerative joint disease) H/O renal cell cancer Surgical History Hx of colonoscopy 2005 [place] H/O laceration repair (05/22/20) H/O hand surgery S/p nephrectomy Left-sided nephrectomy H/O skin graft Family History Father Cancer stomach Social History Smoking and tobacco/nicotine status: current every day tobacco/nicotine user cigarettes Alcohol intake: never Physical Exam 2 Const: GENERAL APPEARANCE: cooperative and comfortable O RIENTATION/CONSCIOUSNESS: Yes awake, Yes oriented to person, Yes oriented to place and Yes oriented to time HENMT: COMMON NORMALS: normocephalic, atraumatic and hearing grossly normal bilaterally HEAD & SCALP: normocephalic and atraumatic Resp: COMMON NORMALS: normal respiratory effort, No retractions, No use of accessory muscles and clear to auscultation bilaterally AUSCULTATION: clear to auscultation bilaterally Cardio: COMMON NORMALS: regular rate, regular rhythm and No murmurs present (Cardio) RATE: regular rate RHYTHM: regular rhythm GI: COMMON NORMALS: No hepatosplenomegaly present AUSCULTATION: Yes normoactive bowel sounds PALPATION: Yes Tenderness to palpation present (GI), No Guarding due to palpation present (GI) and Yes No hepatosplenomegaly present OTHER: Palpable nodule along the right upper quadrant Extremity: COMMON NORMALS: normal to inspection, capillary refill normal, no clubbing, cyanosis or edema, no calf tenderness and no pedal edema Neuro: SENSORIUM/ORIENTATION: Yes oriented to person, Yes oriented to place and Yes oriented to time Skin: COMMON NORMALS: no rashes or lesions noted GENERAL SKIN EXAM: no rashes or lesions noted Course 2 Vital Signs: Vital signs: Vital Signs Temperature 98.1 F 09/18/23 10:16 Pulse Rate 90 09/18/23 13:56 Respiratory Rate 16 09/18/23 12:07 Blood Pressure 127/92 09/18/23 13:56 Pulse Oximetry 92 09/18/23 13:56 Oxygen Delivery Me thod Room Air 09/18/23 12:36 Oxygen Flow Rate 3 09/18/23 10:16 MDM - Nausea/Vomiting/Diarrhea Medical Decision Making Reviewed findings with patient. CT shows right-sided abdominal wall hematoma which I believe over palpating on the abdominal wall. There is a concern about actively bleeding. He has not seen anyone for the adenomas his stomach Kesonnychristos is request out for an appointment. CT shows carcinomatosis of the stomach. We discussed different options including trying to get an expedited appointment to oncology and or transferring for the abdominal hematoma. At this point prognosis is very poor given the disseminated nature of the cancer. After some discussion he would prefer to go home on hospice we have made contact with hospice we will discharge him home with hospice care back. Increase his pantoprazole to twice daily. Medical Records I reviewed the patient's medical records. Lab Data I reviewed the patient's lab results. 09/18/23 11:46 09/18/23 11:46 Radiology Impressions Abdomen/Pelvis CT 09/18/23 11:02 IMPRESSION: 1. RIGHT lateral abdominal wall hematoma involving the transverse abdominis and external oblique lateral to the rectus sheath with areas of increased attenuation suspicious for active bleeding. 2. Prior LEFT nephrectomy. 3. Suspected progression of neoplasm with diffuse induration in the upper abdomen LEFT upper quadrant mesentery suspicious for peritoneal carcinomatosis. 4. Enlarged lymph nodes in the upper abdomen. 5. Similar-appearing diffuse gastric wall thickening compatible with known carcinoma. 6. Small amount of perihepatic and perisplenic fluid is new compared to previous. 7. Jejunal feeding tube. 8. Evidence of prior ventral abdominal wall hernia repair. Notified Alan Monterroso DO at 09/18/2023 1:23 PM. Laboratory Results WBC 8.54 10^3/uL (3.29-11.43) 09/18/23 11:46 RBC 3.78 10^6/uL (3.85-5.65) L 09/18/23 11:46 Hgb 11.80 g/dL (11.27-16.99) 09/18/23 11:46 Hct 36.9 % (37-53) L 09/18/23 11:46 MCV 97.6 fl (82-101) 09/18/23 11:46 MCH 31.2 pg (27-33) 09/18/23 11:46 MCHC 32.0 g/dL (30-55) 09/18/23 11:46 RDW 15.1 % (12.1-15.1) 09/18/23 11:46 Plt Count 357 10^3/cmm (157-399) 09/18/23 11:46 MPV 10.9 fL (7.4-10.4) H 09/18/23 11:46 Neut % (Auto) 63.0 % 09/18/23 11:46 Lymph % (Auto) 21.4 % 09/18/23 11:46 [place] % (Auto) 7.3 % 09/18/23 11:46 Eos % (Auto) 6.8 % 09/18/23 11:46 Baso % (Auto) 0.8 % 09/18/23 11:46 Neut # (Auto) 5.38 10^3/uL (1.8-7.7) 09/18/23 11:46 Lymph # (Auto) 1.8 10^3/uL (0.8-4.8) 09/18/23 11:46 [place] # (Auto) 0.6 10^3/uL (0.2-0.9) 09/18/23 11:46 Eos # (Auto) 0.6 10^3/uL (0.0-0.8) 09/18/23 11:46 Baso # (Auto) 0.1 10^3/uL (0.0-0.1) 09/18/23 11:46 Nucleated RBC % (auto) 0 % 09/18/23 11:46 Nucleated RBCs # 0.0 /100WBC 09/18/23 11:46 Sodium 137 mmol/L (136-145) 09/18/23 11:46 Potassium 4.7 mmol/L (3.5-5.1) 09/18/23 11:46 Chloride 103 mmol/L (98-107) 09/18/23 11:46 Carbon Dioxide 26 mmol/L (22-29) 09/18/23 11:46 Anion Gap 12.7 (5-19) 09/18/23 11:46 BUN 10 mg/dL (8-23) 09/18/23 11:46 Creatinine 0.8 mg/dL (0.7-1.2) 09/18/23 11:46 GFR Calculation 96.1 mL/min (90-130) 09/18/23 11:46 Glucose 137 mg/dL (65-115) H 09/18/23 11:46 Calculated Osmolality 285 mOsm/kg (285-295) 09/18/23 11:46 Calcium 8.8 mg/dL (8.5-10.5) 09/18/23 11:46 Magnesium 2.2 mg/dL (1.7-2.3) 09/18/23 11:46 Total Bilirubin 0.3 mg/dL (0.15-1.2) 09/18/23 11:46 AST 18 U/L (0-40) 09/18/23 11:46 ALT 16 U/L (0-41) 09/18/23 11:46 Alkaline Phosphatase 125 U/L (40-130) 09/18/23 11:46 Total Protein 6.1 g/dL (6.6-8.7) L 09/18/23 11:46 Albumin 2.8 g/dL (3.5-5.2) L 09/18/23 11:46 Globulin 3.3 g/dL (1.3-4.6) 09/18/23 11:46 Lipase 30 U/L (13-60) 09/18/23 11:46 All radiology interpretation(s) finalized by discharge Discharge Plan Discharge Patient Disposition: Home Clinical Impression: Adenocarcinoma of stomach, Abdominal wall hematoma, Abdominal carcinomatosis Condition: Stable Prescriptions: New morphine concentrate 100 mg/5 mL (20 mg/mL) Solution 20 mg sublingual DIRECTED MDD N/A PRN (Reason: Pain/SOB) 14 Days Qty: 30 0RF Rx Instructions: 0.25ml-1ml q1H PRN may increase to 0.5ml-1ml Q1H PRN Dulcolax (bisacodyl) 10 mg Suppository 10 mg TX DAILY PRN (Reason: Constipation) Qty: 5 0RF Rx Instructions: 1 suppository per rectum every day PRN for constipation. atropine 1 % Drops 4 drp sublingual Q4H PRN (Reason: Secretions) Qty: 5 0RF Rx Instructions: 4 drops SL q 4 hours PRN for terminal congestion/excessive secretions. ondansetron 4 mg Tablet,Disintegrating 4 mg translingual Q4H PRN (Reason: Nausea) Qty: 5 0RF Rx Instructions: Dissolve 1 tablet under tongue every 4 hours PRN for nausea lorazepam 2 mg/mL Concentrate 2 mg sublingual Q4H PRN (Reason: Anxiety/Seizure) Qty: 30 0RF Rx Instructions: 0.25ml-1ml q4H PRN Anxiety/Seizure Start 0.25ml may increase to 0.5ml-1ml q4H Changed pantoprazole 40 mg tablet,delayed release (DR/EC) 40 mg PO BIDWM Qty: 60 0RF No Action sucralfate 100 mg/mL suspension 10 ml PO BID 30 Days Qty: 840 0RF ondansetron 4 mg tablet,disintegrating 4 mg PO QID PRN (Reason: nausea and vomiting) Qty: 30 0RF oxycodone 5 mg tablet 5 mg feeding tube Q8H PRN (Reason: Pain) Discharge Orders: Discharge ED (Routine); Ordered 09/18/23 Ordered By: Alan Monterroso Referrals: Jodie Marshall MD [Primary Care Provider] - Discharge Diet: Advance as tolerated Discharge Activity: Increase activity as tolerated Patient Instructions: Opioid Safety, Pain Management Activity Restrictions/Additional Instructions: Thank you for choosing [facility] for your healthcare needs today. Please realize this is an emergency room and that we are providing you with a medical screening exam and this may not be complete and all inclusive of all the testing and or work up that you may need to determine your ailment or severity of your illness. It is very important that you follow up as instructed or that you return to the Emergency Department should you have concerns or if your condition changes or worsens in any way. Hospice will evaluate you at home. Increase Protonix to twice a day. Use the as needed medications you are given to relieve discomfort. Clear liquid diet for the next 24 hours and advance as tolerated. Coding Level of Care Code ED Corrections Nurse for Chantale Soria
--- NOTE | 2023-09-18 11:02 | CT_ITS ---
WS: [id number] CT ABDOMEN PELVIS TECHNIQUE: Contrast-enhanced CT of the abdomen and pelvis with coronal and sagittal reformatted image s. CLINICAL INFORMATION: abd pain COMPARISON: CT 08/08/2023 DLP: 550.[address] scans at [facility] use at least one of these dose optimization techniques: automated e xposure control; mA and/or kV adjustment per patient size (includes targeted exams where dose is matc hed to clinical indication); or iterative reconstruction. FINDINGS: Prior LEFT nephrectomy. Evidence of prior ventral abdominal wall hernia repair. Jejunal feeding tube. Atelectasis in the lung bases. Diffuse gastric wall thickening with enhancement similar to previous. This extends to the distal stomach and proximal duodenum. Diffuse nodular induration in the upper ab dominal mesentery worse in the LEFT upper quadrant suspicious for peritoneal carcinomatosis. Enlarged lymph nodes in the upper abdomen. Small esophageal hiatal hernia. Small amount of perihepatic fluid. Nodular induration in the cardiophrenic fat pads. Fatty atrophy of the pancreas. Normal RIGHT adrenal gland. Normal RIGHT kidney. No hydronephrosis. Ti ny RIGHT renal cyst. Small amount of fluid in the LEFT upper quadrant about the spleen. Small amount of free fluid in the pelvis. Enhancing somewhat enlarged prostate with nodularity measuring 0.3 cm. Hematoma involving the RIGHT lateral abdominal wall involving the external oblique rectus abdominis w ith areas of increased attenuation suspicious for active hemorrhage. Recommend clinical correlation a nd short interval follow-up. This is just lateral to the rectus sheath. CT/CT abdomen pelvis w con* [id number] IMPRESSION: 1. RIGHT lateral abdominal wall hematoma involving the transverse abdominis an d external oblique lateral to the rectus sheath with areas of increased attenua tion suspicious for active bleeding. 2. Prior LEFT nephrectomy. 3. Suspected progression of neoplasm with diffuse induration in the upper abdo men LEFT upper quadrant mesentery suspicious for peritoneal carcinomatosis. 4. Enlarged lymph nodes in the upper abdomen. 5. Similar-appearing diffuse gastric wall thickening compatible with known car cinoma. 6. Small amount of perihepatic and perisplenic fluid is new compared to previo us. 7. Jejunal feeding tube. 8. Evidence of prior ventral abdominal wall hernia repair. Notified Alan Monterroso DO at 09/18/2023 1:23 PM.
[2023-09-18] MEDS: ondansetron 2 mg/ML SDV 2 mL 4 MG IVP (11:57)
[2023-09-18] MEDS: sodium chloride 0.9% 1,000 ML 999 ML IV (11:58)
[2023-09-18 11:59] LABS: Basophils # 0.1 10^3/uL (0.0-0.1); Basophils % 0.8 %; Eosinophils # 0.6 10^3/uL (0.0-0.8); Eosinophils % 6.8 %; Hematocrit 36.9 % (37-53); Lymphocytes # 1.8 10^3/uL (0.8-4.8); Lymphocytes % 21.4 %; Mean Corpuscular Hemoglobin 31.2 pg (27-33); Mean Corpuscular Volume 97.6 fl (82-101); Mean Platelet Volume 10.9 fL (7.4-10.4); Monocytes # 0.6 10^3/uL (0.2-0.9); Monocytes % 7.3 %; Neutrophils # 5.38 10^3/uL (1.8-7.7); Nucleated Red Blood Cells % 0 %; Platelet Count 357 10^3/cmm (157-399); Red Blood Count 3.78 10^6/uL (3.85-5.65); Red Cell Distribution Width 15.1 % (12.1-15.1); White Blood Count 8.54 10^3/uL (3.29-11.43)
[2023-09-18] MEDS: morphine 4 mg/mL SDV 1 mL IVP ×2 (12:07→15:57)
[2023-09-18] MEDS: diphenhydrAMINE 50 mg/mL SDV 1mL 25 MG IVP (12:10)
[2023-09-18 12:22] LABS: Alanine Aminotransferase 16 U/L (0-41); Albumin Level 2.8 g/dL (3.5-5.2); Alkaline Phosphatase 125 U/L (40-130); Anion Gap 12.7 (5-19); Aspartate Amino Transferase 18 U/L (0-40); Blood Urea Nitrogen 10 mg/dL (8-23); Calcium 8.8 mg/dL (8.5-10.5); Carbon Dioxide 26 mmol/L (22-29); Chloride 103 mmol/L (98-107); Creatinine Clr Calc Pharmacy 96.2125; Globulin 3.3 g/dL (1.3-4.6); Glomerular Filtration Rate 96.1 mL/min (90-130); Glucose 137 mg/dL (65-115); Lipase 30 U/L (13-60); Magnesium 2.2 mg/dL (1.7-2.3); Osmolality Calculated 285 mOsm/kg (285-295); Potassium 4.7 mmol/L (3.5-5.1); Sodium 137 mmol/L (136-145); Total Bilirubin 0.3 mg/dL (0.15-1.2); Total Protein 6.1 g/dL (6.6-8.7)
[2023-09-18] MEDS: pantoprazole 40 mg SDV 80 MG IVP (12:31)
[2023-09-18] MEDS: iohexol 350 mg/mL 500 mL Btl (per mL) IV (12:41)
[2023-09-18] MEDS: metoclopramide 5 mg/mL SDV 2 mL 10 MG IVP (13:58)
== END 2023-09-18 16:09 | disposition home or self-care (01) ==
PROVIDERS: Emergency Provider Family Medicine; PCP Family Medicine
DX: C16.9 Malignant neoplasm of stomach, unspecified (principal); S30.1XXA Contusion of abdominal wall, initial encounter; C80.0 Disseminated malignant neoplasm, unspecified; F17.210 Nicotine dependence, cigarettes, uncomplicated; Z85.528 Personal history of other malignant neoplasm of kidney
CPT/HCPCS: 74177; 80053; 83690; 83735; 85025; 96361; 96374; 96375; 96376; 99285; C9113; J1200; J2270; J2405; J2765; J7030; Q9967